=== PATIENT | male | born 1975 | race Caucasian/White ===

== ENCOUNTER → 2019-04-26 08:03 | Outpatient (CLI) | payer BC, SELFPAY ==
--- NOTE | 2019-04-26 08:09 | US_ITS ---
PROCEDURE: US ABDOMEN LIMITED CLINICAL INDICATION: SERUM TOTAL BILLIRUBIN ELEVATED COMPARISON: RUQ US RUQ-(ABD LTD)1ORGAN/QUAD/FU from 12/25/2016 FINDINGS: PANCREAS: Unremarkable. No obvious mass or abnormal fluid collection. No ductal dilatation LIVER: There is diffuse increased echogenicity of the liver with poor through transmission of sound consistent with fatty liver. There is a 16 mm cyst in the mid aspect of the liver. There is appropriate direction of blood flow within the portal vein which is slightly prominent at 15 mm. RIGHT KIDNEY: Unremarkable. Normal size and echogenicity. No hydronephrosis GALLBLADDER: Prior cholecystectomy. Common bile duct is normal at 5 mm IMPRESSION: Fatty liver with mild prominence of the portal vein. Prior cholecystectomy 16 mm hepatic cyst Dictated by: Jase Luciano MD 04/26/2019 18:32 Electronically signed by Jase Luciano MD in [place] 04/26/2019 18:32
== END ==
PROVIDERS: PCP Family Medicine; Visit Provider Family Medicine
DX: R17 Unspecified jaundice (principal)
CPT/HCPCS: 76705

== ENCOUNTER → 2019-10-24 11:44 | Outpatient (CLI) | payer BC, SELFPAY ==
--- NOTE | 2019-10-24 11:51 | XR_ITS ---
PROCEDURE: XR KNEE LT 3V CLINICAL INDICATION: ARTHROPATHY OF KNEE Pain medially COMPARISON: No exams were available for comparison FINDINGS: There are mild osteoarthritic changes of the medial compartment and patellofemoral joint. The joint spaces are well-preserved. No significant degenerative/arthritic changes. No erosive changes evident. Other findings:None. IMPRESSION: Minimal osteoarthritic change Dictated by: Jase Luciano MD 10/24/2019 13:05 Jase Luciano MD in [place] 10/24/2019 13:05
== END ==
PROVIDERS: PCP Family Medicine; Visit Provider Family Medicine
DX: M17.10 Unilateral primary osteoarthritis, unspecified knee (principal)
CPT/HCPCS: 73562

== ENCOUNTER → 2019-11-16 08:03 | Outpatient (CLI) | payer BC, SELFPAY ==
--- NOTE | 2019-11-16 08:12 | XR_ITS ---
PROCEDURE: XR KNEE LT 4V CLINICAL INDICATION: left knee pain; weightbearing COMPARISON: DX XR KNEE LT 3V from 10/24/2019 FINDINGS: There are minimal osteoarthritic changes of the medial compartment and patellofemoral joint. No fracture or dislocation. No lytic or blastic change. Other findings:None. IMPRESSION: Mild osteoarthritis Dictated by: Jase Luciano MD 11/16/2019 16:43 Jase Luciano MD in [place] 11/16/2019 16:43
== END ==
PROVIDERS: PCP Family Medicine; Visit Provider Orthopaedic Surgery
DX: M25.562 Pain in left knee (principal)
CPT/HCPCS: 73564

== ENCOUNTER → 2019-11-23 13:22 | Outpatient (CLI) | payer BC, SELFPAY ==
--- NOTE | 2019-11-23 13:23 | MR_ITS ---
PROCEDURE: MR KNEE LT WO CON CLINICAL INDICATION: left knee pain; evaluate for a meniscal tear PRIOR ARTHROSCOPIC SURGERY IN 97. MEDIAL SIDED KNEE PAIN X4-6MONTHS. KNEE INSTABILITY. PAIN WHEN BENDING AND EXTENDING WORSE WITH EXTENSION. PRIOR X-RAY 11-16-19 COMPARISON: CR XR KNEE LT 4V from 11/16/2019 TECHNIQUE: Routine multiplanar multi echo sequences are performed without gadolinium enhancement. FINDINGS: The cruciate ligaments appear intact. There is slight increased T2 signal with mild thickening of the mid aspect of the medial collateral ligament nonspecific but could be due to mild sprain. No evidence of collateral ligament tear is. The patellar cartilage is well preserved. There is a horizontal tear involving the posterior horn of the medial meniscus. There is mild thickening with increased T2 signal involving the central aspect of the medial meniscus nonspecific. There may also be a radial tear involving the central aspect of the body of the the lateral meniscus has an unremarkable appearance.. There are mild osteoarthritic changes of the medial compartment and patellofemoral joint. There is a small knee joint effusion. IMPRESSION: 1. Horizontal tear of the posterior horn of the medial meniscus with also suspected radial tear of the body of the medial meniscus. 2. Mild osteoarthritic changes of the medial compartment and patellofemoral joint with small knee joint effusion 3. Slight increased T2 signal with mild thickening of the medial collateral ligament which may be due to mild sprain Dictated by: Jase Luciano MD 11/25/2019 13:26 Jase Luciano MD in [place] 11/25/2019 13:26
== END ==
PROVIDERS: PCP Family Medicine; Visit Provider Orthopaedic Surgery
DX: M25.562 Pain in left knee (principal); G89.29 Other chronic pain
CPT/HCPCS: 73721

== ENCOUNTER → 2019-12-11 09:56 | Outpatient (CLI) | payer BC, SELFPAY ==
--- NOTE | 2019-12-11 10:25 | XR_ITS ---
PROCEDURE: XR CHEST 2V Referring Doctor: Maciel Resendez Patient Age:44Y CLINICAL HISTORY: HYPERTENSION, PRE-OP COMPARISON: No exams were available for comparison FINDINGS: PA and lateral chest performed today: Lungs are well expanded and clear with no active disease. The cardiomediastinal silhouette and pulmonary vascularity are within normal limits... The lungs are clear without infiltrates, suspicious nodules, or pleural effusions. No acute bony abnormalities. Anterior fusion lower C-spine incidentally noted. Chest wall and T-spine unremarkable IMPRESSION: Lungs clear. No active disease but . No acute cardiopulmonary findings Dictated by: Jordan Alfred MD 12/11/2019 12:32 Jordan Alfred MD in [place] 12/11/2019 12:32
[2019-12-11 10:42] LABS: Chloride 102 mmol/L (98-107)
[2019-12-11 10:43] LABS: Potassium 4.5 mmoL/L (3.5-5.1); Sodium 141 mmol/L (136-145)
--- NOTE | 2019-12-11 10:43 | ECG_ITS ---
APPROVED REPORT Exam: Resting ECG HR:84 bpm ECG Measurements Heart Rate 84 AXES WY 164 P 23 QRSd 102 QRS 46 QT 366 T 25 QTc 432 Conclusion Normal sinus rhythm Normal ECG Electronically signed by : Lamonte Paez, 12/11/2019 14:14:13
[2019-12-11 10:45] LABS: Alanine Aminotransferase 75 U/L (12-78); Aspartate Amino Transferase 38 U/L (17-59); Blood Urea Nitrogen 12 mg/dl (9-20); Estimated Glomerular Filt Rate 81 ml/min (>60); GFR (African American) 98 ML/MIN (>60)
[2019-12-11 10:46] LABS: Albumin Level 4.8 g/dl (3.5-5.0); Albumin/Globulin Ratio 1.9 (1.1-1.8); Alkaline Phosphatase 63 U/L (38-126); Anion Gap 12.5 mEq/L (5-15); Bilirubin,Total 2.9 mg/dl (0.2-1.3); Calcium 9.8 mg/dl (8.4-10.2); Carbon Dioxide 31 mmol/L (22.0-30.0); Globulin 2.5 g/dL (1.3-3.2); Glucose 150 mg/dl (74-100); Total Protein,Serum 7.3 g/dl (6.3-8.2)
[2019-12-11 10:49] LABS: Basophils # 0.1 K/mm3 (0-0.2); Basophils % 0.8 % (0.1-2.0); Eosinophils # 0.3 K/mm3 (0.0-0.4); Eosinophils % 3.5 % (0.1-12.0); Hematocrit 44.6 % (42.0-52.0); Hemoglobin 14.8 g/dL (14.1-18.0); Lymphocytes # 2.2 K/mm3 (0.7-4.5); Lymphocytes % 28.4 % (10-50); Mean Corpuscular HGB Conc 33.3 g/dL (31.8-35.4); Mean Corpuscular Hemoglobin 30.1 pg (27.0-31.2); Mean Corpuscular Volume 90.5 fl (80-94); Mean Platelet Volume 7.6 fl (7.4-10.4); Monocytes # 0.5 K/mm3 (0.1-1.0); Monocytes % 6.1 % (1.7-9.3); Neutrophils # 4.7 K/mm3 (1.8-7.8); Neutrophils % 61.3 % (37.0-80.0); Platelet Count 224 K/mm3 (142-424); Red Blood Count 4.92 M/mm3 (4.60-6.20); Red Cell Distribution Width 13.5 % (11.5-17.5); White Blood Count 7.6 K/mm3 (4.8-10.8)
[2019-12-11 13:40] LABS: Coronavirus 19 IgG Antibody Negative (Negative); Coronavirus 19 IgM Antibody Negative (Negative)
== END ==
PROVIDERS: PCP Family Medicine; Visit Provider Orthopaedic Surgery
DX: Z01.89 Encounter for other specified special examinations (principal); S83.242D Other tear of medial meniscus, current injury, left knee, subsequent encounter; M25.562 Pain in left knee; M17.12 Unilateral primary osteoarthritis, left knee; G89.29 Other chronic pain
CPT/HCPCS: 36415; 71046; 80053; 85025; 86328; 93005

== ENCOUNTER 2019-12-12 10:07 | Day surgery (SDC) | payer BC, SELFPAY ==
[2019-12-08 12:34] VITALS: BMI 41.8
[2019-12-12] VITALS (16 sets, daily range): BP systolic 121–154; BP diastolic 54–89; PULSE 67–85; RESP 16–18; TEMP 36.4–43; O2SAT 93–100
--- NOTE | 2019-12-12 11:46 | HMH.ANESCL ---
[facility] Anesthesia Checklist - Patient Identification Patient Identification: Arm Band - Structural Data Admitted From: Home Planned Operative Procedure/s: Left Knee Arthroscopy Consent for Planned Operative Procedure(s) Verified: Yes Verified Documents: Surgical Consent, History and Physical - NPO Status Verified Time NPO: 00:00 - Additional verifications Anesthesia Reactions: No Hx Blood Transfusions: No Blood Transfusion Reaction: No - Airway Assessment C-Spine Mobility Assessed: Yes (mp2) TMJ Mobility Assessed: Yes Dentition: Good Dentition - Neurological Assessment Level of Consciousness: Awake, Alert - Anesthesia Plan Anesthesia Risk discussed: Yes Anesthesia Plan: Verified ASA Class: III Anesthesia Type: General [facility] History I have reviewed the patient's past medical history: Yes Medical History: Reports:: Hyperlipidemia, Hypertension Denies:: Cancer, Diabetes Mellitus Type 1, Diabetes Mellitus Type 2, Internal Pacemaker, MRSA, Seizures *Have you ever received a pneumonia vaccine?: No *Have you received a flu vaccine this season?: No Other Medical History: Reports: Arthritis. Denies: Blood Transfusion Reaction Anesthesia experience/problems:: nac Laterality Cases: Left: Arthroscopy Knee, Bilateral: Other Other Surgeries: Yes: Cholecystectomy, Other (acdf). No: Pacemaker Amputation: No Fractures: No - *Social History Last grade of school completed: Some college Smoking Status: Never smoker Alcohol Intake: never Substance Use Type: denies use *Occupational Status:: employed Housing: house Household Members: spouse, family *Travel in the last 8 weeks: None Family Hx:: No significant family history
--- NOTE | 2019-12-12 15:10 | P.PN_ITS ---
[facility] Anesthesia Record Part I Intake, IV Amount: 750 Estimated blood loss (mL): 10 Urine output (mL): 0 Blood Products used (#): none Blood Pressure: 121/71 SaO2: 93 Pulse Rate: 67 Respiratory Rate: 18 Temperature: 97.8 F Patient is:: Drowsy, Nasal O2, Stable Stable to PACU at:: 15:06
--- NOTE | 2019-12-12 15:44 | HMH.OPNOTE ---
Date of procedure: 12/12/19 Pre-op Diagnosis:: 1. Complex tear of medial meniscus, left knee 2. Osteoarthritis, left knee Post-op Diagnosis:: 1. Complex degenerative tear of medial meniscal, left knee 2. Osteoarthritis, left knee 3. Pathological medial plica, left knee Procedure performed:: 1. Examination of left knee under anesthesia 2. Partial medial meniscectomy, left knee 3. Chondroplasty, left knee 4. Resection of medial plica, left knee Surgeon:: Maciel Resendez MD Yard Jockey(s):: Josefina Waite PREVENTIVE MAINTENANCE COORDINATOR:: Kendrick Mart Anesthesia: GETA Estimated blood loss (mL): 2 Clinical Note:: The patient is a 44-year-old male with left knee pain which is unresponsive to conservative management and evidence of a medial meniscal tear and early arthritic changes on imaging. Clinically his symptoms are consistent with the above diagnosis. Resection of the torn medial meniscus, chondroplasty and debridement is indicated to relieve the pain and improve function of the knee. He previously had arthroscopic surgery on his left knee in 1997 for a torn meniscus. Please refer to my office note for full details. Operative findings:: Examination of the left knee under anesthesia, showed a stable knee joint. There is a small amount of knee joint effusion. Knee range of motion is from 0-140? of flexion. Operative findings showed diffuse grade 2 degenerative changes over the patellar articular surface and trochlea. The medial femoral condyle and medial tibial plateau as well as the lateral compartment is well preserved. The medial meniscus had a complex degenerative tear involving the body and posterior horn. The lateral meniscus was noted to be intact. There is debris and small cartilaginous loose bodies in the knee. The anterior cruciate ligament and posterior cruciate ligaments were intact. A thickened and pathological medial plica was noted. Mild synovitis was noted. Operative note:: On the day of the procedure the patient was met in the preoperative area and positively identified. A physical examination was performed and documented. The limb was marked and initialed by me. I have again discussed the diagnosis, management options including both nonsurgical and surgical. I have discussed the proposed surgical procedure, risks and benefits and alternatives in detail. The complications discussed include but are not limited to infection, injury to nerves and blood vessels, injury to the ligaments and tendons, knee stiffness, arthrofibrosis, incomplete relief, incomplete functional recovery, DVT, PE, CRPS, complications related to anesthesia including heart attack, stroke and even . I have also discussed about the likely need for further surgery in future. I told him that there were no guarantees with surgery; he could be no better or even worse. We also discussed the postoperative recovery and rehabilitation that might be needed. I believe the patient to be well informed with regard to the proposed surgery. I told him that it would take few months for full recovery of the knee after surgery. He expressed a full understanding and wished to proceed with the planned surgery. Patient understood the risks, agreed to proceed with surgery, and no guarantees or assurances were given or implied. Patient was brought to the operating room and placed supine on the operating table. All the bony prominences were appropriately padded. A general anesthesia was administered by the machine brush maker. A well-padded tourniquet cuff was placed over the left upper thigh. Examination of the left knee under anesthesia was performed. A small amount of knee effusion was noted. Knee range of motion was 0-140 degrees of flexion. Knee joint is noted to be ligamentously stable. The left knee was then prepped and draped in the usual sterile fashion. A preprocedure timeout was performed as per protocol. Administration of prophylactic IV antibiotics was confirmed with the anesthetic team. The arthroscopic
--- NOTE | 2019-12-12 16:38 | P.PN_ITS ---
[facility] Anesthesia Record Part II Discharge Time: 15:36 Destination: Surgical Day Care (OP Surgery) PACU nurse assessment reviewed?: Yes Patient Condition:: Good Anesthesia Complications:: None Swallowing reflex intact?: Yes Cyanosis?: No Blood Pressure: 127/77 Pulse Rate: 72 Temperature: 98.0 F Mental Status: Alert & Oriented Pain level:: 8 Nausea and/or vomitting:: None Intake, IV Amount: 50
== END 2019-12-12 16:30 | disposition home or self-care (01) ==
LOC: OR 10:08
PROVIDERS: PCP Family Medicine; Visit Provider Orthopaedic Surgery
PROC: (CPT 29870; principal; 2019-12-12 11:45)
DX: M17.12 Unilateral primary osteoarthritis, left knee (principal); M25.562 Pain in left knee; M23.232 Derangement of other medial meniscus due to old tear or injury, left knee; M94.262 Chondromalacia, left knee
CPT/HCPCS: 29881; 96374

== ENCOUNTER → 2020-07-23 08:13 | Outpatient (CLI) | payer BC, SELFPAY ==
[2020-07-23 09:21] LABS: Alanine Aminotransferase 91 U/L (12-78); Albumin Level 5.2 g/dl (3.5-5.0); Albumin/Globulin Ratio 2.3 (1.1-1.8); Alkaline Phosphatase 71 U/L (38-126); Anion Gap 12.9 mEq/L (5-15); Aspartate Amino Transferase 46 U/L (17-59); Bilirubin,Total 4.3 mg/dl (0.2-1.3); Blood Urea Nitrogen 15 mg/dl (9-20); Calcium 9.7 mg/dl (8.4-10.2); Carbon Dioxide 30 mmol/L (22.0-30.0); Chloride 101 mmol/L (98-107); Chol/HDL Ratio 3.8 (1-3.5); Cholesterol 143 mg/dl (140-200); Estimated Glomerular Filt Rate 80 ml/min (>60); GFR (African American) 97 ML/MIN (>60); Globulin 2.3 g/dL (1.3-3.2); Glucose 110 mg/dl (74-100); HDL Cholesterol 38 mg/dl (40-60); Potassium 4.9 mmoL/L (3.5-5.1); Sodium 139 mmol/L (136-145); Total Protein,Serum 7.5 g/dl (6.3-8.2); Triglycerides 263 mg/dl (30-150); VLDL Cholesterol 53 mg/dL (0-40)
[2020-07-23 09:32] LABS: Direct LDL Cholesterol 68.98 mg/dL (100-129)
[2020-07-23 09:52] LABS: Thyroid Stimulating Hormone 1.86 uIU/mL (0.465-4.68)
== END ==
PROVIDERS: Visit Provider Family Medicine
DX: I10 Essential (primary) hypertension (principal); E78.5 Hyperlipidemia, unspecified
CPT/HCPCS: 36415; 80053; 80061; 84443

== ENCOUNTER → 2020-09-03 08:25 | Outpatient (CLI) | payer BC, SELFPAY ==
[2020-09-03 09:49] LABS: Chol/HDL Ratio 3.6 (1-3.5); Cholesterol 121 mg/dl (140-200); HDL Cholesterol 34 mg/dl (40-60); Triglycerides 209 mg/dl (30-150); VLDL Cholesterol 42 mg/dL (0-40)
[2020-09-03 10:02] LABS: Direct LDL Cholesterol 56.55 mg/dL (100-129)
== END ==
PROVIDERS: Visit Provider Family Medicine
DX: E78.2 Mixed hyperlipidemia (principal)
CPT/HCPCS: 36415; 80061

== ENCOUNTER 2020-12-17 08:50 | Inpatient (IN) | payer OTHER, BC, SELFPAY ==
[2020-12-17] VITALS (12 sets, daily range): BP systolic 96–139; BP diastolic 49–74; PULSE 67–80; RESP 16–20; TEMP 36.5–37.2; O2SAT 92–96; BMI 40.4
--- NOTE | 2020-12-17 09:02 | HMH.EDGENADL ---
ED Disposition Clinical Impression: Acute hypoxemic respiratory failure due to COVID-19 Disposition: Admitted As Inpatient Condition on Discharge: Fair Referrals: Logan Garza MD [Primary Care Provider] - - Critical Care Critical Care Time: No Attestation: On 12/17/20, the high probability of a clinically significant, sudden or life threatening deterioration of the following system(s) required my full and direct attention, intervention and personal management. The time I documented below is in addition to time spent performing reported procedures but includes the following listed in this critical care notation. Medical Decision Making - Medical Records Medical records reviewed: Yes: I reviewed the patient's medical records. - Brandon Inquiry Pt receiving controlled substance: No Brandon was queried for this patient: No Vital Signs: 12/17/20 08:51 12/17/20 09:30 12/17/20 10:00 Temperature 98.4 F Temperature Source Oral Pulse Rate 67 68 Pulse Rate [Left Radial] 78 Respiratory Rate 18 Blood Pressure 100/56 L 112/66 Blood Pressure [Right Arm] 107/56 L Blood Pressure Mean [Right Arm] 73 Blood Pressure Source [Right Arm] Automatic Cuff Blood Pressure Position [Right Arm] Sitting 02 Sat by Pulse Oximetry 94 L 94 L 94 L Oxygen Delivery Method Room Air Nasal Cannula Nasal Cannula Oxygen Flow Rate (LPM) 6 6 - Lab Data Lab Results 12/17/20 08:56: SARS-CoV-2 (PCR) Detected A, Influenza A Untype (PCR) Not detected, Influenza Type B (PCR) Not detected 12/17/20 09:10: Sodium 137, Potassium 3.8, Chloride 97 L, Carbon Dioxide 27, Anion Gap 16.8 H, BUN 30 H, Creatinine 1.90 H, Estimated Creat Clear 90, Estimated GFR 38 L, Est GFR ( Amer) 46 L, Glucose 109 H, Calcium 8.3 L, Total Bilirubin 2.9 H, AST 69 H, ALT 44, Alkaline Phosphatase 65, Total Protein 7.1, Albumin 4.0, Globulin 3.1, Albumin/Globulin Ratio 1.3 12/17/20 09:10: WBC 9.1, RBC 4.17 L, Hgb 12.4 L, Hct 37.4 L, MCV 89.7, MCH 29.8, MCHC 33.2, RDW 13.6, Plt Count 286, MPV 7.8, Neut % (Auto) 88.2 H, Lymph % (Auto) 8.8 L, [place] % (Auto) 2.1, Eos % (Auto) 0.5, Baso % (Auto) 0.3, Neut # (Auto) 8.1 H, Lymph # (Auto) 0.8, [place] # (Auto) 0.2, Eos # (Auto) 0.0, Baso # (Auto) 0.0, Total Counted 100, Neutrophils % (Manual) 85 H, Lymphocytes % (Manual) 14, Monocytes % (Manual) 1 L, Platelet Estimate Normal 12/17/20 09:10: Lactate 1.0 12/17/20 09:10: SARS-CoV-2 IgG Ab (Rapid) Positive A, SARS-CoV-2 IgM Ab (Rapid) Negative Result diagrams: 12/17/20 09:10 12/17/20 09:10 Orders (Tests/Meds): ED MEDICATIONS Generic Name Dose Route Start Last Admin Trade Name Freq PRN Reason Stop Dose Admin Acetaminophen 650 mg 12/17/20 09:08 12/17/20 09:15 Acetaminophen 325mg Tab PO 01/16/21 09:07 650 mg Q6HP PRN Administration Mild pain,fever,headache Ascorbic Acid 500 mg 12/17/20 13:00 Ascorbic Acid 500mg Tab PO 01/16/21 12:59 QID KIEL Dexamethasone Sodium Phosphate 6 mg 12/17/20 09:15 12/17/20 10:04 Dexamethasone 4mg/Ml 1ml Vial IV 01/16/21 09:14 6 mg DAILY KIEL Administration Ergocalciferol 50,000 unit 12/17/20 09:15 Ergocalciferol 50,000 Units (1.25mg) Capsule PO 01/16/21 09:14 WEEKLY KIEL Ibuprofen 400 mg 12/17/20 10:11 Ibuprofen 400 Mg Tablet PO 01/16/21 10:10 Q6HP PRN Mild Pain Pantoprazole Sodium 40 mg 12/17/20 10:15 Pantoprazole 40mg Tablet PO 01/16/21 10:14 DAILY KIEL Zinc Sulfate 220 mg 12/17/20 09:15 Zinc Sulfate 220mg Capsule PO 01/16/21 09:14 DAILY KIEL Discontinued Medications Generic Name Dose Route Start Last Admin Trade Name Freq PRN Reason Stop Dose Admin Sodium Chloride 1,000 mls @ 100 mls/hr 12/17/20 09:15 12/17/20 09:16 Sod Chlor 0.9% 1000ml Bag IV 01/16/21 09:14 Not Given .Q10H KIEL Lactated Ringer's 500 mls @ 999 mls/hr 12/17/20 09:15 12/17/20 09:15 Lactated Ringer's 1000 Ml Bag IV 12/17/20 09:45 Not Given .Q31M SC
--- NOTE | 2020-12-17 09:08 | XR_ITS ---
PROCEDURE: XR CHEST PORTABLE CLINICAL HISTORY: concern for covid pneumonia COMPARISON: CR XR CHEST 2V from 12/11/2019 FINDINGS: The cardiomediastinal silhouette and pulmonary vascularity are within normal limits. Multifocal bilateral ground-glass infiltrates are present in the right mid and lower lung zone in the left upper and left lower lobe. No effusions. Bone plate overlies the lower cervical spine. IMPRESSION: Bilateral multifocal pneumonia consistent with Covid19 pneumonia Dictated by: Jase Luciano MD 12/17/2020 10:32 Jase Luciano MD in [place] 12/17/2020 10:32
[2020-12-17 09:21] LABS: Influenza A, PCR Not Detected (NotDetected); Influenza B, PCR Not Detected (NotDetected)
[2020-12-17 09:28] LABS: Basophils % 0.3 % (0.1-2.0); Eosinophils % 0.5 % (0.1-12.0); Hematocrit 37.4 % (42.0-52.0); Hemoglobin 12.4 g/dL (14.1-18.0); Lymphocytes # 0.8 K/mm3 (0.7-4.5); Lymphocytes % 8.8 % (10-50); Mean Corpuscular HGB Conc 33.2 g/dL (31.8-35.4); Mean Corpuscular Hemoglobin 29.8 pg (27.0-31.2); Mean Corpuscular Volume 89.7 fl (80-94); Mean Platelet Volume 7.8 fl (7.4-10.4); Monocytes # 0.2 K/mm3 (0.1-1.0); Monocytes % 2.1 % (1.7-9.3); Neutrophils # 8.1 K/mm3 (1.8-7.8); Neutrophils % 88.2 % (37.0-80.0); Platelet Count 286 K/mm3 (142-424); Red Blood Count 4.17 M/mm3 (4.60-6.20); Red Cell Distribution Width 13.6 % (11.5-17.5); White Blood Count 9.1 K/mm3 (4.8-10.8)
[2020-12-17 09:31] LABS: Chloride 97 mmol/L (98-107); Potassium 3.8 mmoL/L (3.5-5.1); Sodium 137 mmol/L (136-145)
[2020-12-17 09:33] LABS: Alanine Aminotransferase 44 U/L (12-78); Aspartate Amino Transferase 69 U/L (17-59); Bilirubin,Total 2.9 mg/dl (0.2-1.3); Blood Urea Nitrogen 30 mg/dl (9-20); Creatinine Clearance Estimated 90 mL/min (50-200); Estimated Glomerular Filt Rate 38 ml/min (>60); GFR (African American) 46 ML/MIN (>60)
[2020-12-17 09:34] LABS: Albumin/Globulin Ratio 1.3 (1.1-1.8); Alkaline Phosphatase 65 U/L (38-126); Anion Gap 16.8 mEq/L (5-15); Calcium 8.3 mg/dl (8.4-10.2); Carbon Dioxide 27 mmol/L (22.0-30.0); Globulin 3.1 g/dL (1.3-3.2); Glucose 109 mg/dl (74-100); Total Protein,Serum 7.1 g/dl (6.3-8.2)
[2020-12-17 09:43] LABS: MANUAL DIFFERENTIAL MANUAL DIFFERENTIAL (MANUAL DIFF)
[2020-12-17 09:47] LABS: Coronavirus 19, PCR Detected (NotDetected)
[2020-12-17 09:49] LABS: Lymphocytes % 14 % (10-50); Monocytes % 1 % (2-9); Neutrophils % 85 % (42-76); Platelet Estimate Normal; Total Cells Counted 100
--- NOTE | 2020-12-17 09:55 | PC.NURSE ---
speaking with Dr. Smith
--- NOTE | 2020-12-17 09:59 | CT_ITS ---
PROCEDURE: CT ANGIO CHEST PE PROTOCOL CLINCIAL INDICATION: Covid hypoxia COMPARISON: No exams were available for comparison TECHNIQUE: IV Contrast: 70ML Isovue 370 Axial images obtained with sagittal and coronal reformats. All CT scans at the facility use one or more dose reduction, viz: automated exposure control, ma/kV adjustment per patient size (including targeted exams where dose is matched to indication, i.e. head), or iterative reconstruction technique. FINDINGS: HEART AND MEDIASTINAL STRUCTURES: No evidence of pulmonary embolus. No evidence of aortic aneurysm. There are few scattered small mediastinal lymph nodes.. LUNGS AND PLEURAL SPACES: Multifocal ground-glass infiltrates in both upper and lower lobes consistent with Covid19 pneumonia. No effusions. No evidence of pneumothorax. There are 2 hypodense hepatic lesions 1 in the left hepatic lobe segment 4 a. Where imaging for Infinitt and 1 left hepatic lobe segment 4 B. these measure approximately 2 cm and may represent hepatic cysts small Maggie portal lymph nodes are present. BONY STRUCTURES: No acute bony abnormalities apparent. UPPER ABDOMEN: Unremarkable. ADDITIONAL FINDINGS: No other significant abnormalities. IMPRESSION: 1. No evidence of pulmonary embolus. 2. Multifocal diffuse bilateral pneumonia consistent with Covid19 Dictated by: Jase Luciano MD 12/17/2020 11:07 Jase Luciano MD in [place] 12/17/2020 11:07
--- NOTE | 2020-12-17 10:04 | ECG_ITS ---
APPROVED REPORT Exam: Resting ECG HR:73 bpm ECG Measurements Heart Rate 73 AXES NE 156 P 25 QRSd 96 QRS 41 QT 402 T 15 QTc 442 Conclusion Normal sinus rhythm Normal ECG Electronically signed by : Kendrick Machado MD 12/19/2020 17:30:37
--- NOTE | 2020-12-17 10:23 | HMH.HP ---
*Admission Date: 12/17/20 *Chief complaint: Shortness of breath *History of present illness: Mr. Villatoro is a 45yo male with history of hypertension and hyperlipidemia. He presented to the [facility] ED with shortness of breath. He denies any fevers, nausea, vomiting, or diarrhea at home but does state that he has had headache, cough, fatigue, lightheadedness, and generalized body aches. His symptoms began on December 12. He has a pulse ox at home which he has been using to monitor his oxygen and notes it has dropped as low as 83% at home. He denies any history of COPD, asthma, or smoking. He has not received a COVID-19 vaccine. Upon arrival to the ED, patient was found to be hypoxic and placed on oxygen at 6lpm. His COVID screen was positive and bloodwork showed a mild NIMA with creatinine of 1.9. He was given a liter of fluids and acetaminophen and his case was discussed with Dr. Smith. He will be admitted with orders for pulmonary consult as well as IgG and IgM antibodies and Chest CT. At this time, he is resting comfortably on a stretcher. He denies any pain. His O2 sat is 95% on 6lpm. He reports considerable improvement in his shortness of breath with O2 in place although it increased with any movement. CXR and Chest CT have both been completed and reports are pending. [facility] History Medical History: Reports:: Hyperlipidemia, Hypertension Denies:: Cancer, Diabetes Mellitus Type 1, Diabetes Mellitus Type 2, Internal Pacemaker, MRSA, Seizures *Have you ever received a pneumonia vaccine?: No *Have you received a flu vaccine this season?: No Other Medical History: Reports: Arthritis. Denies: Blood Transfusion Reaction Laterality Cases: Left: Arthroscopy Knee, Bilateral: Other Other Surgeries: Yes: Cholecystectomy, Other (acdf). No: Pacemaker Amputation: No Fractures: No - *Social History Smoking Status: Never smoker Alcohol Intake: never Substance Use Type: denies use *Occupational Status:: employed Housing: house Household Members: spouse, family *Travel in the last 8 weeks: None Family Hx:: Cancer, Coronary Artery Disease, Diabetes, Hypertension Review of Systems - Constitutional Reports body ache(s), Reports fatigue, Reports headache(s), Denies chills, Denies fever(s) - Eyes Reports blurry vision, Reports change in vision - ENT Reports dizziness, Reports headache(s), Denies difficulty swallowing, Denies ear pain, Denies nasal congestion, Denies pain with swallowing, Denies post nasal drip, Denies sinus pain, Denies sore throat - *Cardiovascular Reports shortness of breath, Reports shortness of breath with activity, Reports lightheadedness, Denies chest pain, Denies irregular heart rhythm, Denies leg swelling, Denies rapid, pounding, or irregular heartbeat - *Respiratory Reports chest congestion, Reports cough, Reports shortness of breath, Reports shortness of breath with activity, Reports pain with cough - *Gastrointestinal Denies abdominal pain, Denies loose stools, Denies nausea, Denies vomiting - *Genitourinary Denies difficulty urinating - *Musculoskeletal Reports body aches - Integumentary/Breasts Denies rash - *Neurologic Reports headache(s) - Psychiatric Denies abnormal sleep pattern - Endocrine Denies rapid, pounding, or irregular heartbeat - Hematologic/Lymphatic Denies enlarged lymph nodes Meds Home Medications Medication Instructions Recorded Confirmed Type atorvastatin 10 mg tablet 10 mg PO DAILY tab 11/16/19 12/14/19 History Losartan/Hydrochlorothiazide 1 tab PO DAILY 12/17/20 12/17/20 History [Losartan-Hctz 100-12.5 mg Tab] Allergies Allergy/AdvReac Type Severity Reaction Status Date / Time No Known Allergies Allergy Verified 12/27/19 13:24 Exam Vital signs and Labs for Last 24 Hours: Temp Pulse Resp BP Pulse Ox 98.4 F 78 18 107/56 L 94 L 12/17/20 08:51 12/17/20 08:51 12/17/20 08:51 12/17/20 08:51 12/17/20 08:51 Laboratory Results - last 24
[2020-12-17 10:35] LABS: Coronavirus 19 IgG Antibody Positive (Negative); Coronavirus 19 IgM Antibody Negative (Negative)
--- NOTE | 2020-12-17 10:38 | PC.NURSE ---
Pt returned from rad
--- NOTE | 2020-12-17 11:20 | PC.NURSE ---
Report called to Suzy HARRY, waiting for confirmation on room being clean and then pt will be moved
--- NOTE | 2020-12-17 11:39 | HMH.PHAINT ---
MEDICATION RECONCILIATION COMPLETE USING [employer]URESCRIPTS INFO
--- NOTE | 2020-12-17 18:31 | PC.NURSE ---
PT IS RESTING IN BED. NO COMPLAINTS OF DISCOMFORT. ALERT AND ORIENTED X4. O2 SATURATION HAS MAINTAINED 90-94% ON 4 L NC. LUNG SOUNDS DIMINISHED WITH BILATERAL CRACKLES. ABDOMEN SOFT/NON TENDER WITH ACTIVE BOWEL SOUNDS. AMBULATES TO THE BATHROOM. WILL CONTINUE TO MONITOR.
[2020-12-17 19:59] LABS: Alanine Aminotransferase 47 U/L (12-78); Albumin Level 3.7 g/dl (3.5-5.0); Albumin/Globulin Ratio 1.2 (1.1-1.8); Alkaline Phosphatase 58 U/L (38-126); Anion Gap 14.7 mEq/L (5-15); Aspartate Amino Transferase 65 U/L (17-59); Bilirubin,Total 2.5 mg/dl (0.2-1.3); Blood Urea Nitrogen 23 mg/dl (9-20); Carbon Dioxide 28 mmol/L (22.0-30.0); Chloride 99 mmol/L (98-107); Creatinine Clearance Estimated 143 mL/min (50-200); Estimated Glomerular Filt Rate 65 ml/min (>60); GFR (African American) 79 ML/MIN (>60); Globulin 3.1 g/dL (1.3-3.2); Glucose 169 mg/dl (74-100); Potassium 3.7 mmoL/L (3.5-5.1); Sodium 138 mmol/L (136-145); Total Protein,Serum 6.8 g/dl (6.3-8.2)
--- NOTE | 2020-12-17 22:51 | PC.NURSE ---
7855 humidification added to patient's O2
[2020-12-18] VITALS (12 sets, daily range): BP systolic 94–137; BP diastolic 53–74; PULSE 66–86; RESP 18–24; TEMP 36.9–38.9; O2SAT 87–98; BMI 40.6
--- NOTE | 2020-12-18 07:11 | HMH.PHAVTE ---
[facility] Pharmacy VTE Monitoring - Patient Demographics Admission date: 12/17/20 Report Date: 12/18/20 Time: 07:11 Allergies/Adverse Reactions: Patient Allergies No Known Allergies Allergy (Verified 12/27/19 13:24) Height: 1.8 m Weight: 131.542 kg Patient Problems: Current Active Problems Acute hypoxemic respiratory failure due to COVID-19 (Acute) - VTE Risk Labs: VTE Related Lab Results Hgb 12.4 g/dL (14.1-18.0) L 12/17/20 09:10 Hct 37.4 % (42.0-52.0) L 12/17/20 09:10 Plt Count 286 K/mm3 (142-424) 12/17/20 09:10 BUN 23 mg/dl (9-20) H 12/17/20 18:55 Creatinine 1.20 mg/dl (0.66-1.25) D 12/17/20 18:55 Estimated Creat Clear 143 mL/min (50-200) 12/17/20 18:55 Was VTE Risk Assessment Performed: Yes VTE Score: 1 Clinical Trial Participant: No - Prophylaxis VTE Prophylaxis Ordered?: Yes Types of VTE Prophylaxis: TEDS Knee High, Pharmacological Pharmacologic Type: Enoxaparin
--- NOTE | 2020-12-18 08:16 | P.PN_ITS ---
Internal Medicine - PN: Subj *Date: 12/18/20 *Time: 08:16 Interval history: Patient states he feels terrible this morning. He did not sleep last night due to fever, cough, and IV beeping. He is not interested in eating. Feels short of breath. He has some midsternal chest discomfort as well as a sore throat. O2 sat at 92 with O2 at 6 L/min.Temperature was 100.8 and then 99.6 this a.m. Exam Vital signs and Labs for Last 24 Hours: Temp Pulse Resp BP Pulse Ox 99.6 F 81 20 110/62 92 L 12/18/20 04:00 12/18/20 04:00 12/18/20 04:00 12/18/20 04:00 12/18/20 04:00 Laboratory Results - last 24 hr 12/17/20 08:56: SARS-CoV-2 (PCR) Detected A, Influenza A Untype (PCR) Not detected, Influenza Type B (PCR) Not detected 12/17/20 09:10: Sodium 137, Potassium 3.8, Chloride 97 L, Carbon Dioxide 27, Anion Gap 16.8 H, BUN 30 H, Creatinine 1.90 H, Estimated Creat Clear 90, Estimated GFR 38 L, Est GFR ( Amer) 46 L, Glucose 109 H, Calcium 8.3 L, Total Bilirubin 2.9 H, AST 69 H, ALT 44, Alkaline Phosphatase 65, Total Protein 7.1, Albumin 4.0, Globulin 3.1, Albumin/Globulin Ratio 1.3 12/17/20 09:10: WBC 9.1, RBC 4.17 L, Hgb 12.4 L, Hct 37.4 L, MCV 89.7, MCH 29.8, MCHC 33.2, RDW 13.6, Plt Count 286, MPV 7.8, Neut % (Auto) 88.2 H, Lymph % (Auto) 8.8 L, Lane % (Auto) 2.1, Eos % (Auto) 0.5, Baso % (Auto) 0.3, Neut # (Auto) 8.1 H, Lymph # (Auto) 0.8, Lane # (Auto) 0.2, Eos # (Auto) 0.0, Baso # (Auto) 0.0, Total Counted 100, Neutrophils % (Manual) 85 H, Lymphocytes % (Manual) 14, Monocytes % (Manual) 1 L, Platelet Estimate Normal 12/17/20 09:10: Lactate 1.0 12/17/20 09:10: SARS-CoV-2 IgG Ab (Rapid) Positive A, SARS-CoV-2 IgM Ab (Rapid) Negative 12/17/20 18:55: Sodium 138, Potassium 3.7, Chloride 99, Carbon Dioxide 28, Anion Gap 14.7, BUN 23 H, Creatinine 1.20 D, Estimated Creat Clear 143, Estimated GFR 65, Est GFR ( Amer) 79 D, Glucose 169 H D, Calcium 8.0 L, Total Simeon irubin 2.5 H, AST 65 H, ALT 47, Alkaline Phosphatase 58, Total Protein 6.8, Albumin 3.7, Globulin 3.1, Albumin/Globulin Ratio 1.2 I & O for Last 24 hours: Intake & Output 12/15/20 12/16/20 12/17/20 12/18/20 11:59 11:59 11:59 11:59 Intake Total 720 / 720 Output Total 2800 / 2800 Balance -2079 / -2080 Weight 290 lb 290 lb - Constitutional no acute distress Comments: Parents uncomfortable and somewhat anxious. - *Routine HEENT Exam ENT: Present: mucous membranes moist, oropharynx clear - *Routine Respiratory Exam Present: crackles (In all lobes on the left. Right basilar crackles) - *Routine Cardiovascular Exam Present: RRR - *Routine Abdominal Exam Present: soft, normoactive bowel sounds. Absent: tenderness - *Routine Extremities Exam Present: pulses intact. Absent: edema, calf tenderness - *Routine Neurological Exam Present: alert, oriented X3 Assessment and Plan (1) Acute hypoxemic respiratory failure due to COVID-19 Status: Acute Category: Medical Code(s): U07.1 - COVID-19; J96.01 - Acute respiratory failure with hypoxia - Assessment and plan all Dx Assessment and Plan for all problems:: We will repeat chest x-ray and labs this a.m. We will start duo nebs. Continue with Motrin and Tylenol for fever and discomfort. Pulmonary to see patient today
--- NOTE | 2020-12-18 08:21 | XR_ITS ---
PROCEDURE: XR CHEST PORTABLE CLINICAL HISTORY: COVID pneumonia; cough COMPARISON: CR XR CHEST 2V from 12/11/[address] ANGIO CHEST PE PROTOCOL from 12/17/2020 CR XR CHEST PORTABLE from 12/17/2020 FINDINGS: The cardiomediastinal silhouette and pulmonary vascularity are within normal limits. Diffuse bilateral airspace disease is once again noted and appears worse in both upper and lower lobes with some sparing of the right apex. No evidence of pneumothorax. No acute bony abnormalities. IMPRESSION: Worsening bilateral airspace disease consistent with worsening Covid19 pneumonia Dictated by: Jase Luciano MD 12/18/2020 09:26 Jase Luciano MD in [place] 12/18/2020 09:26
[2020-12-18 08:40] LABS: Basophils % 0.3 % (0.1-2.0); Eosinophils % 0.1 % (0.1-12.0); Hematocrit 36.2 % (42.0-52.0); Lymphocytes % 10.2 % (10-50); Mean Corpuscular HGB Conc 33.2 g/dL (31.8-35.4); Mean Corpuscular Volume 90.5 fl (80-94); Mean Platelet Volume 7.7 fl (7.4-10.4); Monocytes # 0.3 K/mm3 (0.1-1.0); Monocytes % 2.6 % (1.7-9.3); Neutrophils # 8.7 K/mm3 (1.8-7.8); Neutrophils % 86.9 % (37.0-80.0); Platelet Count 324 K/mm3 (142-424); Red Blood Count 3.99 M/mm3 (4.60-6.20); Red Cell Distribution Width 13.4 % (11.5-17.5)
[2020-12-18 08:45] LABS: MANUAL DIFFERENTIAL MANUAL DIFFERENTIAL (MANUAL DIFF)
[2020-12-18 09:02] LABS: Lymphocytes % 9 % (10-50); Monocytes % 1 % (2-9); Neutrophils % 90 % (42-76); Platelet Estimate Normal; Total Cells Counted 100
[2020-12-18 09:10] LABS: Chloride 103 mmol/L (98-107)
[2020-12-18 09:11] LABS: Potassium 3.6 mmoL/L (3.5-5.1); Sodium 140 mmol/L (136-145)
[2020-12-18 09:13] LABS: Alanine Aminotransferase 45 U/L (12-78); Albumin Level 3.4 g/dl (3.5-5.0); Albumin/Globulin Ratio 1.3 (1.1-1.8); Alkaline Phosphatase 62 U/L (38-126); Anion Gap 11.6 mEq/L (5-15); Aspartate Amino Transferase 69 U/L (17-59); Bilirubin,Total 2.1 mg/dl (0.2-1.3); Blood Urea Nitrogen 18 mg/dl (9-20); Carbon Dioxide 29 mmol/L (22.0-30.0); Creatinine Clearance Estimated 95 mL/min (50-200); Estimated Glomerular Filt Rate 80 ml/min (>60); GFR (African American) 97 ML/MIN (>60); Globulin 2.7 g/dL (1.3-3.2); Total Protein,Serum 6.1 g/dl (6.3-8.2)
[2020-12-18 09:14] LABS: Glucose 119 mg/dl (74-100)
--- NOTE | 2020-12-18 10:43 | HMH.PULMCON ---
*Admission Date: 12/17/20 *Reason for consult:: Acute hypoxic respiratory failure, COVID-19 pneumonia *History of present illness: Mr. Villatoro is a 45-year-old male yet to be vaccinated works for [employer], high risk for exposure presented to the hospital with worsening shortness of breath and respiratory distress for the last 4 days gradually getting worse eventually and presented to the ED patient was needing 6 to 10 L nasal cannula supplementation to maintain saturations are low and pulmonary was called for further management. [facility] History Medical History: Reports:: Hyperlipidemia, Hypertension Denies:: Cancer, Diabetes Mellitus Type 1, Diabetes Mellitus Type 2, Internal Pacemaker, MRSA, Seizures *Have you ever received a pneumonia vaccine?: No *Have you received a flu vaccine this season?: No Other Medical History: Reports: Arthritis. Denies: Blood Transfusion Reaction Laterality Cases: Left: Arthroscopy Knee, Bilateral: Other Other Surgeries: Yes: Cholecystectomy, Other (acdf). No: Pacemaker Amputation: No Fractures: No - *Social History Last grade of school completed: Some college Smoking Status: Never smoker Alcohol Intake: never Substance Use Type: denies use *Occupational Status:: employed Housing: house Household Members: spouse *Travel in the last 8 weeks: None Family Hx:: Cancer, Coronary Artery Disease, Diabetes, Hypertension ROS - Cons Reports anorexia, Reports fever(s) - Eyes Denies change in vision - ENT Denies bleeding gums - Card Reports shortness of breath, Reports shortness of breath with activity - Resp Respiratory: Reports shortness of breath, Reports chest congestion, Reports cough, Reports dyspnea on exertion, Denies excessive phlegm production - GI Gastrointestingal: Reports: abdominal pain. Denies: change in stool character, coffee ground emesis - Psych Reports abnormal sleep pattern Meds Home Medications Medication Instructions Recorded Confirmed Type atorvastatin 10 mg tablet 10 mg PO HS tab 11/16/19 12/17/20 History Losartan/Hydrochlorothiazide 1 tab PO DAILY 12/17/20 12/17/20 History [Losartan-Hctz 100-12.5 mg Tab] Allergies Allergy/AdvReac Type Severity Reaction Status Date / Time No Known Allergies Allergy Verified 12/27/19 13:24 Exam - Constitutional Constitutional:: Present: no acute distress, comfortable - HENMT Exam HENMT: Present: normocephalic, atraumatic - Eye Exam Eyes:: Present: normal appearance both eyes and related structures - Neck Exam Neck:: Present: normal visual inspection - Respiratory Exam Respiratory:: Present: respiratory distress, crackles, rales. Absent: able to speak in complete sentences - Cardiovascular Exam Cardiac:: Present: S1, S2 - GI Exam GI:: Present: soft - Skin Exam Skin: Present: warm, no rash, dry - Neurological Exam Neurological: Present: alert, awake, normal cognition - Extremities Exam Extremities: Present: no cyanosis, no clubbing, no edema Internal Medicine - CN: Reslt - Labs CBC & Chem 7: 12/18/20 08:29 12/18/20 08:29 Labs: Short CBC 12/18/20 Range/Units 08:29 WBC 10.0 (4.8-10.8) K/mm3 Hgb 12.0 L (14.1-18.0) g/dL Hct 36.2 L (42.0-52.0) % Plt Count 324 (142-424) K/mm3 BMP 12/17/20 12/18/20 18:55 08:29 Sodium 138 140 Potassium 3.7 3.6 Chloride 99 103 Carbon Dioxide 28 29 BUN 23 H 18 Creatinine 1.20 D 1.00 Glucose 169 H D 119 H D Calcium 8.0 L 8.0 L Liver Function 12/17/20 12/18/20 Range/Units 18:55 08:29 Total Bilirubin 2.5 H 2.1 H (0.2-1.3) mg/dl AST 65 H 69 H (17-59) U/L ALT 47 45 (12-78) U/L Alkaline Phosphatase 58 62 (38-126) U/L Albumin 3.7 3.4 L (3.5-5.0) g/dl Assessment and Plan (1) Acute hypoxemic respiratory failure due to COVID-19 Status: Acute Category: Medical Code(s): U07.1 - COVID-19; J96.01 - Acute respiratory failure with hypoxia - Assessment and plan all Dx
--- NOTE | 2020-12-18 10:50 | CA_ITS ---
APPROVED REPORT Bilateral Lower Extremity Venous Study for DVT. Pit Slagman: AUSTIN SzymanskiT Indications Shortness of breath Hypoxia,Covid Vein Imaging CFV (R): compressive, spontaneous, phasic, augmentation FEM (R): compressive, spontaneous, phasic, augmentation POP (R): compressive, spontaneous, phasic, augmentation PTV (R): Compressible GSV (R): Compressible Peroneals (R):Compressible GAS (R): Compressible CFV (L): compressive, spontaneous, phasic, augmentation FEM (L): compressive, spontaneous, phasic, augmentation POP (L): compressive, spontaneous, phasic, augmentation PTV (L): Compressible GSV (L): Compressible Peroneals (L):Compressible GAS (L): Compressible Findings Study suggests no evidence of DVT or SVT of the bilateral lower extremites. Conclusion Study suggests no evidence of DVT or SVT of the bilateral lower extremites. Electronically signed by : Jase Luciano MD 12/19/2020 18:49:39
[2020-12-18 11:54] LABS: D-Dimer 1.41 ug/mL (0.0-0.5)
[2020-12-18 12:37] LABS: C-Reactive Protein 122.3 mg/L (0-4)
[2020-12-18 13:53] LABS: Ferritin 1790 ng/ml (17.9-464)
--- NOTE | 2020-12-18 17:28 | PC.NURSE ---
Pt has been pleasant and cooperative this shift. A&O X4. No complaints of pain or SOA. Pt is currently receiving O2 via Vapotherm @ 35 LPM/70% O2 with sats. >90%. Lung sounds reveal crackles. No edema noted. Skin is C/D/I. Pt ambulates independently. Pt prones as tolerated. Pt uses the urinal to void clear, yellow urine without issue. No BM thus far this shift. Pt has slept intermittently this shift. Pt is tolerating a regular diet and eats the majority of all meals. 20 G peripheral IV in place to the RT forearm is patent and infusing NS @ 100 ML/HR. VSS. Call light within reach. Will continue to monitor.
[2020-12-19] VITALS (9 sets, daily range): BP systolic 101–132; BP diastolic 53–73; PULSE 61–82; RESP 18–21; TEMP 36.8–37.8; O2SAT 90–97; BMI 40.7
--- NOTE | 2020-12-19 06:01 | HMH.PULMPN ---
Internal Medicine - PN: Subj *Date: 12/19/20 *Time: 12:01 Interval history: No acute respiratory events overnight. Patient admits continued improvement in his symptoms. Exam - Constitutional Constitutional:: Present: no acute distress, comfortable - HENMT Exam HENMT: Present: normocephalic, atraumatic - Eye Exam Eyes:: Present: normal appearance both eyes and related structures - Neck Exam Neck:: Present: normal visual inspection - Respiratory Exam Respiratory:: Present: able to speak in complete sentences, respiratory distress, rales. Absent: crackles, wheezing - Cardiovascular Exam Cardiac:: Present: S1, S2 - GI Exam GI:: Present: soft - Skin Exam Skin: Present: warm, no rash - Neurological Exam Neurological: Present: alert, awake, normal cognition - Extremities Exam Extremities: Present: no cyanosis, no clubbing, no edema Assessment and Plan (1) Acute hypoxemic respiratory failure due to COVID-19 Status: Acute Category: Medical Code(s): U07.1 - COVID-19; J96.01 - Acute respiratory failure with hypoxia - Assessment and plan all Dx Assessment and Plan for all problems:: #Acute hypoxic respiratory failure: #COVID-19 pneumonia: Mr. Villatoro is a 45-year-old male never smoker no prior respiratory complaints, yet to be vaccinated worse when he was [employer] high risk occupation exposure denies any prior known exposure or COVID-19 symptoms presented to hospital with worsening respiratory distress for the last 4 days. CTA on admission did not show any evidence of pulmonary them however showed bilateral diffuse groundglass opacities. Renal function stable. Patient on admission was initiated on levofloxacin along with remdesivir dexamethasone for his COVID-19 pneumonia. D-dimer at 1.41, CRP elevated at 122 ferritin at 1790.. Patient respiratory status continued to improve, he was saturating 96% this morning while proned. Plan: -F/U LE venous doppler result -Continue proning protocol -Continue high flow nasal cannula oxygen supplementation with O2 saturation goal of 90% and above, wean aggressively as tolerated with O2 saturation goal of 88 to 92%. -Continue levofloxacin for total of 5 days, will obtain sputum cultures. -Continue remdesivir and dexamethasone x 10 days and Barcitinib x14 days. -Advair HFA 250 twice daily scheduled. -DuoNebs every 6 hours as needed. Thank you involving pulmonary in this patient care. We will continue to follow. .
[2020-12-19 07:45] LABS: Chloride 107 mmol/L (98-107)
[2020-12-19 07:46] LABS: Sodium 142 mmol/L (136-145)
[2020-12-19 07:48] LABS: Alanine Aminotransferase 50 U/L (12-78); Albumin Level 3.5 g/dl (3.5-5.0); Albumin/Globulin Ratio 1.3 (1.1-1.8); Alkaline Phosphatase 64 U/L (38-126); Aspartate Amino Transferase 76 U/L (17-59); Bilirubin,Total 2.1 mg/dl (0.2-1.3); Blood Urea Nitrogen 14 mg/dl (9-20); Carbon Dioxide 26 mmol/L (22.0-30.0); Creatinine Clearance Estimated 136 mL/min (50-200); Estimated Glomerular Filt Rate 121 ml/min (>60); GFR (African American) 147 ML/MIN (>60); Globulin 2.7 g/dL (1.3-3.2); Total Protein,Serum 6.2 g/dl (6.3-8.2)
[2020-12-19 07:49] LABS: Glucose 122 mg/dl (74-100)
--- NOTE | 2020-12-19 08:07 | HMH.ACPN2 ---
Internal Medicine - PN: Subj *Date: 12/19/20 *Time: 08:18 Interval history: Patient states he feels somewhat better today. Feels his breathing is better although he still short of breath with any movement. His cough is less and is sometimes productive. He voids QS and states his urine is dark. He does not feel much like eating but is drinking fluids well. His chest discomfort has much improved. Renal function has normalized. He is afebrile. UA he is now on Vapotherm at 70% with O2 sats ranging around 96%. Chest x-ray from yesterday revealed worsening bilateral airspace disease consistent with worsening COVID-19 pneumonia. Sputum cultures pending. Exam Vital signs and Labs for Last 24 Hours: Temp Pulse Resp BP Pulse Ox 98.8 F 82 20 132/68 96 12/19/20 04:15 12/19/20 06:26 12/19/20 04:15 12/19/20 04:15 12/19/20 06:26 Laboratory Results - last 24 hr 12/18/20 08:29: Sodium 140, Potassium 3.6, Chloride 103, Carbon Dioxide 29, Anion Gap 11.6, BUN 18, Creatinine 1.00, Estimated Creat Clear 95, Estimated GFR 80, Est GFR ( Amer) 97 D, Glucose 119 H D, Calcium 8.0 L, Total Bilirubin 2.1 H, AST 69 H, ALT 45, Alkaline Phosphatase 62, Total Protein 6.1 L, Albumin 3.4 L, Globulin 2.7, Albumin/Globulin Ratio 1.3 12/18/20 08:29: WBC 10.0, RBC 3.99 L, Hgb 12.0 L, Hct 36.2 L, MCV 90.5, MCH 30.0, MCHC 33.2, RDW 13.4, Plt Count 324, MPV 7.7, Neut % (Auto) 86.9 H, Lymph % (Auto) 10.2, Ness % (Auto) 2.6, Eos % (Auto) 0.1, Baso % (Auto) 0.3, Neut # (Auto) 8.7 H, Lymph # (Auto) 1.0, Ness # (Auto) 0.3, Eos # (Auto) 0.0, Baso # (Auto) 0.0, Total Counted 100, Neutrophils % (Manual) 90 H, Lymphocytes % (Manual) 9 L, Monocytes % (Manual) 1 L, Platelet Estimate Normal 12/18/20 11:23: D-Dimer 1.41 H 12/18/20 11:23: Ferritin 1790 H, C-Reactive Protein 122.3 H 12/19/20 06:34: Sodium 142, Potassium 4.0, Chloride 107, Carbon Dioxide 26, Anion Gap 13.0, BUN 14, Creatinine 0.70 D, Estimated Creat Clear 136, Estimated GFR 121, Est GFR ( Amer) 147 D, Glucose 122 H, Calcium 8.0 L, Total Bilirubin 2.1 H, AST 76 H, ALT 50, Alkaline Phosphatase 64, Total Protein 6.2 L, Albumin 3.5, Globulin 2.7, Albumin/Globulin Ratio 1.3 I & O for Last 24 hours: Intake & Output 12/16/20 12/17/20 12/18/20 12/19/20 11:59 11:59 11:59 11:59 Intake Total 840 / 840 3402 / 3402 Output Total 2800 / 2800 3150 / 3150 Balance -1960 / -1960 252 / 252 Weight 290 lb 290 lb Microbiology Reports for the Last 24 Hours: Microbiology 12/17/20 18:20 Sputum - Expectorated Sputum Gram Stain - Final - Constitutional no acute distress (Awakened for assessment. He appears to be improved. He has been lying prone.) - *Routine Respiratory Exam Present: crackles Comments: Few crackles but much improved from yesterday. Some decreased breath sounds on the right. - *Routine Cardiovascular Exam Present: RRR - *Routine Extremities Exam Present: pulses intact. Absent: edema, calf tenderness - *Routine Neurological Exam Present: alert, oriented X3 Assessment and Plan (1) Acute hypoxemic respiratory failure due to COVID-19 Status: Acute Category: Medical Code(s): U07.1 - COVID-19; J96.01 - Acute respiratory failure with hypoxia (2) Pneumonia due to COVID-19 virus Status: Acute Category: Medical Code(s): U07.1 - COVID-19; J12.82 - Pneumonia due to coronavirus disease 2019 - Assessment and plan all Dx Assessment and Plan for all problems:: Continue with current pulmonary care. Patient seen by pulmonary yesterday and is appreciated. He will continue to follow. Will saline lock IV since patient is drinking well and renal function has returned to normal.
--- NOTE | 2020-12-19 11:00 | PC.NURSE ---
Sacral wound cleaned with sterile water. Wound vac dressing changed and window dressing applied to sacral wound. Barrier film placed first, then foam imbedded into site. Wound vac set to 125. No further orders at this time.
[2020-12-20] VITALS (16 sets, daily range): BP systolic 99–130; BP diastolic 44–96; PULSE 54–91; RESP 16–30; TEMP 37–38.8; O2SAT 88–99; BMI 40.7
[2020-12-20 07:03] LABS: Chloride 103 mmol/L (98-107); Potassium 3.7 mmoL/L (3.5-5.1); Sodium 140 mmol/L (136-145)
[2020-12-20 07:06] LABS: Alanine Aminotransferase 43 U/L (12-78); Albumin Level 3.1 g/dl (3.5-5.0); Albumin/Globulin Ratio 1.3 (1.1-1.8); Alkaline Phosphatase 69 U/L (38-126); Anion Gap 12.7 mEq/L (5-15); Aspartate Amino Transferase 69 U/L (17-59); Bilirubin,Total 2.8 mg/dl (0.2-1.3); Blood Urea Nitrogen 15 mg/dl (9-20); Calcium 7.9 mg/dl (8.4-10.2); Carbon Dioxide 28 mmol/L (22.0-30.0); Creatinine Clearance Estimated 106 mL/min (50-200); Estimated Glomerular Filt Rate 91 ml/min (>60); GFR (African American) 110 ML/MIN (>60); Globulin 2.4 g/dL (1.3-3.2); Glucose 94 mg/dl (74-100); Total Protein,Serum 5.5 g/dl (6.3-8.2)
--- NOTE | 2020-12-20 08:51 | HMH.ACPN2 ---
Internal Medicine - PN: Subj *Date: 12/20/20 *Time: 08:51 Interval history: Patient states he is feeling a little bit better today. He still has shortness of breath with any exertion. He has been sleeping prone. He states he does have some back pain. He is drinking but does not feel like eating. Exam Vital signs and Labs for Last 24 Hours: Temp Pulse Resp BP Pulse Ox 100.3 F H 63 20 105/72 L 95 12/20/20 04:00 12/20/20 04:00 12/20/20 04:00 12/20/20 04:00 12/20/20 06:25 Laboratory Results - last 24 hr 12/20/20 06:17: Sodium 140, Potassium 3.7, Chloride 103, Carbon Dioxide 28, Anion Gap 12.7, BUN 15, Creatinine 0.90 D, Estimated Creat Clear 106, Estimated GFR 91, Est GFR ( Amer) 110 D, Glucose 94 D, Calcium 7.9 L, Total Bilirubin 2.8 H, AST 69 H, ALT 43, Alkaline Phosphatase 69, Total Protein 5.5 L, Albumin 3.1 L D, Globulin 2.4, Albumin/Globulin Ratio 1.3 I & O for Last 24 hours: Intake & Output 12/17/20 12/18/20 12/19/20 12/20/20 11:59 11:59 11:59 11:59 Intake Total 840 / 840 3702 / 3702 360 / 360 Output Total 2800 / 2800 3450 / 3450 1650 / 1650 Balance -1960 / -1960 252 / 252 -1290 / -1290 Weight 290 lb 290 lb 291 lb 0.163 oz 291 lb - Constitutional no acute distress - *Routine Respiratory Exam Present: decreased breath sounds - *Routine Cardiovascular Exam Present: RRR - *Routine Abdominal Exam Present: soft, normoactive bowel sounds. Absent: tenderness - *Routine Extremities Exam Absent: cyanosis, clubbing, edema - *Routine Skin Exam Present: warm. Absent: rash - *Routine Neurological Exam Present: alert, oriented X3 Assessment and Plan (1) Acute hypoxemic respiratory failure due to COVID-19 Status: Acute Category: Medical Code(s): U07.1 - COVID-19; J96.01 - Acute respiratory failure with hypoxia - Assessment and plan all Dx Assessment and Plan for all problems:: Pulmonology to continue to follow.
--- NOTE | 2020-12-20 09:15 | P.PN_ITS ---
Internal Medicine - PN: Subj *Date: 12/20/20 *Time: 11:33 Interval history: Patient denies any new respiratory complaints. Denies any improvement in his respiratory symptoms. Exam - Constitutional Constitutional:: Present: no acute distress, comfortable - HENMT Exam HENMT: Present: normocephalic, atraumatic - Eye Exam Eyes:: Present: normal appearance both eyes and related structures - Neck Exam Neck:: Present: normal visual inspection - Respiratory Exam Respiratory:: Present: respiratory distress, rales, wheezing. Absent: able to speak in complete sentences - Cardiovascular Exam Cardiac:: Present: S1, S2 - GI Exam GI:: Present: soft - Skin Exam Skin: Present: warm, no rash - Neurological Exam Neurological: Present: alert, awake, normal cognition - Extremities Exam Extremities: Present: no cyanosis, no clubbing, no edema Assessment and Plan (1) Acute hypoxemic respiratory failure due to COVID-19 Status: Acute Category: Medical Code(s): U07.1 - COVID-19; J96.01 - Acute respiratory failure with hypoxia - Assessment and plan all Dx Assessment and Plan for all problems:: #Acute hypoxic respiratory failure: #COVID-19 pneumonia: Mr. Villatoro is a 45-year-old male never smoker no prior respiratory complaints, yet to be vaccinated worse when he was [employer] high risk occupation exposure denies any prior known exposure or COVID-19 symptoms presented to hospital with worsening respiratory distress for the last 4 days. CTA on admission did not show any evidence of pulmonary them however showed bilateral diffuse groundglass opacities. Renal function stable. Patient on admission was initiated on levofloxacin along with remdesivir dexamethasone for his COVID-19 pneumonia. D-dimer at 1.41, CRP elevated at 122 ferritin at 1790. Lower extremity Doppler negative for DVT. Interval update: Patient respiratory status slightly worsened and critical since yesterday.He remains on 40 L 70% FiO2 with saturations at 90 to 93%. Continue to have low-grade fevers. No evidence of leukocytosis from labs from 12/18/2020. Renal function stable. Plan: -Continue proning protocol -Continue high flow nasal cannula oxygen supplementation with O2 saturation goal of 90% and above, wean aggressively as tolerated with O2 saturation goal of 88 to 92%. -Continue levofloxacin for total of 5 days, sputum from 12/18/2011 showing gram- negative rods. -Continue remdesivir and dexamethasone x 10 days and Barcitinib x14 days. -Discontinue Advair and initiate DuoNebs every 6 hours on a scheduled basis. Thank you involving pulmonary in this patient care. We will continue to follow.
--- NOTE | 2020-12-20 13:21 | PC.NURSE ---
Report called to Paris Cat RN. Pt moved to covid unit @ 1300.
[2020-12-21] VITALS (33 sets, daily range): BP systolic 103–152; BP diastolic 55–96; PULSE 60–119; RESP 12–33; TEMP 37–37.4; O2SAT 89–99
--- NOTE | 2020-12-21 03:10 | PC.NURSE ---
Pt remains on 30L 70% Vapotherm. Has been in prone position most of shift. VS currently stable. O2 sat is currently 96% at this time. Lungs noted to have scattered wheezing. Pt states he feels worse and thinks he is moving backwards. Has been cooperative with care and has remained in prone position most of night. Face has been flushed at times this shift. New IV placed in (R) hand #20. RFA DC due to pt stating it burned. Urine output is cloudy and lisha in color. Has not c/o pain. No other concerns. Will continue to monitor.
[2020-12-21 05:09] LABS: Alanine Aminotransferase 42 U/L (12-78); Albumin/Globulin Ratio 1.2 (1.1-1.8); Alkaline Phosphatase 53 U/L (38-126); Anion Gap 9.5 mEq/L (5-15); Aspartate Amino Transferase 57 U/L (17-59); Bilirubin,Total 2.6 mg/dl (0.2-1.3); Blood Urea Nitrogen 12 mg/dl (9-20); Calcium 8.1 mg/dl (8.4-10.2); Carbon Dioxide 27 mmol/L (22.0-30.0); Chloride 103 mmol/L (98-107); Creatinine Clearance Estimated 136 mL/min (50-200); Estimated Glomerular Filt Rate 121 ml/min (>60); GFR (African American) 147 ML/MIN (>60); Globulin 2.6 g/dL (1.3-3.2); Glucose 105 mg/dl (74-100); Potassium 3.5 mmoL/L (3.5-5.1); Sodium 136 mmol/L (136-145); Total Protein,Serum 5.6 g/dl (6.3-8.2)
--- NOTE | 2020-12-21 09:11 | HMH.ACPN2 ---
Internal Medicine - PN: Subj *Date: 12/21/20 *Time: 09:11 Interval history: Patient states he is feeling rough this morning. His back is hurting. He is trying to use his incentive spirometer. He states he had difficulty sleeping last night. He did actually eat this morning. Exam Vital signs and Labs for Last 24 Hours: Temp Pulse Resp BP Pulse Ox 98.8 F 81 20 137/74 93 L 12/21/20 08:00 12/21/20 08:00 12/21/20 08:00 12/21/20 08:00 12/21/20 08:50 Laboratory Results - last 24 hr 12/21/20 04:43: Sodium 136, Potassium 3.5, Chloride 103, Carbon Dioxide 27, Anion Gap 9.5, BUN 12, Creatinine 0.70 D, Estimated Creat Clear 136, Estimated GFR 121, Est GFR ( Amer) 147 D, Glucose 105 H, Calcium 8.1 L, Total Bilirubin 2.6 H, AST 57, ALT 42, Alkaline Phosphatase 53, Total Protein 5.6 L, Albumin 3.0 L, Globulin 2.6, Albumin/Globulin Ratio 1.2 I & O for Last 24 hours: Intake & Output 12/18/20 12/19/20 12/20/20 12/21/20 11:59 11:59 11:59 11:59 Intake Total 840 / 840 3702 / 3702 840 / 840 1601 / 1601 Output Total 2800 / 2800 3450 / 3450 1950 / 1950 1100 / 1100 Balance -1960 / -1960 252 / 252 -1110 / -1110 501 / 501 Weight 290 lb 291 lb 0.163 oz 291 lb Microbiology Reports for the Last 24 Hours: Microbiology 12/17/20 18:20 Sputum - Expectorated Sputum Gram Stain - Final 12/17/20 18:20 Sputum - Expectorated Sputum Sputum Culture - Preliminary - Constitutional no acute distress - *Routine Respiratory Exam Present: rales, wheezes - *Routine Cardiovascular Exam Present: RRR - *Routine Abdominal Exam Present: soft, normoactive bowel sounds. Absent: tenderness - *Routine Extremities Exam Absent: cyanosis, clubbing, edema - *Routine Skin Exam Present: warm. Absent: rash - *Routine Neurological Exam Present: alert, oriented X3 Assessment and Plan (1) Acute hypoxemic respiratory failure due to COVID-19 Status: Acute Category: Medical Code(s): U07.1 - COVID-19; J96.01 - Acute respiratory failure with hypoxia - Assessment and plan all Dx Assessment and Plan for all problems:: We will discuss further care with Dr. Smith. Pulmonology to follow.
--- NOTE | 2020-12-21 09:20 | XR_ITS ---
PROCEDURE: XR CHEST PORTABLE CLINICAL HISTORY: pneumonia COMPARISON: CR XR CHEST 2V from 12/11/[address] ANGIO CHEST PE PROTOCOL from 12/17/2020 CR XR CHEST PORTABLE from 12/17/2020 CR XR CHEST PORTABLE from 12/18/2020 FINDINGS: There is diffuse bilateral airspace disease consistent with bilateral pneumonia. This is not significantly changed. Mild cardiomegaly without failure. Bone plate is present along the lower cervical spine. No acute bony findings. IMPRESSION: No change diffuse bilateral pneumonia Dictated by: Jase Luciano MD 12/21/2020 11:14 Jase Luciano MD in [place] 12/21/2020 11:14
--- NOTE | 2020-12-21 09:22 | HMH.ACPN2 ---
Internal Medicine - PN: Subj *Date: 12/21/20 *Time: 09:22 Interval history: The patient was moved to ICU last evening. He is frustrated and finds the ICU more disruptive to his ability to rest and sleep. Exam Vital signs and Labs for Last 24 Hours: Temp Pulse Resp BP Pulse Ox 98.8 F 81 20 137/74 93 L 12/21/20 08:00 12/21/20 08:00 12/21/20 08:00 12/21/20 08:00 12/21/20 08:50 Laboratory Results - last 24 hr 12/21/20 04:43: Sodium 136, Potassium 3.5, Chloride 103, Carbon Dioxide 27, Anion Gap 9.5, BUN 12, Creatinine 0.70 D, Estimated Creat Clear 136, Estimated GFR 121, Est GFR ( Amer) 147 D, Glucose 105 H, Calcium 8.1 L, Total Bilirubin 2.6 H, AST 57, ALT 42, Alkaline Phosphatase 53, Total Protein 5.6 L, Albumin 3.0 L, Globulin 2.6, Albumin/Globulin Ratio 1.2 I & O for Last 24 hours: Intake & Output 12/18/20 12/19/20 12/20/20 12/21/20 11:59 11:59 11:59 11:59 Intake Total 840 / 840 3702 / 3702 840 / 840 1601 / 1601 Output Total 2800 / 2800 3450 / 3450 1950 / 1950 1100 / 1100 Balance -1960 / -1960 252 / 252 -1110 / -1110 501 / 501 Weight 290 lb 291 lb 0.163 oz 291 lb Microbiology Reports for the Last 24 Hours: Microbiology 12/17/20 18:20 Sputum - Expectorated Sputum Gram Stain - Final 12/17/20 18:20 Sputum - Expectorated Sputum Sputum Culture - Preliminary - Constitutional no acute distress (Prone and on Vapotherm. Sats 89-91 percent) - *Routine HEENT Exam Head: Present: normocephalic Eye: Present: EOMI, PERRL ENT: Present: mucous membranes moist - *Routine Neck Exam Present: supple. Absent: lymphadenopathy - *Routine Respiratory Exam Present: decreased breath sounds (But moving air) - *Routine Abdominal Exam Present: soft, normoactive bowel sounds. Absent: tenderness - *Routine Extremities Exam Absent: cyanosis, clubbing, edema - *Routine Skin Exam Present: warm. Absent: rash - *Routine Neurological Exam Present: alert, oriented X3 Assessment and Plan (1) Acute hypoxemic respiratory failure due to COVID-19 Status: Acute Category: Medical Code(s): U07.1 - COVID-19; J96.01 - Acute respiratory failure with hypoxia - Assessment and plan all Dx Assessment and Plan for all problems:: Recheck chest x-ray. Continue present regimen.
--- NOTE | 2020-12-21 11:52 | P.PN_ITS ---
Internal Medicine - PN: Subj *Date: 12/21/20 *Time: 11:52 Interval history: No acute respiratory events overnight. Patient complains of significant inconvenience with his new room secondary to the continuous noise coming from the negative pressure apparatus Exam - Constitutional Constitutional:: Present: no acute distress. Absent: comfortable - HENMT Exam HENMT: Present: normocephalic, atraumatic - Eye Exam Eyes:: Present: normal appearance both eyes and related structures - Neck Exam Neck:: Present: normal visual inspection - Respiratory Exam Respiratory:: Present: able to speak in complete sentences, respiratory distress, rales - Cardiovascular Exam Cardiac:: Present: S1, S2 - GI Exam GI:: Present: soft - Skin Exam Skin: Present: warm, no rash - Neurological Exam Neurological: Present: alert, awake, normal cognition - Extremities Exam Extremities: Present: no cyanosis, no clubbing, no edema Assessment and Plan (1) Acute hypoxemic respiratory failure due to COVID-19 Status: Acute Category: Medical Code(s): U07.1 - COVID-19; J96.01 - Acute respiratory failure with hypoxia - Assessment and plan all Dx Assessment and Plan for all problems:: #Acute hypoxic respiratory failure: #COVID-19 pneumonia: Mr. Villatoro is a 45-year-old male never smoker no prior respiratory complaints, yet to be vaccinated worse when he was [employer] high risk occupation exposure denies any prior known exposure or COVID-19 symptoms presented to hospital with worsening respiratory distress for the last 4 days. CTA on admission did not show any evidence of pulmonary them however showed bilateral diffuse groundglass opacities. Renal function stable. D-dimer at 1.41, CRP elevated at 122 ferritin at 1790. Lower extremity Doppler negative for DVT. Interval update: Patient respiratory remained relatively stable from yesterday. He remains on 40 L 70% FiO2. Patient saturating 94% and above while proning however he is having significant desaturations to less than 88% with exertion or moving around. We will closely monitor his respiratory status. Patient also receiving maintenance fluids 100 cc/h. Adequate urine output net negative volume status. We will closely monitor. Plan: -Continue proning protocol -Continue high flow nasal cannula oxygen supplementation with O2 saturation goal of 90% and above -Continue levofloxacin for total of 7 days, sputum from 12/18/2011 showing gram- negative rods. -Continue remdesivir and dexamethasone x 10 days and Barcitinib x14 days. -Discontinue Advair and initiate DuoNebs every 6 hours on a scheduled basis. Thank you involving pulmonary in this patient care. We will continue to follow.
--- NOTE | 2020-12-21 15:51 | DIET.NUTRFU ---
Addendum entered by Roseanne Kidd 12/28/20 16:31: PO intakes 50-75% + BID supplements. Weight stable, loss documented in previous note incorrect. Bowels moving. Addendum entered by Roseanne Kidd 12/26/20 14:55: PO intakes 50-75% + BID supplements. Weight documented to be down 24# past 24h. Addendum entered by Roseanne Kidd 12/24/20 16:27: PO intakes 50% + BID supplements, weight stable, bowels normal. Original Note: PO intakes 25%, nutritional supplements increased to BID. Weight stable.
--- NOTE | 2020-12-21 18:01 | PC.NURSE ---
Pt is alert and oriented x4. Lungs with rhonchi and are diminished throughout. He is on 10L high flow NC w/O2 sats in the mid 90's. He's been NSR on telemetry. He utilizes a urinal at the bedside. Appetite has been been poor with pt eating < 25% of meals. PO fluid intake is adequate. Pt has had no complaints this shift.
[2020-12-22] VITALS (21 sets, daily range): BP systolic 106–143; BP diastolic 48–82; PULSE 50–87; RESP 18–32; TEMP 36.5–37.2; O2SAT 91–99; BMI 36.7
--- NOTE | 2020-12-22 00:51 | PC.NURSE ---
He is a&Ox4. He has ambulated to the bathroom. He dneies pain. He rpeors that he had a BM on 12/21/20. He continues on 10Liters high flow ooxygen. He has laid prone. NSR on telemetry.
[2020-12-22 06:08] LABS: Chloride 104 mmol/L (98-107)
[2020-12-22 06:09] LABS: Potassium 3.6 mmoL/L (3.5-5.1); Sodium 141 mmol/L (136-145)
[2020-12-22 06:11] LABS: Alanine Aminotransferase 64 U/L (12-78); Albumin Level 2.9 g/dl (3.5-5.0); Albumin/Globulin Ratio 1.1 (1.1-1.8); Alkaline Phosphatase 62 U/L (38-126); Anion Gap 11.6 mEq/L (5-15); Aspartate Amino Transferase 70 U/L (17-59); Bilirubin,Total 1.9 mg/dl (0.2-1.3); Blood Urea Nitrogen 10 mg/dl (9-20); Carbon Dioxide 29 mmol/L (22.0-30.0); Creatinine Clearance Estimated 222 mL/min (50-200); Estimated Glomerular Filt Rate 121 ml/min (>60); GFR (African American) 147 ML/MIN (>60); Globulin 2.7 g/dL (1.3-3.2); Total Protein,Serum 5.6 g/dl (6.3-8.2)
[2020-12-22 06:12] LABS: Calcium 8.2 mg/dl (8.4-10.2); Glucose 130 mg/dl (74-100)
--- NOTE | 2020-12-22 08:37 | HMH.ACPN2 ---
Internal Medicine - PN: Subj *Date: 12/22/20 *Time: 08:54 Interval history: Patient feels better today. Nurses report O2 sats are good at rest but decline when patient is up moving around. Exam Vital signs and Labs for Last 24 Hours: Temp Pulse Resp BP Pulse Ox 97.9 F 67 22 119/55 L 95 12/22/20 08:00 12/22/20 08:00 12/22/20 08:00 12/22/20 08:00 12/22/20 08:00 Laboratory Results - last 24 hr 12/22/20 05:06: Sodium 141, Potassium 3.6, Chloride 104, Carbon Dioxide 29, Anion Gap 11.6, BUN 10, Creatinine 0.70, Estimated Creat Clear 222, Estimated GFR 121, Est GFR ( Amer) 147, Glucose 130 H, Calcium 8.2 L, Total Bilirubin 1.9 H, AST 70 H, ALT 64 D, Alkaline Phosphatase 62, Total Protein 5.6 L, Albumin 2.9 L, Globulin 2.7, Albumin/Globulin Ratio 1.1 Vital Signs - 24 hr 12/21/20 08:50 12/21/20 09:00 12/21/20 10:00 Temperature Pulse Rate Pulse Rate [Apical] 69 82 Respiratory Rate Blood Pressure [Right Arm] 137/74 120/71 02 Sat by Pulse Oximetry 93 L 97 89 L 12/21/20 11:00 12/21/20 11:58 12/21/20 12:00 Temperature Pulse Rate 97 H 100 H Pulse Rate [Apical] 73 93 H Respiratory Rate 22 21 Blood Pressure [Right Arm] 124/78 124/65 02 Sat by Pulse Oximetry 94 L 92 L 90 L 12/21/20 13:00 12/21/20 14:00 12/21/20 15:00 Temperature Pulse Rate Pulse Rate [Apical] 85 101 H 66 Respiratory Rate 25 H 23 33 H Blood Pressure [Right Arm] 103/55 L 109/70 L 113/66 02 Sat by Pulse Oximetry 92 L 95 96 12/21/20 16:00 12/21/20 17:00 12/21/20 18:00 Temperature Pulse Rate 70 Pulse Rate [Apical] 70 68 66 Respiratory Rate 24 32 H 30 H Blood Pressure [Right Arm] 106/65 L 122/75 131/68 02 Sat by Pulse Oximetry 92 L 93 L 94 L 12/21/20 18:47 12/21/20 18:50 12/21/20 19:30 Temperature 99.0 F Pulse Rate 111 H Pulse Rate [Apical] 63 70 Respiratory Rate 28 H 24 Blood Pressure [Right Arm] 118/69 123/96 H 02 Sat by Pulse Oximetry 90 L 95 91 L 12/21/20 20:00 12/21/20 20:48 12/21/20 22:00 Temperature 98.6 F 98.9 F Pulse Rate 65 Pulse Rate [Apical] 63 60 Respiratory Rate 24 26 H 12 Blood Pressure [Right Arm] 113/64 126/70 02 Sat by Pulse Oximetry 94 L 93 L 97 12/21/20 22:43 12/21/20 22:54 12/21/20 23:53 Temperature 98.6 F Pulse Rate 60 Pulse Rate [Apical] 65 Respiratory Rate 16 32 H Blood Pressure [Right Arm] 114/69 02 Sat by Pulse Oximetry 94 L 95 12/21/20 23:58 12/22/20 00:00 12/22/20 00:54 Temperature 98.4 F 98.2 F Pulse Rate 61 Pulse Rate [Apical] 60 61 Respiratory Rate 25 H 21 Blood Pressure [Right Arm] 112/65 116/70 02 Sat by Pulse Oximetry 95 96 97 12/22/20 01:56 12/22/20 02:56 12/22/20 03:59 Temperature 98.2 F 98.2 F 97.7 F Pulse Rate 50 L Pulse Rate [Apical] 56 L 55 L 55 L Respiratory Rate 22 20 21 Blood Pressure [Right Arm] 117/74 122/71 122/82 02 Sat by Pulse Oximetry 94 L 95 93 L 12/22/20 04:00 12/22/20 05:00 12/22/20 06:00 Temperature 97.7 F 98.2 F Pulse Rate Pulse Rate [Apical] 60 77 Respiratory Rate 21 22 18 Blood Pressure [Right Arm] 130/60 113/79 02 Sat by Pulse Oximetry 96 97 95 12/22/20 06:37 12/22/20 06:39 12/22/20 08:00 Temperature 98.2 F 97.9 F Pulse Rate 58 L 70 Pulse Rate [Apical] 60 67 Respiratory Rate 21 22 Blood Pressure [Right Arm] 113/79 119/55 L 02 Sat by Pulse Oximetry 97 99 95 I & O for Last 24 hours: Intake & Output 12/19/20 12/20/20 12/21/20 12/22/20 23:59 23:59 23:59 23:59 Intake Total 780 / 780 480 / 1561 3343 / 3343 1018 / 1018 Output Total 2650 / 3600 1250 / 1900 4150 / 4150 2500 / 2500 Balance -1870 / -2820 -770 / -339 -807 / -807 -1482 / -1482 Weight 291 lb 0.163 oz 291 lb 262 lb 4.8 oz Microbiology Reports for the Last 24 Hours: Microbiology 12/17/20 18:20 Sputum - Expectorated Sputum Gram Stain - Final 12/17/20 18:20 Sputum - Expectorated Sputum Sputum Culture - Preliminary Arcanobacterium haemolyti
[2020-12-23] VITALS (19 sets, daily range): BP systolic 121–155; BP diastolic 59–99; PULSE 50–88; RESP 21–28; TEMP 36.8–36.9; O2SAT 91–96; BMI 39.1
--- NOTE | 2020-12-23 04:04 | PC.NURSE ---
patient has rested well most of the night with no adverse events, ambulates up to bathroom on o2 with some soa noted and sats drop to low 80's, attempted to wean o2 down to 4-5L unsuccessfully, pt dropped sats to 82-83 and maintained at this level and was increased back to 6L pnc with 02 sats at 94%. pt with positive BM this shift.
[2020-12-23 06:31] LABS: Chloride 103 mmol/L (98-107); Sodium 140 mmol/L (136-145)
[2020-12-23 06:32] LABS: Potassium 3.6 mmoL/L (3.5-5.1)
[2020-12-23 06:34] LABS: Alanine Aminotransferase 97 U/L (12-78); Albumin/Globulin Ratio 1.2 (1.1-1.8); Alkaline Phosphatase 68 U/L (38-126); Anion Gap 11.6 mEq/L (5-15); Aspartate Amino Transferase 66 U/L (17-59); Bilirubin,Total 1.2 mg/dl (0.2-1.3); Blood Urea Nitrogen 10 mg/dl (9-20); Carbon Dioxide 29 mmol/L (22.0-30.0); Creatinine Clearance Estimated 277 mL/min (50-200); Estimated Glomerular Filt Rate 145 ml/min (>60); GFR (African American) 176 ML/MIN (>60); Globulin 2.6 g/dL (1.3-3.2); Total Protein,Serum 5.6 g/dl (6.3-8.2)
[2020-12-23 06:35] LABS: Basophils # 0.1 K/mm3 (0-0.2); Basophils % 0.5 % (0.1-2.0); Calcium 8.4 mg/dl (8.4-10.2); Eosinophils # 0.1 K/mm3 (0.0-0.4); Eosinophils % 0.5 % (0.1-12.0); Glucose 145 mg/dl (74-100); Hematocrit 35.1 % (42.0-52.0); Hemoglobin 11.2 g/dL (14.1-18.0); Lymphocytes # 1.3 K/mm3 (0.7-4.5); Lymphocytes % 11.6 % (10-50); Mean Corpuscular Hemoglobin 29.5 pg (27.0-31.2); Mean Corpuscular Volume 92.4 fl (80-94); Monocytes # 0.4 K/mm3 (0.1-1.0); Monocytes % 3.3 % (1.7-9.3); Neutrophils # 9.3 K/mm3 (1.8-7.8); Platelet Count 467 K/mm3 (142-424); Red Cell Distribution Width 14.1 % (11.5-17.5); White Blood Count 11.1 K/mm3 (4.8-10.8)
--- NOTE | 2020-12-23 09:51 | P.PN_ITS ---
Internal Medicine - PN: Subj *Date: 12/23/20 *Time: 09:51 Exam Vital signs and Labs for Last 24 Hours: Temp Pulse Resp BP Pulse Ox 98.2 F 68 23 136/76 93 L 12/23/20 08:00 12/23/20 08:00 12/23/20 08:00 12/23/20 08:00 12/23/20 08:00 Laboratory Results - last 24 hr 12/23/20 05:19: Sodium 140, Potassium 3.6, Chloride 103, Carbon Dioxide 29, Anion Gap 11.6, BUN 10, Creatinine 0.60 L, Estimated Creat Clear 277, Estimated GFR 145, Est GFR ( Amer) 176, Glucose 145 H, Calcium 8.4, Total Bilirubin 1.2, AST 66 H, ALT 97 H D, Alkaline Phosphatase 68, Total Protein 5.6 L, Albumin 3.0 L, Globulin 2.6, Albumin/Globulin Ratio 1.2 12/23/20 05:19: WBC 11.1 H, RBC 3.80 L, Hgb 11.2 L, Hct 35.1 L, MCV 92.4, MCH 29.5, MCHC 32.0, RDW 14.1, Plt Count 467 H, MPV 8.0, Neut % (Auto) 84.0 H, Lymph % (Auto) 11.6, [place] % (Auto) 3.3, Eos % (Auto) 0.5, Baso % (Auto) 0.5, Neut # (Auto) 9.3 H, Lymph # (Auto) 1.3, [place] # (Auto) 0.4, Eos # (Auto) 0.1, Baso # (Auto) 0.1 I & O for Last 24 hours: Intake & Output 12/20/20 12/21/20 12/22/20 12/23/20 23:59 23:59 23:59 23:59 Intake Total 480 / 1561 3343 / 3343 3092 / 3092 1321 / 1321 Output Total 1250 / 1900 4150 / 4150 4600 / 5300 2700 / 2700 Balance -770 / -339 -807 / -807 -1508 / -2208 -1379 / -1379 Weight 131.995 kg 118.977 kg 127.139 kg Microbiology Reports for the Last 24 Hours: Microbiology 12/17/20 18:20 Sputum - Expectorated Sputum Gram Stain - Final 12/17/20 18:20 Sputum - Expectorated Sputum Sputum Culture - Final Arcanobacterium haemolyticum Assessment and Plan (1) Pneumonia due to COVID-19 virus Status: Acute Category: Medical Code(s): U07.1 - COVID-19; J12.82 - Pneumonia due to coronavirus disease 2019 (2) Acute hypoxemic respiratory failure due to COVID-19 Status: Acute Category: Medical Code(s): U07.1 - COVID-19; J96.01 - Acute respiratory failure with hypoxia (3) HTN (hypertension) Status: Acute Category: Medical Code(s): I10 - Essential (primary) hypertension The patient's infection will respond to the chosen ABx?: Yes Is the patient receiving the right drug, dose, and route?: Yes Could a more targeted ABx be ordered?: No
--- NOTE | 2020-12-23 13:31 | HMH.ACPN2 ---
Internal Medicine - PN: Subj *Date: 12/23/20 *Time: 13:31 Interval history: He shows significant improvement. Sitting up, eating lunch. Appetite improved, he reports. On nasal O2 but requiring 6 to 8 liters. Hypoxic with any exertion. Bowels, renal function good. Exam Vital signs and Labs for Last 24 Hours: Temp Pulse Resp BP Pulse Ox 98.3 F 84 23 133/95 H 92 L 12/23/20 12:00 12/23/20 12:47 12/23/20 12:00 12/23/20 12:00 12/23/20 12:47 Laboratory Results - last 24 hr 12/23/20 05:19: Sodium 140, Potassium 3.6, Chloride 103, Carbon Dioxide 29, Anion Gap 11.6, BUN 10, Creatinine 0.60 L, Estimated Creat Clear 277, Estimated GFR 145, Est GFR ( Amer) 176, Glucose 145 H, Calcium 8.4, Total Bilirubin 1.2, AST 66 H, ALT 97 H D, Alkaline Phosphatase 68, Total Protein 5.6 L, Albumin 3.0 L, Globulin 2.6, Albumin/Globulin Ratio 1.2 12/23/20 05:19: WBC 11.1 H, RBC 3.80 L, Hgb 11.2 L, Hct 35.1 L, MCV 92.4, MCH 29.5, MCHC 32.0, RDW 14.1, Plt Count 467 H, MPV 8.0, Neut % (Auto) 84.0 H, Lymph % (Auto) 11.6, [place] % (Auto) 3.3, Eos % (Auto) 0.5, Baso % (Auto) 0.5, Neut # (Auto) 9.3 H, Lymph # (Auto) 1.3, [place] # (Auto) 0.4, Eos # (Auto) 0.1, Baso # (Auto) 0.1 I & O for Last 24 hours: Intake & Output 12/21/20 12/22/20 12/23/20 12/24/20 11:59 11:59 11:59 11:59 Intake Total 1800 2680 / 2680 3275 / 3275 Output Total 1400 / 1550 5250 / 5250 5450 / 5450 Balance 401 / 451 -2570 / -2570 -2175 / -2175 Weight 262 lb 4.8 oz 280 lb 4.709 oz Microbiology Reports for the Last 24 Hours: Microbiology 12/17/20 18:20 Sputum - Expectorated Sputum Gram Stain - Final 12/17/20 18:20 Sputum - Expectorated Sputum Sputum Culture - Final Arcanobacterium haemolyticum - *Routine HEENT Exam Head: Present: normocephalic Eye: Present: EOMI, PERRL ENT: Present: mucous membranes moist - *Routine Neck Exam Present: supple. Absent: lymphadenopathy - *Routine Respiratory Exam Present: decreased breath sounds, rales (some bibasilar.) - *Routine Cardiovascular Exam Present: RRR - *Routine Abdominal Exam Present: soft, normoactive bowel sounds. Absent: tenderness - *Routine Extremities Exam Absent: cyanosis, clubbing, edema Assessment and Plan (1) Pneumonia due to COVID-19 virus Status: Acute Category: Medical Code(s): U07.1 - COVID-19; J12.82 - Pneumonia due to coronavirus disease 2019 (2) Acute hypoxemic respiratory failure due to COVID-19 Status: Acute Category: Medical Code(s): U07.1 - COVID-19; J96.01 - Acute respiratory failure with hypoxia (3) HTN (hypertension) Status: Acute Category: Medical Code(s): I10 - Essential (primary) hypertension - Assessment and plan all Dx Assessment and Plan for all problems:: Slow progress. Continue present care. Pulmonary follow-up in AM.
[2020-12-24] VITALS (18 sets, daily range): BP systolic 110–159; BP diastolic 62–98; PULSE 50–95; RESP 16–25; TEMP 36.8–36.9; O2SAT 87–95; BMI 39.2
--- NOTE | 2020-12-24 00:09 | PC.NURSE ---
He is A&Ox4. He denies pain. Reports his last BM was on 12/23/20. He has been voiding per urinal. Urine is yellow, clear. Denies SOA at rest. Reports some SOA with exertion but states it has improved. Intermittent cough. He is afebrile. Has been NSR and sinus perlita on telemetry.
[2020-12-24 07:17] LABS: Chloride 101 mmol/L (98-107); Potassium 4.2 mmoL/L (3.5-5.1); Sodium 141 mmol/L (136-145)
[2020-12-24 07:19] LABS: Alanine Aminotransferase 92 U/L (12-78); Aspartate Amino Transferase 50 U/L (17-59); Blood Urea Nitrogen 10 mg/dl (9-20); Creatinine Clearance Estimated 237 mL/min (50-200); Estimated Glomerular Filt Rate 121 ml/min (>60); GFR (African American) 147 ML/MIN (>60)
[2020-12-24 07:20] LABS: Albumin Level 2.9 g/dl (3.5-5.0); Albumin/Globulin Ratio 1.3 (1.1-1.8); Alkaline Phosphatase 63 U/L (38-126); Anion Gap 10.2 mEq/L (5-15); Bilirubin,Total 1.7 mg/dl (0.2-1.3); Calcium 8.6 mg/dl (8.4-10.2); Carbon Dioxide 34 mmol/L (22.0-30.0); Globulin 2.3 g/dL (1.3-3.2); Glucose 87 mg/dl (74-100); Total Protein,Serum 5.2 g/dl (6.3-8.2)
--- NOTE | 2020-12-24 08:57 | HMH.ACPN2 ---
Internal Medicine - PN: Subj *Date: 12/24/20 *Time: 08:57 Interval history: Pt is resting quietly in bed without complaint. He feels his breathing is better and reports less SOBOE. He is eating well and voiding qshift. His bowels moved yesterday. Still requiring O2 at 6lpm to maintain sats >90%. Exam Vital signs and Labs for Last 24 Hours: Temp Pulse Resp BP Pulse Ox 98.4 F 62 20 157/79 H 95 12/24/20 06:00 12/24/20 08:00 12/24/20 08:00 12/24/20 08:00 12/24/20 08:00 Laboratory Results - last 24 hr 12/24/20 05:40: Sodium 141, Potassium 4.2, Chloride 101, Carbon Dioxide 34 H, Anion Gap 10.2, BUN 10, Creatinine 0.70, Estimated Creat Clear 237, Estimated GFR 121, Est GFR ( Amer) 147, Glucose 87, Calcium 8.6, Total Bilirubin 1.7 H, AST 50, ALT 92 H, Alkaline Phosphatase 63, Total Protein 5.2 L, Albumin 2.9 L, Globulin 2.3, Albumin/Globulin Ratio 1.3 I & O for Last 24 hours: Intake & Output 12/21/20 12/22/20 12/23/20 12/24/20 11:59 11:59 11:59 11:59 Intake Total 1800 / 2000 2680 / 2680 3515 / 3515 3280 / 3280 Output Total 1400 / 1550 5250 / 5250 5450 / 5450 3800 / 3800 Balance 401 / 451 -2570 / -2570 -1935 / -1935 -520 / -520 Weight 262 lb 4.8 oz 280 lb 4.709 oz 280 lb - Constitutional no acute distress - *Routine HEENT Exam Head: Present: normocephalic ENT: Present: mucous membranes moist - *Routine Respiratory Exam Absent: respiratory distress, wheezes Comments: fine rales to RLL and left mid and lower lung gotti - *Routine Cardiovascular Exam Present: RRR - *Routine Abdominal Exam Present: soft, normoactive bowel sounds, obese. Absent: tenderness, distended, guarding, firm, rigid - *Routine Extremities Exam Present: full ROM, pulses intact. Absent: edema, calf tenderness - *Routine Neurological Exam Present: alert, oriented X3, moving all extremities, normal speech Assessment and Plan (1) Pneumonia due to COVID-19 virus Status: Acute Category: Medical Code(s): U07.1 - COVID-19; J12.82 - Pneumonia due to coronavirus disease 2019 (2) Acute hypoxemic respiratory failure due to COVID-19 Status: Acute Category: Medical Code(s): U07.1 - COVID-19; J96.01 - Acute respiratory failure with hypoxia (3) HTN (hypertension) Status: Acute Category: Medical Code(s): I10 - Essential (primary) hypertension - Assessment and plan all Dx Assessment and Plan for all problems:: Continue current care. Pulmonology to see patient today.
--- NOTE | 2020-12-24 09:13 | XR_ITS ---
PROCEDURE: XR CHEST PORTABLE CLINICAL HISTORY: covid 19 COMPARISON: CT CT ANGIO CHEST PE PROTOCOL from 12/17/2020 CR XR CHEST PORTABLE from 12/17/2020 CR XR CHEST PORTABLE from 12/18/2020 CR XR CHEST PORTABLE from 12/21/2020 FINDINGS: The diffuse bilateral ill-defined pneumonic infiltrates are again seen with no improvement and in fact there may be slightly more diffuse involvement of the right upper lobe when compared to the most recent study. The costophrenic angles remain clear with no evidence of pleural fluid. There is stable borderline cardiomegaly. IMPRESSION: Prominent diffuse ill-defined opacities involving both lung gotti showing slight interval progression from the most recent study and nose consistent with Covid19 pneumonia Dictated by: Dr. Jani Bullard MD 12/25/2020 11:19 Dr. Jani Bullard MD in [facility] 12/25/2020 11:19
--- NOTE | 2020-12-24 10:34 | P.PN_ITS ---
Internal Medicine - PN: Subj *Date: 12/24/20 *Time: 10:37 Interval history: No acute respiratory events over the weekend. He denied any new complaints, express his wishes to go home Exam - Constitutional Constitutional:: Present: no acute distress, comfortable - HENMT Exam HENMT: Present: normocephalic, atraumatic - Eye Exam Eyes:: Present: normal appearance both eyes and related structures - Neck Exam Neck:: Present: normal visual inspection - Respiratory Exam Respiratory:: Present: able to speak in complete sentences, no respiratory distress, crackles, rales - Cardiovascular Exam Cardiac:: Present: S1, S2 - GI Exam GI:: Present: soft, no hepatosplenomegaly - Skin Exam Skin: Present: warm, no rash - Neurological Exam Neurological: Present: alert, awake, normal cognition - Extremities Exam Extremities: Present: no cyanosis, no clubbing, no edema Assessment and Plan (1) Pneumonia due to COVID-19 virus Status: Acute Category: Medical Code(s): U07.1 - COVID-19; J12.82 - Pneumonia due to coronavirus disease 2019 (2) Acute hypoxemic respiratory failure due to COVID-19 Status: Acute Category: Medical Code(s): U07.1 - COVID-19; J96.01 - Acute respiratory failure with hypoxia (3) HTN (hypertension) Status: Acute Category: Medical Code(s): I10 - Essential (primary) hypertension - Assessment and plan all Dx Assessment and Plan for all problems:: #Acute hypoxic respiratory failure: #COVID-19 pneumonia: Mr. Villatoro is a 45-year-old male never smoker no prior respiratory complaints, yet to be vaccinated worse when he was [employer] high risk occupation exposure denies any prior known exposure or COVID-19 symptoms presented to hospital with worsening respiratory distress for the last 4 days. CTA on admission did not show any evidence of pulmonary them however showed bilateral diffuse groundglass opacities. Renal function stable. D-dimer at 1.41, CRP elevated at 122 ferritin at 1790. Lower extremity Doppler negative for DVT. Interval update: Resp status significantly improved over the weekend, weaned ot NC today on 6L saturating 88 to 90%. admits desaturations to <88% with exertion. Bibasilar crackles eard. No wheezing heward Plan: - Lasix 40mg IV once -Continue proning protocol -Continue nasal cannula oxygen supplementation with O2 saturation goal of 90% and above, wean sa tolerated -Continue levofloxacin for total of 7 days, sputum from 12/18/2011 showing gram- negative rods - Start date:12/18/2020 -Continue remdesivir and dexamethasone x 10 days and Barcitinib x14 days. -Discontinue Advair on a scheduled basis. -DuoNebs every 6 hours PRN Thank you involving pulmonary in this patient care. We will continue to follow.
--- NOTE | 2020-12-24 17:31 | PC.NURSE ---
Patient has been Sinus perlita to NSR on the monitor. Patient is on 6L NC. Up ad-soren. Patient has been up to the bathroom and uses urinal. Sats drop to low to mid 80's when patient is up, takes about 5 minutes for oxygen levels to recover. Patient had complaints of a headache, see MAR. Plan of care is to continue to wean oxygen. Bed in lowest position and phone and call light in reach.
[2020-12-25] VITALS (19 sets, daily range): BP systolic 102–147; BP diastolic 51–85; PULSE 60–111; RESP 17–24; TEMP 36.4–37.6; O2SAT 86–97; BMI 38.8
--- NOTE | 2020-12-25 03:39 | PC.NURSE ---
No acute changes this shift. Pt has not voiced any complaints. He has remained on 5L O2 NC with O2 sats low 90s with periods of desaturation in upper 80s, especially with exertion. Lungs are diminished in bases. BS active. Last BM 12/24. VSS at this time. Pt NSR on telemetry. He has had 680 ml urine output thus far. Urine is lisha and cloudy. No other concerns. Will continue to monitor.
--- NOTE | 2020-12-25 05:25 | PC.NURSE ---
Pt c/o soa this AM after exertion from using the restroom. Pt O2 sats declined as low as 76% briefly. O2 was titrated to 6 L.
[2020-12-25 06:55] LABS: Chloride 100 mmol/L (98-107); Sodium 141 mmol/L (136-145)
[2020-12-25 06:58] LABS: Alanine Aminotransferase 98 U/L (12-78); Albumin Level 3.4 g/dl (3.5-5.0); Albumin/Globulin Ratio 1.3 (1.1-1.8); Alkaline Phosphatase 70 U/L (38-126); Aspartate Amino Transferase 59 U/L (17-59); Bilirubin,Total 2.1 mg/dl (0.2-1.3); Blood Urea Nitrogen 14 mg/dl (9-20); Carbon Dioxide 33 mmol/L (22.0-30.0); Creatinine Clearance Estimated 182 mL/min (50-200); Estimated Glomerular Filt Rate 91 ml/min (>60); GFR (African American) 110 ML/MIN (>60); Globulin 2.7 g/dL (1.3-3.2); Total Protein,Serum 6.1 g/dl (6.3-8.2)
[2020-12-25 06:59] LABS: Calcium 8.9 mg/dl (8.4-10.2); Glucose 82 mg/dl (74-100)
--- NOTE | 2020-12-25 08:38 | HMH.ACPN2 ---
Internal Medicine - PN: Subj *Date: 12/25/20 *Time: 08:54 Interval history: Patient states he will probably never go home. He is joking but seems very depressed. He still gets short of breath with exertion. He has periodic cough. He is eating better. He is voiding QS. He denies pain. He has been out of bed. Nursing states he desats when up in the 70s. He remains on O2 at 6 L/min. Liver function studies show an ALT of 98 with a bilirubin of 2.1. Renal function is normal. Electrolytes are satisfactory. Exam Vital signs and Labs for Last 24 Hours: Temp Pulse Resp BP Pulse Ox 99.4 F 87 20 107/66 L 86 L 12/25/20 07:29 12/25/20 08:00 12/25/20 07:29 12/25/20 07:29 12/25/20 07:29 Laboratory Results - last 24 hr 12/25/20 06:20: Sodium 141, Potassium 4.0, Chloride 100, Carbon Dioxide 33 H, Anion Gap 12.0, BUN 14 D, Creatinine 0.90 D, Estimated Creat Clear 182, Estimated GFR 91, Est GFR ( Amer) 110 D, Glucose 82, Calcium 8.9, Total Bilirubin 2.1 H, AST 59, ALT 98 H, Alkaline Phosphatase 70, Total Protein 6.1 L, Albumin 3.4 L D, Globulin 2.7, Albumin/Globulin Ratio 1.3 I & O for Last 24 hours: Intake & Output 12/22/20 12/23/20 12/24/20 12/25/20 11:59 11:59 11:59 11:59 Intake Total 2680 / 2680 3515 / 3515 3280 / 3280 480 / 480 Output Total 5250 / 5250 5450 / 5450 3800 / 3800 1880 / 1880 Balance -2570 / -2570 -1935 / -1935 -520 / -520 -1400 / -1400 Weight 262 lb 4.8 oz 280 lb 4.709 oz 280 lb 277 lb 4 oz - Constitutional no acute distress - *Routine Respiratory Exam Present: crackles (Right base) - *Routine Cardiovascular Exam Present: RRR (Monitor showing sinus rhythm) - *Routine Abdominal Exam Present: soft, normoactive bowel sounds. Absent: tenderness, distended - *Routine Extremities Exam Present: pulses intact. Absent: edema, calf tenderness - *Routine Neurological Exam Present: alert, oriented X3 - Routine Psychiatric Exam Present: depressed Assessment and Plan (1) Pneumonia due to COVID-19 virus Status: Acute Category: Medical Code(s): U07.1 - COVID-19; J12.82 - Pneumonia due to coronavirus disease 2019 (2) Acute hypoxemic respiratory failure due to COVID-19 Status: Acute Category: Medical Code(s): U07.1 - COVID-19; J96.01 - Acute respiratory failure with hypoxia (3) HTN (hypertension) Status: Acute Category: Medical Code(s): I10 - Essential (primary) hypertension (4) Depression Status: Acute Category: Medical Code(s): F32.A - Depression, unspecified - Assessment and plan all Dx Assessment and Plan for all problems:: We will move patient out of the corner in ICU to a regular room on the medical floor. Hopefully this will help his depression. Will discuss with Dr. Smith.
--- NOTE | 2020-12-25 11:54 | PC.NURSE ---
RESP CARE NOTE: Pt desats on 12 lpm nc. Pt placed on vapotherm at 40lpm/100% FIO2. SPO2 being continuously monitored per telemetry.
--- NOTE | 2020-12-25 11:57 | CT_ITS ---
PROCEDURE: CT ANGIO CHEST PE PROTOCOL CLINCIAL INDICATION: COVID Shortness of breath diffusely prominent bilateral ill-defined opacities on chest film 12/24/2020 COMPARISON: Portable upright chest 12/24/2020 TECHNIQUE: IV Contrast: 70ML Isovue 370 Axial images obtained with sagittal and coronal reformats. All CT scans at the facility use one or more dose reduction, viz: automated exposure control, ma/kV adjustment per patient size (including targeted exams where dose is matched to indication, i.e. head), or iterative reconstruction technique. FINDINGS: HEART AND MEDIASTINAL STRUCTURES: There is excellent vascular opacification. The main pulmonary artery segmental branches and subsegmental branches are well opacified and I see no definite pulmonary emboli. LUNGS AND PLEURAL SPACES: There are diffuse prominent pneumonic infiltrates primarily in a peripheral distribution involving both lungs with relative sparing of the apical segment right upper lobe. There is no pleural fluid. 2 BONY STRUCTURES: No acute bony abnormalities apparent. UPPER ABDOMEN: 2 small hypodense lesions right lobe of the liver likely hepatic cysts. ADDITIONAL FINDINGS: No other significant abnormalities. IMPRESSION: There is no CT evidence of pulmonary emboli, markedly prominent diffuse bilateral pneumonic infiltrates certainly consistent with Cobvid 19 pneumonia Dictated by: Dr. Jani Bullard MD 12/25/2020 14:56 Dr. Jani Bullard MD in [facility] 12/25/2020 14:56
--- NOTE | 2020-12-25 11:57 | CA_ITS ---
APPROVED REPORT Bilateral Lower Extremity Venous Study for DVT. Atmospheric Scientist: Winnie Lang RVT Indications Shortness of breath Hypoxia,COVID Vein Imaging CFV (R): compressive, spontaneous, phasic, augmentation FEM (R): compressive, spontaneous, phasic, augmentation POP (R): compressive, spontaneous, phasic, augmentation PTV (R): Compressible GSV (R): Compressible Peroneals (R):Compressible GAS (R): Compressible CFV (L): compressive, spontaneous, phasic, augmentation FEM (L): compressive, spontaneous, phasic, augmentation POP (L): compressive, spontaneous, phasic, augmentation PTV (L): Compressible GSV (L): Compressible Peroneals (L):Compressible GAS (L): Compressible Findings Study suggests no evidence of DVT or SVT of the bilateral lower extremites. Conclusion Study suggests no evidence of DVT or SVT of the bilateral lower extremites. Electronically signed by : Fransisca Sierra MD 12/25/2020 16:50:30
[2020-12-25 12:45] LABS: Basophils # 0.1 K/mm3 (0-0.2); Basophils % 0.9 % (0.1-2.0); Eosinophils # 0.2 K/mm3 (0.0-0.4); Eosinophils % 1.7 % (0.1-12.0); Hematocrit 39.8 % (42.0-52.0); Hemoglobin 13.5 g/dL (14.1-18.0); Lymphocytes # 1.2 K/mm3 (0.7-4.5); Mean Corpuscular HGB Conc 33.9 g/dL (31.8-35.4); Mean Corpuscular Hemoglobin 30.7 pg (27.0-31.2); Mean Corpuscular Volume 90.3 fl (80-94); Mean Platelet Volume 8.7 fl (7.4-10.4); Monocytes # 0.5 K/mm3 (0.1-1.0); Monocytes % 3.9 % (1.7-9.3); Neutrophils # 11.7 K/mm3 (1.8-7.8); Neutrophils % 84.5 % (37.0-80.0); Platelet Count 468 K/mm3 (142-424); Red Cell Distribution Width 14.2 % (11.5-17.5); White Blood Count 13.8 K/mm3 (4.8-10.8)
--- NOTE | 2020-12-25 12:52 | P.PN_ITS ---
Internal Medicine - PN: Subj *Date: 12/25/20 *Time: 12:52 Interval history: Patient admit significantly worsening respiratory distress from yesterday. Exam - Constitutional Constitutional:: Present: comfortable - HENMT Exam HENMT: Present: normocephalic, atraumatic - Eye Exam Eyes:: Present: normal appearance both eyes and related structures - Neck Exam Neck:: Present: normal visual inspection - Respiratory Exam Respiratory:: Present: respiratory distress, crackles, rales, wheezing - Cardiovascular Exam Cardiac:: Present: S1, S2 - GI Exam GI:: Present: soft - Skin Exam Skin: Present: warm, no rash - Neurological Exam Neurological: Present: alert, awake, normal cognition - Extremities Exam Extremities: Present: no cyanosis, no clubbing, no edema Assessment and Plan (1) Pneumonia due to COVID-19 virus Status: Acute Category: Medical Code(s): U07.1 - COVID-19; J12.82 - Pneumonia due to coronavirus disease 2019 (2) Acute hypoxemic respiratory failure due to COVID-19 Status: Acute Category: Medical Code(s): U07.1 - COVID-19; J96.01 - Acute respiratory failure with hypoxia (3) HTN (hypertension) Status: Acute Category: Medical Code(s): I10 - Essential (primary) hyper tension (4) Depression Status: Acute Category: Medical Code(s): F32.A - Depression, unspecified - Assessment and plan all Dx Assessment and Plan for all problems:: #Acute hypoxic respiratory failure: #COVID-19 pneumonia: Mr. Villatoro is a 45-year-old male never smoker no prior respiratory complaints, yet to be vaccinated worse when he was [employer] high risk occupation exposure denies any prior known exposure or COVID-19 symptoms presented to hospital with worsening respiratory distress for the last 4 days. CTA on admission did not show any evidence of pulmonary them however showed bilateral diffuse groundglass opacities. Renal function stable. D-dimer at 1.41, CRP elevated at 122 ferritin at 1790. Lower extremity Doppler negative for DVT. Interval update: Patient respiratory status significantly worsened from yesterday but he this morning on 10 L nasal cannula saturating 84%. Admits worsening chest congestion and cough with productive phlegm. He continued to receive levofloxacin, started on ceftriaxone by primary team today. Plan: -Escalate O2 supplementation to high flow nasal cannula to maintain O2 saturation goal of 88% and above. -We'll proceed with CT PE and bilateral lower extremity DVT. -Repeat sputum cultures -Continue proning protocol -Continue remdesivir and dexamethasone x 10 days and Barcitinib x14 days. -Continue Advair on a scheduled basis. -Xopinex every 6 hours PRN Thank you involving pulmonary in this patient care. We will continue to follow.
--- NOTE | 2020-12-25 13:22 | HMH.ITSTN ---
nurse states IV is more in the hand and new access is going to be attempted to support high flow bolus of contrast
[2020-12-25 13:41] LABS: Basophils # 0.1 K/mm3 (0-0.2); Basophils % 0.8 % (0.1-2.0); Eosinophils # 0.2 K/mm3 (0.0-0.4); Eosinophils % 1.5 % (0.1-12.0); Hematocrit 40.4 % (42.0-52.0); Hemoglobin 13.5 g/dL (14.1-18.0); Lymphocytes # 1.4 K/mm3 (0.7-4.5); Lymphocytes % 9.5 % (10-50); Mean Corpuscular HGB Conc 33.4 g/dL (31.8-35.4); Mean Corpuscular Volume 89.9 fl (80-94); Mean Platelet Volume 8.7 fl (7.4-10.4); Monocytes # 0.5 K/mm3 (0.1-1.0); Monocytes % 3.2 % (1.7-9.3); Neutrophils # 12.2 K/mm3 (1.8-7.8); Neutrophils % 85.1 % (37.0-80.0); Platelet Count 502 K/mm3 (142-424); Red Blood Count 4.49 M/mm3 (4.60-6.20); Red Cell Distribution Width 14.2 % (11.5-17.5); White Blood Count 14.3 K/mm3 (4.8-10.8)
[2020-12-25 13:47] LABS: MANUAL DIFFERENTIAL MANUAL DIFFERENTIAL (MANUAL DIFF)
[2020-12-25 14:19] LABS: Eosinophils % 1 % (0-3); Lymphocytes % 6 % (10-50); Monocytes % 3 % (2-9); Neutrophils % 90 % (42-76); Total Cells Counted 100
[2020-12-25 14:20] LABS: Hypochromasia 1+; Platelet Estimate Normal
--- NOTE | 2020-12-25 18:29 | PC.NURSE ---
Patient has had increased SOA this am and oxygen saturations decreased to 82-84% on 10LNC, Patient was placed on vapotherm per MD order, patient reports his SOA is currently improved and O2 saturations 92-94%, chest CTA and venous doppler BLE completed this shift, remains alert and oriented x4, HR reg, NSR on telemetry, no edema noted, denies any CP, abd soft and nontender, active bowel sounds in all quads, appetite fair, voids per urinal at bedside, urine yellow and clear, BM this shift, peripheral pulses 2+, vss, will continue to monitor.
[2020-12-26] VITALS (10 sets, daily range): BP systolic 121–152; BP diastolic 45–91; PULSE 60–100; RESP 16–18; TEMP 36.7–36.9; O2SAT 94–97; BMI 351106.4
--- NOTE | 2020-12-26 04:19 | PC.NURSE ---
no acute changes over night. pt has rested majority of this shift. pt has proned as tolerated. a&ox4.continues on vapotherm 40lpm 80%fio2. O2 has remained in the mid to high 90s this shift. O2 slightly decreases with exacerbation but recovers well. NSR on tele. uses the urinal at bedside independently. good urine output noted. no c/o pain or discomfort voiced. resting prone position at this time. call light within reach.
[2020-12-26 06:17] LABS: Basophils # 0.1 K/mm3 (0-0.2); Basophils % 0.8 % (0.1-2.0); Eosinophils # 0.2 K/mm3 (0.0-0.4); Eosinophils % 1.5 % (0.1-12.0); Hematocrit 38.9 % (42.0-52.0); Hemoglobin 12.8 g/dL (14.1-18.0); Lymphocytes # 0.6 K/mm3 (0.7-4.5); Lymphocytes % 5.2 % (10-50); Mean Corpuscular Hemoglobin 29.8 pg (27.0-31.2); Mean Corpuscular Volume 90.2 fl (80-94); Mean Platelet Volume 8.4 fl (7.4-10.4); Monocytes # 0.6 K/mm3 (0.1-1.0); Monocytes % 4.7 % (1.7-9.3); Neutrophils # 10.2 K/mm3 (1.8-7.8); Neutrophils % 87.8 % (37.0-80.0); Platelet Count 449 K/mm3 (142-424); Red Blood Count 4.31 M/mm3 (4.60-6.20); Red Cell Distribution Width 14.3 % (11.5-17.5); White Blood Count 11.7 K/mm3 (4.8-10.8)
[2020-12-26 06:36] LABS: Chloride 101 mmol/L (98-107)
[2020-12-26 06:37] LABS: Potassium 4.4 mmoL/L (3.5-5.1); Sodium 137 mmol/L (136-145)
[2020-12-26 06:39] LABS: Alanine Aminotransferase 91 U/L (12-78); Aspartate Amino Transferase 59 U/L (17-59); Bilirubin,Total 2.2 mg/dl (0.2-1.3); Blood Urea Nitrogen 16 mg/dl (9-20); Creatinine Clearance Estimated 213 mL/min (50-200); Estimated Glomerular Filt Rate 121 ml/min (>60); GFR (African American) 147 ML/MIN (>60)
[2020-12-26 06:40] LABS: Albumin Level 3.3 g/dl (3.5-5.0); Albumin/Globulin Ratio 1.1 (1.1-1.8); Alkaline Phosphatase 67 U/L (38-126); Anion Gap 11.4 mEq/L (5-15); Calcium 8.9 mg/dl (8.4-10.2); Carbon Dioxide 29 mmol/L (22.0-30.0); Globulin 3.1 g/dL (1.3-3.2); Glucose 105 mg/dl (74-100); Total Protein,Serum 6.4 g/dl (6.3-8.2)
[2020-12-26 07:27] LABS: MANUAL DIFFERENTIAL MANUAL DIFFERENTIAL (MANUAL DIFF)
[2020-12-26 07:42] LABS: Lymphocytes % 6 % (10-50); Macrocytosis 1+; Monocytes % 6 % (2-9); Neutrophils % 88 % (42-76); Platelet Estimate Normal; Total Cells Counted 100
--- NOTE | 2020-12-26 07:59 | HMH.ACPN2 ---
Internal Medicine - PN: Subj *Date: 12/26/20 *Time: 07:59 Interval history: Patient remains very depressed. He states he has been here for 10 days and cannot breathe any better. He states he is going to . States he cannot do anything as stand at the bedside to void or move without being very short of breath. He denies chest pain and he is eating. His bowels did move yesterday and he is voiding QS. Nurses report that after up to the bathroom for a BM yesterday he had an acute exacerbation was unable to recover O2 sats. He was replaced back on Vapotherm after which she did better.. Sats remained stable after this. He remains in a sinus rhythm.He remains on Vapotherm at 80%. Excellent urinary output with?? 16 pound weight loss. Lab work this morning shows a decrease in his white blood cell count to 11,700 with a hemoglobin of 12.8 hematocrit of 38.9. Electrolytes are normal. Liver function studies remain stable. To note Rocephin was added to his antibiotic medication regime. Patient was also started on hydrochlorothiazide. CTA of the chest 12/25/2020 revealed the following: IMPRESSION: There is no CT evidence of pulmonary emboli, markedly prominent diffuse bilateral pneumonic infiltrates certainly consistent with Cobvid 19 pneumonia Venous Doppler studies of bilateral lower extremities on 12/25/2020 with the following results: Conclusion Study suggests no evidence of DVT or SVT of the bilateral lower extremites. Exam Vital signs and Labs for Last 24 Hours: Temp Pulse Resp BP Pulse Ox 98.3 F 73 18 152/91 H 95 12/26/20 04:00 12/26/20 04:00 12/26/20 04:00 12/26/20 04:00 12/26/20 04:00 Laboratory Results - last 24 hr 12/25/20 06:20: C-Reactive Protein 31.0 H 12/25/20 12:34: WBC 13.8 H, RBC 4.40 L, Hgb 13.5 L, Hct 39.8 L, MCV 90.3, MCH 30.7, MCHC 33.9, RDW 14.2, Plt Count 468 H, MPV 8.7, Neut % (Auto) 84.5 H, Lymph % (Auto) 9.0 L, [place] % (Auto) 3.9, Eos % (Auto) 1.7, Baso % (Auto) 0.9, Neut # (Auto) 11.7 H, Lymph # (Auto) 1.2, [place] # (Auto) 0.5, Eos # (Auto) 0.2, Baso # (Auto) 0.1 12/25/20 12:34: WBC 14.3 H, RBC 4.49 L, Hgb 13.5 L, Hct 40.4 L, MCV 89.9, MCH 30.0, MCHC 33.4, RDW 14.2, Plt Count 502 H, MPV 8.7, Neut % (Auto) 85.1 H, Lymph % (Auto) 9.5 L, [place] % (Auto) 3.2, Eos % (Auto) 1.5, Baso % (Auto) 0.8, Neut # (Auto) 12.2 H, Lymph # (Auto) 1.4, [place] # (Auto) 0.5, Eos # (Auto) 0.2, Baso # (Auto) 0.1, Total Counted 100, Neutrophils % (Manual) 90 H, Lymphocytes % (Manual) 6 L, Monocytes % (Manual) 3, Eosinophils % (Manual) 1, Platelet Estimate Normal, Hypochromasia 1+ 12/26/20 06:00: Sodium 137, Potassium 4.4, Chloride 101, Carbon Dioxide 29, Anion Gap 11.4, BUN 16, Creatinine 0.70 D, Estimated Creat Clear 213, Estimated GFR 121, Est GFR ( Amer) 147 D, Glucose 105 H D, Calcium 8.9, Total Bilirubin 2.2 H, AST 59, ALT 91 H, Alkaline Phosphatase 67, Total Protein 6.4, Albumin 3.3 L, Globulin 3.1, Albumin/Globulin Ratio 1.1 12/26/20 06:00: WBC 11.7 H, RBC 4.31 L, Hgb 12.8 L, Hct 38.9 L, MCV 90.2, MCH 29.8, MCHC 33.0, RDW 14.3, Plt Count 449 H, MPV 8.4, Neut % (Auto) 87.8 H, Lymph % (Auto) 5.2 L, [place] % (Auto) 4.7, Eos % (Auto) 1.5, Baso % (Auto) 0.8, Neut # (Auto) 10.2 H, Lymph # (Auto) 0.6 L, [place] # (Auto) 0.6, Eos # (Auto) 0.2, Baso # (Auto) 0.1, Total Counted 100, Neutrophils % (Manual) 88 H, Lymphocytes % (Manual) 6 L, Monocytes % (Manual) 6, Platelet Estimate Normal, Macrocytosis 1+ I & O for Last 24 hours: Intake & Output 12/23/20 12/24/20 12/25/20 12/26/20 11:59 11:59 11:59 11:59 Intake Total 3515 / 3515 3280 / 3280 480 / 480 1180 / 1180 Output Total 5450 / 5450 3800 / 3800 2405 / 2405 2775 / 2775 Balance -1935 / -1935 -520 / -520 -1925 / -1925 -1595 / -1595 Weight 280 lb 4.709 oz 280 lb 277 lb 4 oz 251 lb 12.286 oz - Constitutional no acute distress Comments: Depressed - *Routine Respiratory Exam Present: crackles (Bilateral basilar) - *Routine Cardiovascular Exam Present: RRR (
--- NOTE | 2020-12-26 11:34 | HMH.PULMPN ---
Internal Medicine - PN: Subj *Date: 12/26/20 *Time: 11:34 Interval history: Patient respiratory status declined yesterday and needing high flow nasal oxygen supplementation. Remained stable after that. He admits improvement in his symptoms. No new respiratory complaints. Exam - Constitutional Constitutional:: Present: no acute distress, comfortable - HENMT Exam HENMT: Present: normocephalic, atraumatic - Eye Exam Eyes:: Present: normal appearance both eyes and related structures - Neck Exam Neck:: Present: normal visual inspection - Respiratory Exam Respiratory:: Present: able to speak in complete sentences, respiratory distress, rales - Cardiovascular Exam Cardiac:: Present: S1, S2 - GI Exam GI:: Present: soft, no hepatosplenomegaly - Skin Exam Skin: Present: warm, no rash - Neurological Exam Neurological: Present: alert, awake, normal cognition - Extremities Exam Extremities: Present: no cyanosis, no clubbing, no edema Assessment and Plan (1) Pneumonia due to COVID-19 virus Status: Acute Category: Medical Code(s): U07.1 - COVID-19; J12.82 - Pneumonia due to coronavirus disease 2019 (2) Acute hypoxemic respiratory failure due to COVID-19 Status: Acute Category: Medical Code(s): U07.1 - COVID-19; J96.01 - Acute respiratory failure with hypoxia (3) HTN (hypertension) Status: Acute Category: Medical Code(s): I10 - Essential (primary) hypertension (4) Depression Status: Acute Category: Medical Code(s): F32.A - Depression, unspecified - Assessment and plan all Dx Assessment and Plan for all problems:: #Acute hypoxic respiratory failure: #COVID-19 pneumonia: Mr. Villatoro is a 45-year-old male never smoker no prior respiratory complaints, yet to be vaccinated worse when he was [employer] high risk occupation exposure denies any prior known exposure or COVID-19 symptoms presented to hospital with worsening respiratory distress for the last 4 days. CTA on admission did not show any evidence of pulmonary them however showed bilateral diffuse groundglass opacities. Renal function stable. D-dimer at 1.41, CRP elevated at 122 ferritin at 1790. Lower extremity Doppler negative for DVT. Interval update: Patient respiratory status declined yesterday needing high flow nasal oxygen supplementation, he currently on 30 L 100%. CTA and lower extremity Doppler from yesterday did not show any acute pulmonary embolism/DVT however showed worsening patchy airspace disease with no new areas involved. Afebrile. No significant worsening leukocytosis. Plan: -Continue high flow nasal cannula oxygen supplementation, wean as tolerated -Repeat sputum cultures. Complete levofloxacin for total of 7 days. Follow with nasal MRSA PCR. -Continue proning protocol -Continue remdesivir and dexamethasone x 10 days and Barcitinib x14 days. -Continue Advair on a scheduled basis. -Xopinex every 6 hours PRN Thank you involving pulmonary in this patient care. We will continue to follow.
--- NOTE | 2020-12-26 17:16 | PC.NURSE ---
Patient remains on vapotherm at 40L/100% at this time, O2 saturations 92-97%, reports SOA with exertion, lung sounds diminished t/o, HR reg, NSR on telemetry, abd soft and nontender with active bowel sounds in all quads, appetite fair, voids per urinal, urine yellow and clear, last BM 12/25, no peripheral edema noted, peripheral pulses 2+, denies any CP, vss.
[2020-12-27] VITALS (9 sets, daily range): BP systolic 117–128; BP diastolic 58–73; PULSE 59–97; RESP 14–23; TEMP 36.7–37; O2SAT 89–98; BMI 38.5
--- NOTE | 2020-12-27 05:11 | PC.NURSE ---
pt rested most of the night, complained of feeling anxious at times, o2 sats remain 95-97 percent on vapotherm 40/80, v/s remain stable, NSR and perlita at times.
[2020-12-27 06:17] LABS: Chloride 99 mmol/L (98-107); Potassium 4.6 mmoL/L (3.5-5.1); Sodium 136 mmol/L (136-145)
[2020-12-27 06:19] LABS: Alanine Aminotransferase 96 U/L (12-78); Aspartate Amino Transferase 46 U/L (17-59); Blood Urea Nitrogen 15 mg/dl (9-20); Creatinine Clearance Estimated 204 mL/min (50-200); Estimated Glomerular Filt Rate 104 ml/min (>60); GFR (African American) 126 ML/MIN (>60)
[2020-12-27 06:20] LABS: Albumin Level 3.3 g/dl (3.5-5.0); Albumin/Globulin Ratio 1.3 (1.1-1.8); Alkaline Phosphatase 69 U/L (38-126); Anion Gap 10.6 mEq/L (5-15); Bilirubin,Total 1.6 mg/dl (0.2-1.3); Calcium 8.6 mg/dl (8.4-10.2); Carbon Dioxide 31 mmol/L (22.0-30.0); Globulin 2.6 g/dL (1.3-3.2); Glucose 105 mg/dl (74-100); Total Protein,Serum 5.9 g/dl (6.3-8.2)
--- NOTE | 2020-12-27 06:27 | XR_ITS ---
PROCEDURE: XR CHEST PORTABLE CLINICAL HISTORY: pneumonia COMPARISON: CR XR CHEST PORTABLE from 12/18/2020 CR XR CHEST PORTABLE from 12/21/2020 CR XR CHEST PORTABLE from 12/24/[address] ANGIO CHEST PE PROTOCOL from 12/25/2020 FINDINGS: This is a fairly good inspiration. Again noted are prominent diffuse bilateral ill-defined opacities consistent with Covid19 pneumonia. There does appear to be slight interval improvement in aeration right mid lower lung field. Also there has been slight improvement in the right upper lobe. There is no pleural fluid. IMPRESSION: Prominent bilateral diffuse airspace disease consistent with Coban 19 pneumonia but showing slight interval improvement right lung when compared to the left Dictated by: Dr. Jani Bullard MD 12/28/2020 12:21 Dr. Jani Bullard MD in [facility] 12/28/2020 12:21
--- NOTE | 2020-12-27 06:46 | PC.NURSE ---
RESP CARE NOTE: SPO2 at 98% on 40L/80% FIO2. Vapo therm decreased to 35L/70% will monitor SPO2 to keep SPO2 above 90%.
--- NOTE | 2020-12-27 08:40 | P.PN_ITS ---
Internal Medicine - PN: Subj *Date: 12/27/20 *Time: 08:40 Interval history: Stable. Vapotherm has been decreased to 35L/70% and he maintains Sats above 90% unless he exerts at all. CXR this AM is not worse, perhaps a bit improved. Still has decent air movement. Exam Vital signs and Labs for Last 24 Hours: Temp Pulse Resp BP Pulse Ox 98.1 F 62 16 121/73 98 12/27/20 03:50 12/27/20 06:44 12/27/20 03:50 12/27/20 03:50 12/27/20 06:44 Laboratory Results - last 24 hr 12/27/20 05:33: Sodium 136, Potassium 4.6, Chloride 99, Carbon Dioxide 31 H, Anion Gap 10.6, BUN 15, Creatinine 0.80, Estimated Creat Clear 204, Estimated GFR 104, Est GFR ( Amer) 126, Glucose 105 H, Calcium 8.6, Total Bilirubin 1.6 H, AST 46, ALT 96 H, Alkaline Phosphatase 69, Total Protein 5.9 L, Albumin 3.3 L, Globulin 2.6, Albumin/Globulin Ratio 1.3 I & O for Last 24 hours: Intake & Output 12/24/20 12/25/20 12/26/20 12/27/20 11:59 11:59 11:59 11:59 Intake Total 3280 / 3280 480 / 480 1420 / 1420 3255 / 3255 Output Total 3800 / 3800 2405 / 2405 2775 / 2775 4100 / 4100 Balance -520 / -520 -1925 / -1925 -1355 / -1355 -845 / -845 Weight 280 lb 277 lb 4 oz 251 lb 12.286 oz 275 lb 4.339 oz - Constitutional no acute distress - *Routine HEENT Exam Head: Present: normocephalic Eye: Present: PERRL ENT: Present: mucous membranes moist - *Routine Neck Exam Present: supple. Absent: lymphadenopathy - *Routine Respiratory Exam Present: decreased breath sounds - *Routine Abdominal Exam Present: soft, normoactive bowel sounds. Absent: tenderness - *Routine Extremities Exam Absent: cyanosis, clubbing, edema (no edema appreciated. Note weights.) - Routine Psychiatric Exam Present: depressed (refuses Sertraline.) Assessment and Plan (1) Pneumonia due to COVID-19 virus Status: Acute Category: Medical Code(s): U07.1 - COVID-19; J12.82 - Pneumoni a due to coronavirus disease 2019 (2) Acute hypoxemic respiratory failure due to COVID-19 Status: Acute Category: Medical Code(s): U07.1 - COVID-19; J96.01 - Acute respiratory failure with hypoxia (3) HTN (hypertension) Status: Acute Category: Medical Code(s): I10 - Essential (primary) hypertension (4) Depression Status: Acute Category: Medical Code(s): F32.A - Depression, unspecified - Assessment and plan all Dx Assessment and Plan for all problems:: Continue present care.
--- NOTE | 2020-12-27 09:35 | PC.NURSE ---
RESP CARE NOTE: SPO2 at 96% on 35lpm/70% decreased settings to 30lpm/70% Vapotherm.
--- NOTE | 2020-12-27 10:42 | PC.NURSE ---
RESP CARE NOTE: Pt SPO2 at 93% 25L/50% FIO2. Settings decreased to 25L/40% FIO2, will monitor SPO2 to maintain 88% or greater.
--- NOTE | 2020-12-27 13:01 | HMH.PULMPN ---
Internal Medicine - PN: Subj *Date: 12/27/20 *Time: 13:01 Interval history: No acute respiratory events overnight. Patient admits continued improvement in symptoms. Exam - Constitutional Constitutional:: Present: no acute distress, comfortable - HENMT Exam HENMT: Present: normocephalic, atraumatic - Eye Exam Eyes:: Present: normal appearance both eyes and related structures - Neck Exam Neck:: Present: normal visual inspection - Respiratory Exam Respiratory:: Present: able to speak in complete sentences, respiratory distress, rales - Cardiovascular Exam Cardiac:: Present: S1, S2 - GI Exam GI:: Present: soft - Skin Exam Skin: Present: warm, no rash - Neurological Exam Neurological: Present: alert, awake, normal cognition - Extremities Exam Extremities: Present: no cyanosis, no clubbing Assessment and Plan (1) Pneumonia due to COVID-19 virus Status: Acute Category: Medical Code(s): U07.1 - COVID-19; J12.82 - Pneumonia due to coronavirus disease 2019 (2) Acute hypoxemic respiratory failure due to COVID-19 Status: Acute Category: Medical Code(s): U07.1 - COVID-19; J96.01 - Acute respiratory failure with hypoxia (3) HTN (hypertension) Status: Acute Category: Medical Code(s): I10 - Essential (primary) hypertension (4) Depression Status: Acute Category: Medical Code(s): F32.A - Depression, unspecified - Assessment and plan all Dx Assessment and Plan for all problems:: #Acute hypoxic respiratory failure: #COVID-19 pneumonia: Mr. Villatoro is a 45-year-old male never smoker no prior respiratory complaints, yet to be vaccinated worse when he was [employer] high risk occupation exposure denies any prior known exposure or COVID-19 symptoms presented to hospital with worsening respiratory distress for the last 4 days. CTA on admission did not show any evidence of pulmonary them however showed bilateral diffuse groundglass opacities. Renal function stable. D-dimer at 1.41, CRP elevated at 122 ferritin at 1790. Lower extremity Doppler negative for DVT. Repeat CTA and lower extremity Doppler from 12/25/20 did not show any acute pulmonary embolism/DVT however showed worsening patchy airspace disease with no new areas involved. He completed 7 days of levofloxacin. Interval update: Patient respiratory significantly improved from yesterday. FiO2 decreased to 30 L 50% this morning saturations maintained at 90% and above. We will continue to wean as tolerated. Plan: -Continue high flow nasal cannula oxygen supplementation, wean as tolerated -Repeat sputum cultures. follow with nasal MRSA PCR. -Continue proning protocol -Continue remdesivir and dexamethasone x 10 days (day 9/10) and Barcitinib x14 days. -Continue Advair on a scheduled basis. -Xopinex every 6 hours PRN Thank you involving pulmonary in this patient care. We will continue to follow.
--- NOTE | 2020-12-27 14:11 | PC.NURSE ---
RESP CARE NOTE: Pt placed on 10 lpm high flow nasal cannula. Pt has non rebreather at bedside for exertional maneuvers at bedside. SPO2 remains above 90%.
--- NOTE | 2020-12-27 18:29 | PC.NURSE ---
shift note: pt has done well this shift. Is A&O and pleasant. Has been OOB to bathroom and is able to ambulate around his room. Gave himself a bedbath. O2 has been weaned to 10L HFNC. O2 sat in mid 90s when laying in bed. Will desat to high 80s with any exertion. Has a dry hacky cough. Unable to produce sputum specimen. NSR on tele. Normotensive. Afebrile. No edema. Uses urinal. Great UOP. Had BM today. Appetite is good. Ate more than 50% of all meals.
[2020-12-28] VITALS (16 sets, daily range): BP systolic 110–147; BP diastolic 65–80; PULSE 60–90; RESP 18–22; TEMP 36.5–36.8; O2SAT 88–93; BMI 39.0
--- NOTE | 2020-12-28 05:08 | PC.NURSE ---
pt slept most of the night, refused pm dose of zoloft related to side effects from previous dose, pt tolerates up to bedside without complaints of SOA, however sats noted to drop to 86-88 upon ambulation to bedside. pt remains on 02 at 10L PNC.
--- NOTE | 2020-12-28 08:33 | HMH.ACPN2 ---
Internal Medicine - PN: Subj *Date: 12/28/20 *Time: 08:33 Exam Vital signs and Labs for Last 24 Hours: Temp Pulse Resp BP Pulse Ox 97.7 F 69 18 127/71 92 L 12/28/20 07:42 12/28/20 07:42 12/28/20 07:42 12/28/20 07:42 12/28/20 07:45 I & O for Last 24 hours: Intake & Output 12/25/20 12/26/20 12/27/20 12/28/20 23:59 23:59 23:59 23:59 Intake Total 1080 / 1540 2557 / 2557 3654 / 4254 1389 / 1389 Output Total 3380 / 3880 4300 / 4300 5050 / 5350 1300 / 1300 Balance -2300 / -2340 -1743 / -1743 -1396 / -1096 89 / 89 Weight 125.758 kg 114.2 kg 124.861 kg 126.552 kg Microbiology Reports for the Last 24 Hours: Microbiology 12/25/20 15:55 Nose - Nasal MRSA Culture - Final Negative Assessment and Plan (1) Pneumonia due to COVID-19 virus Status: Acute Category: Medical Code(s): U07.1 - COVID-19; J12.82 - Pneumonia due to coronavirus disease 2019 (2) Acute hypoxemic respiratory failure due to COVID-19 Status: Acute Category: Medical Code(s): U07.1 - COVID-19; J96.01 - Acute respiratory failure with hypoxia (3) HTN (hypertension) Status: Acute Category: Medical Code(s): I10 - Essential (primary) hypertension (4) Depression Status: Acute Category: Medical Code(s): F32.A - Depression, unspecified The patient's infection will respond to the chosen ABx?: Yes Is the patient receiving the right drug, dose, and route?: Yes Could a more targeted ABx be ordered?: No
--- NOTE | 2020-12-28 09:06 | HMH.ACPN2 ---
<Kayla Arciniega - Last Filed: 12/28/20 09:06> Internal Medicine - PN: Subj *Date: 12/28/20 *Time: 09:06 Interval history: Patient is feeling better. He is now off Vapotherm and on nasal oxygen. He desats into the 80s with any movement but is stable when sitting still. He denies any pain. He states he slept better last night. He was able to clean up yesterday and this made him feel much better. Exam Vital signs and Labs for Last 24 Hours: Temp Pulse Resp BP Pulse Ox 97.7 F 69 18 127/71 92 L 12/28/20 07:42 12/28/20 07:42 12/28/20 07:42 12/28/20 07:42 12/28/20 07:45 I & O for Last 24 hours: Intake & Output 12/25/20 12/26/20 12/27/20 12/28/20 11:59 11:59 11:59 11:59 Intake Total 480 / 480 1420 / 1420 3255 / 3255 3525 / 3525 Output Total 2405 / 2405 2775 / 2775 5400 / 5400 4650 / 4650 Balance -1925 / -1925 -1355 / -1355 -2145 / -2145 -1125 / -1125 Weight 277 lb 4 oz 251 lb 12.286 oz 275 lb 4.339 oz 279 lb Microbiology Reports for the Last 24 Hours: Microbiology 12/25/20 15:55 Nose - Nasal MRSA Culture - Final Negative - Constitutional no acute distress - *Routine Respiratory Exam Present: decreased breath sounds. Absent: wheezes - *Routine Cardiovascular Exam Present: RRR - *Routine Abdominal Exam Present: soft, normoactive bowel sounds. Absent: tenderness - *Routine Extremities Exam Absent: cyanosis, clubbing, edema - *Routine Skin Exam Present: warm. Absent: rash - *Routine Neurological Exam Present: alert, oriented X3 Assessment and Plan (1) Pneumonia due to COVID-19 virus Status: Acute Category: Medical Code(s): U07.1 - COVID-19; J12.82 - Pneumonia due to coronavirus disease 2019 (2) Acute hypoxemic respiratory failure due to COVID-19 Status: Acute Category: Medical Code(s): U07.1 - COVID-19; J96.01 - Acute respiratory failure with hypoxia (3) HTN (hypertension) Status: Acute Category: Medical Code(s): I10 - Essential (primary) hypertension (4) Depression Status: Acute Category: Medical Code(s): F32.A - Depression, unspecified - Assessment and plan all Dx Assessment and Plan for all problems:: Patient is improving in mood seems better today. We will continue current care and discuss with Dr. Garza. <Logan Garza - Last Filed: 12/28/20 17:12> Internal Medicine - PN: Subj *Date: 12/28/20 *Time: 17:10 Exam Vital signs and Labs for Last 24 Hours: Temp Pulse Resp BP Pulse Ox 98.3 F 69 18 110/66 92 L 12/28/20 15:37 12/28/20 16:00 12/28/20 15:37 12/28/20 15:37 12/28/20 15:37 I & O for Last 24 hours: Intake & Output 12/26/20 12/27/20 12/28/20 12/29/20 11:59 11:59 11:59 11:59 Intake Total 1420 / 1420 3255 / 3255 3525 / 3525 480 / 480 Output Total 2775 / 2775 5400 / 5400 6050 / 6050 1000 / 1000 Balance -1355 / -1355 -2145 / -2145 -2525 / -2525 -520 / -520 Weight 251 lb 12.286 oz 275 lb 4.339 oz 279 lb Microbiology Reports for the Last 24 Hours: Microbiology 12/25/20 15:55 Nose - Nasal MRSA Culture - Final Negative Assessment and Plan (1) Pneumonia due to COVID-19 virus Status: Acute Category: Medical Code(s): U07.1 - COVID-19; J12.82 - Pneumonia due to coronavirus disease 2019 (2) Acute hypoxemic respiratory failure due to COVID-19 Status: Acute Category: Medical Code(s): U07.1 - COVID-19; J96.01 - Acute respiratory failure with hypoxia (3) HTN (hypertension) Status: Acute Category: Medical Code(s): I10 - Essential (primary) hypertension (4) Depression Status: Acute Category: Medical Code(s): F32.A - Depression, unspecified - Assessment and plan all Dx Assessment and Plan for all problems:: Patient seen and examined. No new complaints. Has been off Vapotherm since 1600 yesterday. Dyspneic with exertion and sats drop to mid 80s but recover quickly. Continue to wean O
--- NOTE | 2020-12-28 11:03 | P.PN_ITS ---
Internal Medicine - PN: Subj *Date: 12/28/20 *Time: 11:03 Interval history: Patient denies any new respiratory complaints. Exam - Constitutional Constitutional:: Present: no acute distress, comfortable - HENMT Exam HENMT: Present: normocephalic, atraumatic - Eye Exam Eyes:: Present: normal appearance both eyes and related structures - Respiratory Exam Respiratory:: Present: able to speak in complete sentences, respiratory distress, rales - Cardiovascular Exam Cardiac:: Present: S1, S2 - GI Exam GI:: Present: soft, no hepatosplenomegaly - Skin Exam Skin: Present: warm, no rash - Neurological Exam Neurological: Present: alert, awake, normal cognition - Extremities Exam Extremities: Present: no cyanosis, no clubbing, no edema Assessment and Plan (1) Pneumonia due to COVID-19 virus Status: Acute Category: Medical Code(s): U07.1 - COVID-19; J12.82 - Pneumonia due to coronavirus disease 2019 (2) Acute hypoxemic respiratory failure due to COVID-19 Status: Acute Category: Medical Code(s): U07.1 - COVID-19; J96.01 - Acute respiratory failure with hypoxia (3) HTN (hypertension) Status: Acute Category: Medical Code(s): I10 - Essential (primary) hypertension (4) Depression Status: Acute Category: Medical Code(s): F32.A - Depression, unspecified - Assessment and plan all Dx Assessment and Plan for all problems:: #Acute hypoxic respiratory failure: #COVID-19 pneumonia: Mr. Villatoro is a 45-year-old male never smoker no prior respiratory complaints, yet to be vaccinated worse when he was [employer] high risk occupation exposure denies any prior known exposure or COVID-19 symptoms presented to hospital with worsening respiratory distress for the last 4 days. CTA on admission did not show any evidence of pulmonary them however showed bilateral diffuse groundglass opacities. Renal function stable. D-dimer at 1.41, CRP elevated at 122 ferritin at 1790. Lower extremity Doppler negative for DVT. Repeat CTA and lower extremity Doppler from 12/25/20 did not show any acute pulmonary embolism/DVT however showed worsening patchy airspace disease with no new areas involved. He completed 7 days of levofloxacin. He also completed 10-day course of remdesivir and dexamethasone. Currently on ceftriaxone, initiated on 12/25/20- recommend completing 5-day course Nasal MRSA PCR negative Interval update: Patient respiratory continued to improve since yesterday. He was weaned to 10 L Saturation maintained 95% number during examination today. Wean to 6 L nasal cannula. We will continue to wean as tolerated with O2 saturation goal of 88% and above. Plan: -Continue nasal cannula oxygen supplementation, wean as tolerated -Repeat sputum cultures. -Continue proning protocol -Continue Barcitinib x14 days. -Continue Advair on a scheduled basis. -Xopinex every 6 hours PRN Thank you involving pulmonary in this patient care. We will continue to follow.
--- NOTE | 2020-12-28 14:25 | PC.NURSE ---
RESP CARE NOTE: Decreased oxygen back to 6 lpm n/c. Will monitor SPO2 to keep SPO2 above 88% per Dr Spence v/o.
[2020-12-29] VITALS (13 sets, daily range): BP systolic 110–129; BP diastolic 57–98; PULSE 60–89; RESP 16–24; TEMP 36.6–37.2; O2SAT 89–96; BMI 38.2
--- NOTE | 2020-12-29 04:14 | PC.NURSE ---
No acute changes this shift. Pt has not c/o any soa or discomfort this shift. He currently remains on 6L O2 NC high flow. Pt has NRB at bedside if needed. VS have remained stable. Pt has remained afebrile. Medications administered per mar. Urine output remarkable, but remains dark and cloudy. No other concerns. Will continue to monitor.
[2020-12-29 05:27] LABS: Basophils # 0.1 K/mm3 (0-0.2); Basophils % 0.6 % (0.1-2.0); Eosinophils # 0.1 K/mm3 (0.0-0.4); Eosinophils % 0.5 % (0.1-12.0); Hematocrit 39.8 % (42.0-52.0); Hemoglobin 13.3 g/dL (14.1-18.0); Lymphocytes # 2.3 K/mm3 (0.7-4.5); Lymphocytes % 17.9 % (10-50); Mean Corpuscular HGB Conc 33.3 g/dL (31.8-35.4); Mean Corpuscular Hemoglobin 30.3 pg (27.0-31.2); Mean Corpuscular Volume 90.9 fl (80-94); Monocytes # 0.9 K/mm3 (0.1-1.0); Monocytes % 6.7 % (1.7-9.3); Neutrophils # 9.4 K/mm3 (1.8-7.8); Neutrophils % 74.2 % (37.0-80.0); Platelet Count 502 K/mm3 (142-424); Red Blood Count 4.38 M/mm3 (4.60-6.20); Red Cell Distribution Width 14.4 % (11.5-17.5); White Blood Count 12.6 K/mm3 (4.8-10.8)
[2020-12-29 05:37] LABS: Anion Gap 13.4 mEq/L (5-15); Blood Urea Nitrogen 14 mg/dl (9-20); Calcium 8.8 mg/dl (8.4-10.2); Carbon Dioxide 27 mmol/L (22.0-30.0); Chloride 100 mmol/L (98-107); Creatinine Clearance Estimated 270 mL/min (50-200); Estimated Glomerular Filt Rate 145 ml/min (>60); GFR (African American) 176 ML/MIN (>60); Glucose 92 mg/dl (74-100); Potassium 4.4 mmoL/L (3.5-5.1); Sodium 136 mmol/L (136-145)
--- NOTE | 2020-12-29 08:20 | PC.NURSE ---
RESP CARE NOTE: Pt on 5 lpm NC SpO2 remains 94% while resting. Pt does de-sat to low 80's with minimal exertion. Will continue to monitor.
--- NOTE | 2020-12-29 12:57 | HMH.ACPN2 ---
Internal Medicine - PN: Subj *Date: 12/29/20 *Time: 12:57 Interval history: He feels better and is doing better. On 5 lites by nasal cannula and maintaining good sats while sedentary. Drops with exertion. Exam Vital signs and Labs for Last 24 Hours: Temp Pulse Resp BP Pulse Ox 97.9 F 89 24 114/57 L 89 L 12/29/20 12:00 12/29/20 12:00 12/29/20 12:00 12/29/20 12:00 12/29/20 12:00 Laboratory Results - last 24 hr 12/29/20 05:15: WBC 12.6 H, RBC 4.38 L, Hgb 13.3 L, Hct 39.8 L, MCV 90.9, MCH 30.3, MCHC 33.3, RDW 14.4, Plt Count 502 H, MPV 8.0, Neut % (Auto) 74.2, Lymph % (Auto) 17.9, [place] % (Auto) 6.7, Eos % (Auto) 0.5, Baso % (Auto) 0.6, Neut # (Auto) 9.4 H, Lymph # (Auto) 2.3, [place] # (Auto) 0.9, Eos # (Auto) 0.1, Baso # (Auto) 0.1 12/29/20 05:15: Sodium 136, Potassium 4.4, Chloride 100, Carbon Dioxide 27, Anion Gap 13.4, BUN 14, Creatinine 0.60 L D, Estimated Creat Clear 270, Estimated GFR 145, Est GFR ( Amer) 176 D, Glucose 92, Calcium 8.8 I & O for Last 24 hours: Intake & Output 12/27/20 12/28/20 12/29/20 12/30/20 11:59 11:59 11:59 11:59 Intake Total 3255 / 3255 3525 / 3525 3704 / 3704 240 / 240 Output Total 5400 / 5400 6050 / 6050 4700 / 4700 Balance -2145 / -2145 -2525 / -2525 -996 / -996 240 / 240 Weight 275 lb 4.339 oz 279 lb 273 lb 2.444 oz - Constitutional no acute distress - *Routine HEENT Exam Head: Present: normocephalic Eye: Present: PERRL ENT: Present: mucous membranes moist - *Routine Neck Exam Present: supple, full ROM - Routine Chest/Breast/Axilla Exam Chest wall: Absent: tenderness - *Routine Respiratory Exam Present: CTA bilaterally (with improved air movement) - *Routine Cardiovascular Exam Present: RRR - *Routine Abdominal Exam Present: soft. Absent: tenderness - *Routine Extremities Exam Present: edema (minimal) - *Routine Skin Exam Present: warm. Absent: rash - *Routine Neurological Exam Present: alert, oriented X3 Assessment and Plan (1) Pneumonia due to COVID-19 virus Status: Acute Category: Medical Code(s): U07.1 - COVID-19; J12.82 - Pneumonia due to coronavirus disease 2019 (2) Acute hypoxemic respiratory failure due to COVID-19 Status: Acute Category: Medical Code(s): U07.1 - COVID-19; J96.01 - Acute respiratory failure with hypoxia (3) HTN (hypertension) Status: Acute Category: Medical Code(s): I10 - Essential (primary) hypertension (4) Depression Status: Acute Category: Medical Code(s): F32.A - Depression, unspecified - Assessment and plan all Dx Assessment and Plan for all problems:: continue present care and weaning. Very anxious to be discharged to home.
[2020-12-30] VITALS (11 sets, daily range): BP systolic 120–141; BP diastolic 68–82; PULSE 60–102; RESP 16–21; TEMP 36.7–36.9; O2SAT 89–95; BMI 38.1
--- NOTE | 2020-12-30 05:26 | PC.NURSE ---
pt has rested majority of this shift. no acute changes. a&ox4. continues on 5L via NC. o2 noted to be in the mid to low 90s throughout the night. will desat with exertion but recovers well. NSR on tele. uses the urinal independently. clear yellow urine noted. exceptional PO intake noted as he requested water pitcher to be filled X2 this shift. no c/o pain or discomfort voiced. resting in bed at this time. call light within reach.
--- NOTE | 2020-12-30 09:41 | PC.NURSE ---
O2 weaned to 4 L @ 0930, tolerating well. Sat currently 91%.
--- NOTE | 2020-12-30 14:07 | HMH.ACPN2 ---
Internal Medicine - PN: Subj *Date: 12/30/20 *Time: 14:07 Interval history: Improving. Nasal O2 at 4 liters and maintains Sats above 90. With exertion will drop below 90%. We are planning for discharge tomorrow. In AM we will repeat CXR and CBC, BMP. Will need home O2 and nebulizers. Will continue on Barcitinib. Pulmonary will review case in AM as well. Exam Vital signs and Labs for Last 24 Hours: Temp Pulse Resp BP Pulse Ox 98.1 F 102 H 17 122/81 89 L 12/30/20 11:34 12/30/20 12:00 12/30/20 11:34 12/30/20 11:34 12/30/20 11:50 I & O for Last 24 hours: Intake & Output 12/28/20 12/29/20 12/30/20 12/31/20 11:59 11:59 11:59 11:59 Intake Total 3525 / 3525 3704 / 3704 6835 / 6835 480 / 480 Output Total 6050 / 6050 4700 / 4700 6250 / 6250 Balance -2525 / -2525 -996 / -996 585 / 585 480 / 480 Weight 279 lb 273 lb 2.444 oz 272 lb 4.334 oz - Constitutional no acute distress - *Routine HEENT Exam Head: Present: normocephalic Eye: Present: EOMI, PERRL ENT: Present: mucous membranes moist - *Routine Neck Exam Present: supple. Absent: lymphadenopathy - *Routine Respiratory Exam Present: decreased breath sounds, CTA bilaterally - *Routine Cardiovascular Exam Present: RRR - *Routine Abdominal Exam Present: soft, normoactive bowel sounds. Absent: tenderness - *Routine Extremities Exam Absent: cyanosis, clubbing, edema - *Routine Skin Exam Present: warm. Absent: rash - *Routine Neurological Exam Present: alert, oriented X3 Assessment and Plan (1) Pneumonia due to COVID-19 virus Status: Acute Category: Medical Code(s): U07.1 - COVID-19; J12.82 - Pneumonia due to coronavirus disease 2019 (2) Acute hypoxemic respiratory failure due to COVID-19 Status: Acute Category: Medical Code(s): U07.1 - COVID-19; J96.01 - Acute respiratory failure with hypoxia (3) HTN (hypertension) Status: Acute Category: Medical Code(s): I10 - Essential (primary) hypertension (4) Depression Status: Acute Category: Medical Code(s): F32.A - Depression, unspecified - Assessment and plan all Dx Assessment and Plan for all problems:: As described above.
[2020-12-31] VITALS (8 sets, daily range): BP systolic 126–136; BP diastolic 72–76; PULSE 57–95; RESP 16–20; TEMP 36.9–37; O2SAT 83–96; BMI 37.8
--- NOTE | 2020-12-31 05:43 | PC.NURSE ---
pt has rested majority of this shift with no acute changes. continues on 4L NC with o2 sats >90%. good urine output noted throughout the shift. no c/o pain or discomfort. pt expresses he is eager to go home today.
[2020-12-31 05:53] LABS: Basophils # 0.2 K/mm3 (0-0.2); Basophils % 1.2 % (0.1-2.0); Eosinophils # 0.1 K/mm3 (0.0-0.4); Eosinophils % 0.7 % (0.1-12.0); Hematocrit 40.5 % (42.0-52.0); Hemoglobin 13.3 g/dL (14.1-18.0); Lymphocytes # 3.1 K/mm3 (0.7-4.5); Lymphocytes % 22.6 % (10-50); Mean Corpuscular HGB Conc 32.8 g/dL (31.8-35.4); Mean Corpuscular Hemoglobin 29.9 pg (27.0-31.2); Mean Corpuscular Volume 91.2 fl (80-94); Mean Platelet Volume 8.7 fl (7.4-10.4); Monocytes % 7.5 % (1.7-9.3); Neutrophils # 9.3 K/mm3 (1.8-7.8); Platelet Count 509 K/mm3 (142-424); Red Blood Count 4.44 M/mm3 (4.60-6.20); Red Cell Distribution Width 14.5 % (11.5-17.5); White Blood Count 13.6 K/mm3 (4.8-10.8)
[2020-12-31 06:09] LABS: Chloride 100 mmol/L (98-107); Potassium 4.5 mmoL/L (3.5-5.1); Sodium 135 mmol/L (136-145)
[2020-12-31 06:12] LABS: Anion Gap 13.5 mEq/L (5-15); Blood Urea Nitrogen 15 mg/dl (9-20); Carbon Dioxide 26 mmol/L (22.0-30.0); Creatinine Clearance Estimated 229 mL/min (50-200); Estimated Glomerular Filt Rate 121 ml/min (>60); GFR (African American) 147 ML/MIN (>60)
[2020-12-31 06:13] LABS: Calcium 8.9 mg/dl (8.4-10.2); Glucose 89 mg/dl (74-100)
--- NOTE | 2020-12-31 07:30 | XR_ITS ---
PROCEDURE INFORMATION: Exam: XR Chest Exam date and time: 12/31/2020 7:30 AM Age: 45 years old Clinical indication: Cough and shortness of breath and other: Covid pneumonia TECHNIQUE: Imaging protocol: XR of the chest. Views: 1 view. COMPARISON: CR XR CHEST PORTABLE 12/27/2020 7:18 AM FINDINGS: Lungs: Similar patchy bilateral airspace opacities. Pleural spaces: Unremarkable. No pleural effusion. No pneumothorax. Heart/Mediastinum: Unremarkable. No cardiomegaly. Bones/joints: ACDF hardware in the cervical spine. IMPRESSION: Similar appearance of multilobar pneumonia.
--- NOTE | 2020-12-31 08:11 | HMH.ACPN2 ---
Internal Medicine - PN: Subj *Date: 12/31/20 *Time: 08:11 Interval history: Patient states he is going home today. He states he has things [place] to do [place] his [place]. He is quite adamant. He states he is breathing fine and he does well when he ambulates. Denies any pain. He is eating well. CBC this a.m. reveals white blood cell count of 13,600 with a hemoglobin of 13.3 hematocrit 40.5. Blood chemistries are satisfactory. Patient remains afebrile. He currently is on O2 per nasal cannula at 4 L/min With O2 sats greater than 90%. Exam Vital signs and Labs for Last 24 Hours: Temp Pulse Resp BP Pulse Ox 98.6 F 75 16 136/76 96 12/31/20 04:00 12/31/20 07:53 12/31/20 07:53 12/31/20 07:53 12/31/20 06:07 Laboratory Results - last 24 hr 12/31/20 05:15: WBC 13.6 H, RBC 4.44 L, Hgb 13.3 L, Hct 40.5 L, MCV 91.2, MCH 29.9, MCHC 32.8, RDW 14.5, Plt Count 509 H, MPV 8.7, Neut % (Auto) 68.0, Lymph % (Auto) 22.6, [place] % (Auto) 7.5, Eos % (Auto) 0.7, Baso % (Auto) 1.2, Neut # (Auto) 9.3 H, Lymph # (Auto) 3.1, [place] # (Auto) 1.0, Eos # (Auto) 0.1, Baso # (Auto) 0.2 12/31/20 05:15: Sodium 135 L, Potassium 4.5, Chloride 100, Carbon Dioxide 26, Anion Gap 13.5, BUN 15, Creatinine 0.70, Estimated Creat Clear 229, Estimated GFR 121, Est GFR ( Amer) 147, Glucose 89, Calcium 8.9 I & O for Last 24 hours: Intake & Output 12/28/20 12/29/20 12/30/20 12/31/20 11:59 11:59 11:59 11:59 Intake Total 3525 / 3525 3704 / 3704 6835 / 6835 6310 / 6310 Output Total 6050 / 6050 4700 / 4700 6250 / 6250 3900 / 3900 Balance -2525 / -2525 -996 / -996 585 / 585 2410 / 2410 Weight 279 lb 273 lb 2.444 oz 272 lb 4.334 oz 270 lb 8.115 oz - Constitutional no acute distress - *Routine Respiratory Exam Present: CTA bilaterally (Anteriorly and posteriorly) - *Routine Cardiovascular Exam Present: RRR - *Routine Abdominal Exam Present: soft, normoactive bowel sounds. Absent: tenderness - *Routine Extremities Exam Absent: edema, calf tenderness - *Routine Neurological Exam Present: alert, oriented X3 Assessment and Plan (1) Pneumonia due to COVID-19 virus Status: Acute Category: Medical Code(s): U07.1 - COVID-19; J12.82 - Pneumonia due to coronavirus disease 2019 (2) Acute hypoxemic respiratory failure due to COVID-19 Status: Acute Category: Medical Code(s): U07.1 - COVID-19; J96.01 - Acute respiratory failure with hypoxia (3) HTN (hypertension) Status: Acute Category: Medical Code(s): I10 - Essential (primary) hypertension (4) Depression Status: Acute Category: Medical Code(s): F32.A - Depression, unspecified - Assessment and plan all Dx Assessment and Plan for all problems:: Patient to be seen by Dr. Amaya after which he most likely will be discharged home.
--- NOTE | 2020-12-31 09:33 | P.PN_ITS ---
Internal Medicine - PN: Subj *Date: 12/31/20 *Time: 11:29 Interval history: No acute respiratory vents overnight. Exam - Constitutional Constitutional:: Present: no acute distress, comfortable - HENMT Exam HENMT: Present: normocephalic, atraumatic - Eye Exam Eyes:: Present: normal appearance both eyes and related structures - Neck Exam Neck:: Present: normal visual inspection - Respiratory Exam Respiratory:: Present: able to speak in complete sentences, respiratory dis tress, rales - Cardiovascular Exam Cardiac:: Present: S1, S2 - GI Exam GI:: Present: soft - Skin Exam Skin: Present: warm, no rash - Neurological Exam Neurological: Present: alert, awake, normal cognition - Extremities Exam Extremities: Present: no cyanosis, no clubbing, no edema Assessment and Plan (1) Pneumonia due to COVID-19 virus Status: Acute Category: Medical Code(s): U07.1 - COVID-19; J12.82 - Pneumonia due to coronavirus disease 2019 (2) Acute hypoxemic respiratory failure due to COVID-19 Status: Acute Category: Medical Code(s): U07.1 - COVID-19; J96.01 - Acute respiratory failure with hypoxia (3) HTN (hypertension) Status: Acute Category: Medical Code(s): I10 - Essential (primary) hypert ension (4) Depression Status: Acute Category: Medical Code(s): F32.A - Depression, unspecified - Assessment and plan all Dx Assessment and Plan for all problems:: #Acute hypoxic respiratory failure: #COVID-19 pneumonia: Mr. Villatoro is a 45-year-old male never smoker no prior respiratory complaints, yet to be vaccinated worse when he was [employer] high risk occupation exposure denies any prior known exposure or COVID-19 symptoms presented to hospital with worsening respiratory distress for the last 4 days. CTA on admission did not show any evidence of pulmonary them however showed bilateral diffuse groundglass opacities. Renal function stable. D-dimer at 1.41, CRP elevated at 122 ferritin at 1790. Lower extremity Doppler negative for DVT. Repeat CTA and lower extremity Doppler from 12/25/20 did not show any acute pulmonary embolism/DVT however showed worsening patchy airspace disease with no new areas involved. He completed 7 days of levofloxacin. He also completed 10-day course of remdesivir and dexamethasone. Currently on ceftriaxone, initiated on 12/25/20- recommend completing 7-day course Nasal MRSA PCR negative Interval update: Respiratory status continued to improve. He this morning on 4 L nasal cannula saturating 88 to 90%. Patient did complain of desaturate with exertion. Patient would like to be discharged home Discussed with the patient regarding the risks and benefits of being used and patient expresses complete understanding and would like to be discharged home. The plan was made to discharge patient home on 5 L nasal cannula at rest and 6 L with exertion with close follow-up both with Dr. Smith and in the pulmonary clinic. Plan: -Continue antibiotics to complete a 7-day course -Continue nasal cannula oxygen supplementation, 5L at rest and 6L with exertion -Continue Barcitinib x14 days. -Continue Advair on a scheduled basis. -Xopinex every 6 hours PRN Thank you involving pulmonary in this patient care. We will follow the patient in pulmonary clinic in 1 to 2 weeks.
--- NOTE | 2020-12-31 09:34 | SW/DCPLANNER ---
Addendum entered by Ayesha Rhodes 12/31/20 10:23: Paula escudero/ Abhinav has stated patient information/order has been reviewed and equipment will be delivered today. Original Note: This patient is expected to discharge home today. Patient information/order will be faxed to [facility] for patient to have: portable O2, home O2 and nebulizer machine. I will follow up with Abhinav once patient information is reviewed.
--- NOTE | 2020-12-31 13:25 | PC.NURSE ---
Patient ready for discharge to home today. Home O2 delivered for transportation to home. Patient will call oxygen company when home to set up oxygen tanks for home use.
--- NOTE | 2021-01-01 15:43 | HMH.DCSUM ---
General - General Admission date:: 12/17/20 Discharge date: 12/31/20 HPI HPI: Mr. Villatoro is a 45yo male with history of hypertension and hyperlipidemia. He presented to the [facility] ED with shortness of breath. He denies any fevers, nausea, vomiting, or diarrhea at home but does state that he has had headache, cough, fatigue, lightheadedness, and generalized body aches. His symptoms began on December 12. He has a pulse ox at home which he has been using to monitor his oxygen and notes it has dropped as low as 83% at home. He denies any history of COPD, asthma, or smoking. He has not received a COVID-19 vaccine. Upon arrival to the ED, patient was found to be hypoxic and placed on oxygen at 6lpm. His COVID screen was positive and bloodwork showed a mild NIMA with creatinine of 1.9. He was given a liter of fluids and acetaminophen and his case was discussed with Dr. Smith. He will be admitted with orders for pulmonary consult as well as IgG and IgM antibodies and Chest CT. At this time, he is resting comfortably on a stretcher. He denies any pain. His O2 sat is 95% on 6lpm. He reports considerable improvement in his shortness of breath with O2 in place although it increased with any movement. CXR and Chest CT have both been completed and reports are pending. Hospital Course Hospital Course: The patient was admitted and started on Covid protocol and pulmonology was consulted. His chest x-ray showed bilateral multifocal pneumonia. His chest CTA showed bilateral pneumonia consistent with COVID-19 but no evidence of PE. The patient generally felt poorly. He was started on duo nebs as well as Tylenol and Motrin for fever and discomfort. Repeat chest x-ray showed worsening bilateral pneumonia. He was seen in consultation by pulmonology who recommended continuous telemetry monitoring as well as a venous Doppler. He also started him on proning protocol and initiated high flow nasal cannula oxygen to keep his oxygen saturation above 90%. He was started on Levaquin for a total of 5 days and continued on remdesivir and dexamethasone. Barcitinib was also initiated for 14 days. The patient was also started on Advair. The patient's venous Doppler showed no evidence of DVT. He was on Vapotherm at 70% with sats around 96%. He did not have much of an appetite and continued with some back and chest discomfort. His progression was very slow. He was short of breath with any movement and his oxygen decreased with any movement. He had a repeat chest x-ray on 12/21/2020 showing no change in his pneumonia. He became very frustrated with his progress and had some issues with depression. His appetite did begin improving slowly. He was finally able to be weaned to nasal oxygen. The patient was given some IV Lasix. He had a repeat chest x-ray which actually appeared worse and had to go back on Vapotherm. 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 Dr. Smith felt it could be opportunistic in his debilitated state on steroids. Rocephin was resumed. A CT angiogram was also ordered and showed no evidence of PE but markedly prominent diffuse bilateral pneumonia. He had a repeat venous Doppler as well which showed no evidence of DVT. He continued to remain depressed and was started on an antidepressant. He was unable to tolerate the medication and stated it made him worse. He continued to desat with any activity. His nebs were switched to Xopenex due to tremulousness. He had another chest x-ray on 12/28/2020 which finally showed slight interval improvement in the right lung. He was able to be weaned back off of the Vapotherm and was placed on nasal oxygen. He began sleeping better and his mood improved. He was able to will be weaned down to 4 L of nasal cannula and his sats were good as long as he was sedentary. They dropped with any exertion. The patient wanted to be discharged home. He had a re
== END 2020-12-31 14:25 | disposition home or self-care (01) | DRG 177 ==
LOC: ER 10:06 → 2ND 14:04 → ICU 12-20 12:42
PROVIDERS: Family Medicine; Internal Medicine Pulmonary Disease; Nurse Practitioner Family; Admitting Provider Family Medicine; Emergency Provider Emergency Medicine; PCP Family Medicine; Visit Provider Family Medicine
DX: U07.1 COVID-19 (principal); J12.82 Pneumonia due to coronavirus disease 2019; J96.01 Acute respiratory failure with hypoxia; N17.9 Acute kidney failure, unspecified; E78.5 Hyperlipidemia, unspecified; I10 Essential (primary) hypertension; M19.90 Unspecified osteoarthritis, unspecified site
CPT/HCPCS: 36415; 71045; 71275; 80048; 80053; 82728; 83605; 85007; 85025; 85378; 86140; 86328; 87070; 87077; 87081; 87205; 93005; 93970; 94640; 94760; 94761; 96365; 96375; 99285; C9803; J1956; Q9967; U0003; U0005

== ENCOUNTER 2021-11-12 10:47 | Emergency (ER) | payer BC, SELFPAY ==
[2021-11-12 11:30] VITALS: BP 131/86; PULSE 71; RESP 20; TEMP 36.7; O2SAT 99; BMI 39.0
--- NOTE | 2021-11-12 12:00 | EXP.UTC ---
Discharge Plan Disposition Patient Disposition: Home, Self-Care Condition: Good Prescriptions Prescriptions: New methocarbamol 500 mg tablet 500 mg PO BID PRN (Reason: muscle spasm) Qty: 10 0RF No Action atorvastatin 10 mg tablet 10 mg PO HS ProAir RespiClick 90 mcg/actuation aerosol powdr breath activated 1 inh INHALATION Q4-6H PRN (Reason: shortness of breath or wheezing) Qty: 1 1RF AirDuo Digihaler 232-14 mcg/actuation aero powdr breath act w/sensor 1 inh INHALATION BID Qty: 1 2RF levalbuterol HCl 1.25 mg/3 mL solution for nebulization 1.25 mg INHALATION TIDP PRN (Reason: Shortness Of Breath) Qty: 75 2RF losartan-hydrochlorothiazide 1 EACH tablet 1 tab PO DAILY ascorbic acid (vitamin C) 500 MG tablet 500 mg PO QID 0RF ergocalciferol (vitamin D2) 50,000 UNIT capsule 50,000 unit PO WEEKLY Qty: 20 0RF zinc sulfate 220 MG capsule 220 mg PO DAILY Qty: 100 1RF aspirin 81 MG tablet,delayed release (DR/EC) 81 mg PO DAILY Qty: 100 0RF Referrals Follow up/Referrals: Mauro Smith MD [Primary Care Provider] - See instructions Activity Restrictions/Add. Instructions Additional Instructions/Restrictions: *Ibuprofen [place] 6 hours with meal as needed for pain/inflammation *Remember you had a Toradol shot in the clinic today, which is similar to Motrin *Not additional anti-inflammatory like motrin, aleve, advil with the above amount of ibuprofen. You can still take Tylenol every 4 hours as needed if you need something else for pain *Ice 20 minutes every 2 hours for the first 48 hours after the initial injury followed by moist heat every 20 minutes 3-4 times a day to affected area *Keep this area active, no movement leads to more stiffness, However take it easy and avoid heavy lifting pushing or pulling *Follow up with you family doctor if no improvement for further treatment Follow up with Pain management if pain continues ? Clinical Impressions Clinical Impression: Low back pain, Patient left without being seen Stand Alone Forms Stand Alone Forms: Work/School Release Instructions Patient Instructions: Sciatica, DI for Back Pain With Sciatica Discharge ED Provider: Jigna Lopez [facility] HPI General Stated complaint: back pain Mode of Arrival: Ambulatory Source of Information: Patient Limitations: No Limitations Time Seen by Provider: 11/12/21 12:00 Description of Symptoms (Recalled from Triage Doc. by RN): PATIENT C/O RIGHT LOWER BACK PAIN THAT RADIATES DOWN TO LEG SINCE YESTERDAY MORNING HEENT Symptoms (Recalled from RN notes): No Resp Symptoms (Recalled from RN notes): No Skin Symptoms (Recalled from RN notes): No MS Symptoms (Recalled from RN notes): Yes Functional Status (Recalled from RN notes): WNL History of Present Illness Provider Complaint: Patient states that he has history of sciatca States that he started having pain yesterday in his right lower back that goes down into his buttock area like he has had before with Sciatica Denies loss of control of bowel or bladder Related Data Home Medications Medication Instructions Recorded Confirmed atorvastatin 10 mg tablet 10 mg PO HS Cholesterol 11/16/19 01/14/21 losartan 100 1 tab PO DAILY BLOOD PRESSURE 12/17/20 01/14/21 mg-hydrochlorothiazide 12.5 mg tablet Previous Rx's Medication Instructions Recorded ascorbic acid (vitamin C) 500 mg 500 mg PO QID 12/31/20 tablet aspirin 81 mg tablet,delayed 81 mg PO DAILY #100 tabs 12/31/20 release ergocalciferol (vitamin D2) 1,250 50,000 unit PO WEEKLY #20 caps 12/31/20 mcg (50,000 unit) capsule zinc sulfate 50 mg zinc (220 mg) 220 mg PO DAILY #100 caps 12/31/20 capsule fluticasone 232mcg-salmeterol 1 inh inhalation BID #1 ea 01/01/21 14mcg/actuation breath act,powder sensor (AirDuo Digihaler) levalbuterol HCl 1.25 mg/3 mL 1.25 mg (3 mL) inhalation TIDP PRN 01/01/21 solution for nebulization Shortness
[2021-11-12 12:17] VITALS: BP 131/86; PULSE 71; RESP 20; TEMP 36.7; O2SAT 99
== END 2021-11-12 12:34 | disposition home or self-care (01) ==
PROVIDERS: Emergency Provider Nurse Practitioner; PCP Family Medicine
DX: M54.41 Lumbago with sciatica, right side (principal)
CPT/HCPCS: 96372; 99212; G0463

== ENCOUNTER → 2022-07-31 08:52 | Outpatient (CLI) | payer OTHER, SELFPAY ==
[2022-07-31 09:47] LABS: Bilirubin,Indirect 4.4 mg/dL (0.0-0.9); Bilirubin,Total 4.4 mg/dl (0.2-1.3); Bilirubin,Unconjugated 4.5 mg/dL (0.0-1.1)
[2022-07-31 09:47] LABS: Alanine Aminotransferase 83 U/L (12-78); Albumin Level 4.8 g/dl (3.5-5.0); Alkaline Phosphatase 69 U/L (38-126); Aspartate Amino Transferase 45 U/L (17-59); Bilirubin,Indirect 4.4 mg/dL (0.0-0.9); Bilirubin,Total 4.4 mg/dl (0.2-1.3); Bilirubin,Unconjugated 4.5 mg/dL (0.0-1.1); Total Protein,Serum 6.8 g/dl (6.3-8.2)
[2022-08-17 22:37] LABS: ALT (SGPT) P5P 72; Alpha 2-Macroglobulins, Qn 86; Apolipoprotein A-1 122; Bilirubin, Total 3.9; GGT 39; Haptoglobin 180
[2022-08-17 22:38] LABS: AST (SGOT) P5P 29; Cholesterol, Total 115; Glucose 116; Triglycerides 209
[2022-09-25 10:13] LABS: Fibrosis Score 0.23
[2022-09-25 10:14] LABS: Fibrosis Stage F0-F1
[2022-09-25 10:16] LABS: Steatosis Score 0.81
[2022-09-25 10:17] LABS: NASH Grade N1
== END ==
PROVIDERS: PCP Physician Assistant; Visit Provider Nurse Practitioner
DX: R17 Unspecified jaundice (principal); R74.8 Abnormal levels of other serum enzymes; E80.4 Gilbert syndrome
CPT/HCPCS: 36415; 80076; 82247; 82248

== ENCOUNTER 2022-09-18 09:34 | Day surgery (SDC) | payer OTHER, SELFPAY ==
[2022-09-12 09:47] VITALS: BMI 40.4
[2022-09-18 10:25] VITALS: BP 145/85; PULSE 78; RESP 18; TEMP 36.1; O2SAT 97
[2022-09-18 11:03] VITALS: O2SAT 98
--- NOTE | 2022-09-18 11:20 | HMH.SCOPE ---
Procedure: Date: 09/18/22 Patient Date of :: 1975 Procedure Performed:: Screening colonoscopy Indications:: Family history of colon cancer Performing Provider:: Gigi Choudhury MD Referring Provider:: Chiqui Choudhury APRN Sedation:: Propofol Procedure:: After placing the patient in the left lateral decubitus position, the colonoscopy was gently inserted into the rectum and under direct visualization advanced to the cecum which was identified by transillumination in the right lower quadrant, identification of the ileocecal valve, appendiceal orifice, and cecal strap. Color, texture, mucosa, and anatomy of the colon were carefully examined with the scope. Findings:: Anal canal: normal Rectum: normal Sigmoid colon: normal without polyps or inflammatory changes Descending colon: normal without polyps or inflammatory changes Splenic flexure: normal Transverse colon: normal without polyps or inflammatory changes Hepatic flexure: normal Ascending colon: normal without polyps or inflammatory changes Cecum: normal Terminal ileum: not visualized Impression: Normal colonoscopy Recommendations:: Follow up examination in about FIVE years or so, sooner if clinically indicated in view of family history risks. Complications:: None Estimated blood obtained (mL): 0 Colonoscopy Component Colonoscopy Component Was a colonoscopy performed during today's procedure?: Yes Recommended follow up colonoscopy of at least 10 years?: No If no, follow up colonoscopy recommended in ___ years?: Five Reason for not recommending >/= 10 yr follow-up interval?: Family history
[2022-09-18 11:26] VITALS: BP 104/48; PULSE 71; RESP 18; TEMP 37.1; O2SAT 92
--- NOTE | 2022-09-18 11:27 | EXP.ANES.CKL ---
[facility] Disclaimer: The information contained in this section may have been updated after the patient was seen, as this information can be updated by other users. Medical History Anxiety Hyperlipidemia Hypertension Surgical History History of cholecystectomy History of tonsillectomy Family History Other Colon cancer Family history of cancer Family history of diabetes mellitus type II Family history of hyperlipidemia Family history of hypertension Family history of myocardial infarction Family history of stroke Social History Smoking Status: Never smoker second hand exposure: No alcohol intake: never substance use type: denies use current occupational status: employed Travel in the last 8 weeks: None household members: spouse and children housing: house lives independently: No marital status: education level: high school service: No current occupational exposures/hazards: No caffeine: Yes do you feel safe at home: Yes victim of physical abuse: No victim of emotional abuse: No victim of sexual abuse: No would you like helpful sources: No [facility] Anesthesia Checklist Patient Identification Patient Identification: Arm Band and Family Structural Data Admitted From: Home Planned Operative Procedure/s: Colonoscopy. Consent for Planned Operative Procedure(s) Verified: Yes Verified Documents: Surgical Consent NPO Status Verified Time NPO: 00:00 Additional verifications Patient : No Anesthesia Reactions: No Hx Blood Transfusions: No Blood Transfusion Reaction: No Cephalosporin Allergy: No Previous Colonoscopy: No Airway Assessment C-Spine Mobility Assessed: Yes TMJ Mobility Assessed: Yes Dentition: Good Dentition Neurological Assessment Level of Consciousness: Awake, Alert, Appropriate and Follows Commands Hx Seizures: No Numbness or tingling in extremities: No Anesthesia Plan Anesthesia Risk discussed: Yes ASA Class: II Anesthesia Type: MAC Preoperative Comments Pre-Operative Comments: Hypertension.
--- NOTE | 2022-09-18 11:29 | EXP.ANES.CKL ---
[facility] Disclaimer: The information contained in this section may have been updated after the patient was seen, as this information can be updated by other users. Medical History Anxiety Hyperlipidemia Hypertension Surgical History History of cholecystectomy History of tonsillectomy Family History Other Colon cancer Family history of cancer Family history of diabetes mellitus type II Family history of hyperlipidemia Family history of hypertension Family history of myocardial infarction Family history of stroke Social History Smoking Status: Never smoker second hand exposure: No alcohol intake: never substance use type: denies use current occupational status: employed Travel in the last 8 weeks: None household members: spouse and children housing: house lives independently: No marital status: education level: high school service: No current occupational exposures/hazards: No caffeine: Yes do you feel safe at home: Yes victim of physical abuse: No victim of emotional abuse: No victim of sexual abuse: No would you like helpful sources: No [facility] Anesthesia Checklist Patient Identification Patient Identification: Arm Band and Family Structural Data Admitted From: Home Planned Operative Procedure/s: Colonoscopy Consent for Planned Operative Procedure(s) Verified: Yes Verified Documents: Surgical Consent NPO Status Verified Time NPO: 00:00 Additional verifications Patient : No Anesthesia Reactions: No Hx Blood Transfusions: No Blood Transfusion Reaction: No Cephalosporin Allergy: No Previous Colonoscopy: No Airway Assessment C-Spine Mobility Assessed: Yes TMJ Mobility Assessed: Yes Dentition: Good Dentition Neurological Assessment Level of Consciousness: Awake, Alert, Appropriate, Follows Commands and Drowsy Hx Seizures: No Numbness or tingling in extremities: No Anesthesia Plan Anesthesia Risk discussed: Yes ASA Class: II Anesthesia Type: MAC Preoperative Comments Pre-Operative Comments: Hypertension
[2022-09-18 11:36] VITALS: BP 109/64; PULSE 72; RESP 18; O2SAT 95
[2022-09-18 11:46] VITALS: BP 121/72; PULSE 69; RESP 18; O2SAT 98
[2022-09-18 11:56] VITALS: BP 123/67; PULSE 69; RESP 18; O2SAT 96
== END 2022-09-18 11:56 | disposition home or self-care (01) ==
PROVIDERS: PCP Physician Assistant; Visit Provider Internal Medicine Gastroenterology
PROC: 0DJD8ZZ Inspection of Lower Intestinal Tract, Via Natural or Artificial Opening Endoscopic (ICD-10-PCS; CPT 45378; principal; 2022-09-18 11:00)
DX: Z12.11 Encounter for screening for malignant neoplasm of colon (principal); Z80.0 Family history of malignant neoplasm of digestive organs
CPT/HCPCS: 45378

== ENCOUNTER 2023-08-19 10:05 | Outpatient (CLI) | payer OTHER, SELFPAY ==
--- NOTE | 2023-08-19 10:15 | US_ITS ---
FINAL REPORT TECHNIQUE: Multiple transverse and longitudinal images CLINICAL HISTORY: ABN LIVER FUNCTION COMPARISON: None FINDINGS: The gallbladder has been surgically resected. No biliary ductal dilatation is appreciated. No fluid collections are seen. Fatty infiltration of the liver is present. There are a few benign-appearing hepatic cysts noted, measuring up to 2.4 cm in size. Limited portions of the right kidney are unremarkable. IMPRESSION: Fatty infiltration of the liver. There are also a few benign-appearing hepatic cysts noted in the liver. The gallbladder has been surgically resected, and no evidence of biliary ductal dilatation is appreciated. Reviewed, Interpreted and Dictated by Mauro Mtz MD Transcribed by Yoly Campbell Authenticated and [facility]
== END 2023-08-19 23:59 | disposition home or self-care (01) ==
LOC: RAD 10:11
PROVIDERS: PCP Physician Assistant; Visit Provider Physician Assistant
DX: R94.5 Abnormal results of liver function studies (principal)
CPT/HCPCS: 76705

== ENCOUNTER 2024-11-10 07:44 | Outpatient (CLI) | payer OTHER, SELFPAY ==
--- OUTSIDE RECORDS SUMMARY | 2023-07-24 05:00 | XMS_ITS ---
Author Organization [facility] Address [address] [place] [id number] Care Team Providers Care Coding Compliance Manager Name Role Phone Madison Smith Primary Care Provider Kayla Arciniega Unavailable [phone] Allergies Allergen (clinical drug ingredient) Drug/Non Drug Allergy documented on EMR Reaction Allergy Type Onset Date Status Maxzide-25 hives, combative Drug Allergy Active Results Component Value Reference Range Notes CBC Venipuncture (in house) Reviewed date:07/24/2023 12:44:20 PM Interpretation: Performing Lab: Notes/Report: wbc 6.8 3.5 - 10 lymph 30.3 15 - 50 mid 7.0 2 - 15 gran 62.7 35 - 80 rbc 4.80 3.5 - 5.5 hgb 14.9 11.5 - 16.5 hct 43.9 35 - 55 mcv 91.4 75 - 100 mch 31.0 25 - 35 mchc 33.9 31 - 38 platlet 216 100 - 400 P-Vitamin B12 Reviewed date:07/30/2023 09:33:25 AM Interpretation:1956 Performing Lab: Notes/Report: Test performed by [facility], [facility] [address] [place] [address] , [address], [place] [address] Wilmar Chang MD, Pipe Stress Engineer CLIA: [id number] Vitamin B12 5384 094-1233 pg/mL P-Comprehensive Metabolic Pa gomez (CMP) Reviewed date:07/30/2023 09:33:25 AM Interpretation:gluc 108, alt 121, ast 58, bili 5.0, a/g 3.0 Performing Lab: Notes/Report: Test performed by [facility] [address] [place] [address] , [address], [place] [address] Wilmar Chang MD, Pipe Stress Engineer CLIA: [id number] Sodium 141 135-145 mEq/L Potassium 4.2 3.5-5.3 mEq/L Chloride 101 97-108 mEq/L CO2 27 22-32 mEq/L Glucose 108 65-99 mg/dL BUN 11 6-20 mg/dL Creatinine 0.97 0.70-1.30 mg/dL Specimen affected by icterus. Results should be interpreted in conjunction with clinical presentation and history. Calcium 9.8 8.6-10.4 mg/dL eGFR by Creatinine 96 >59 mL/min/1.73m2 Protein 6.8 6.0-8.3 g/dL Albumin 5.1 3.5-5.3 g/dL Alkaline Phosphatase 66 40-129 IU/L ALT (SGPT) 121 <5-55 IU/L AST (SGOT) 58 <5-46 IU/L Bilirubin, Total 5.0 <0.2-1.2 mg/dL A/G Ratio 3.0 1.1-2.5 mg/dL P-Lipid Panel Reviewed date:07/30/2023 09:33:25 AM Interpretation:tg 202 Performing Lab: Notes/Report: Test performed by [facility] [address] [place] [address] , [address], [place] [address] Wilmar Chang MD, Pipe Stress Engineer CLIA: [id number] Cholesterol 132 <200 mg/dL Triglycerides 202 <150 mg/dL HDL Cholesterol 42 >39 mg/dL Cholesterol / HDL Ratio 3.14 0.00-4.99 Ratio Non-HDL Cholesterol 90 <130 mg/dL LDL Cholesterol (Calculation) 50 <130 mg/dL LDL Cholesterol Levels* Less than 100 mg/dL Optimal 100 to 129 mg/dL Near Optimal/ Above Optimal 130 to 159 mg/dL Borderline High 160 to 189 mg/dL High 190 mg/dL and above Very High * Categories as recommended by the 2004 ATPIII guidelines LDL/HDL Ratio 1.2 <3.3 Ratio LDL Cholesterol Patient History Test Date: 07/03/2022 LDL Results: 39 Units: mg/dL % Change: - Test Date: 07/24/2023 LDL Results: 50 Units: mg/dL % Change: +28% P-PSA Reviewed date:07/30/2023 09:33:25 AM Interpretation:Normal Performing Lab: Notes/Report: Test performed by [facility] [address] [place] [address] Wilmar Chang MD, Pipe Stress Engineer CLIA: [id number] PSA 1.25 <4.00 ng/mL Please note this is an ultrasensitive PSA assay with a lower limit of detection of 0.014 ng/mL. This test is performed by the Tom ECLIA methodology. Values obtained with different assay methods or kits cannot be directly compared. P-TSH reflex to FT4 Reviewed date:07/30/2023 09:33:25 AM Interpretation:Normal Performing Lab: Notes/Report: Test performed by [facility] [address] [place] [address] Wilmar Chang MD, Pipe Stress Engineer IA: [id number] TSH reflex to FT4 1.15 0.43-5.25 mU/L REASON FOR VISIT follow up Medications Medication SIG (Take, Route, Frequency, Duration) Notes Start Date End Date Status CoQ-10 100 MG 1 cap(s) orally once a day; Duration: 30 day(s) 08/22/2019 Active Tadalafil 10 MG 1 tablet as needed Orally every 36 hours, prn 07/24/2023 Active Zepbound 2.5 MG/0.5ML 2.5 mg Subcutaneou s once a week 02/27/2023 Not-Taking Losartan Potassium-HCTZ 100-25 MG 1 tab(s) orally once a day; Duration: 90 days 03/07/2022 Active amLODIPine Besylate 5 MG 1 tablet Orally Once a day 07/24/2023 Active B-12 1000 MCG 1 tab(s) orally once a day; Duration: 30 day(s) Active Atorvastatin Calcium 10 MG 1 tab(s) orally once a day; Duration: 90 days Active Problems Problem Type SNOMED Code ICD Code Onset Dates Problem Status W/U Status Risk Notes Problem Morbid obesity (483764625) Obesity, Class III, BMI 40-49.9 (morbid obesity) (E66.01) Active confirmed Vital Signs Blood pressure systolic 128 mm Hg 07/24/19 24 Blood pressure diastolic 92 mm Hg 024 Heart Rate 58 /min 07/24/2023 Height 71 in 07/24/2023 Weight 334 lbs 07/24/2023 BMI 46.58 kg/m2 07/24/2023 Encounters Encounter Location Date Provider Diagnosis [facility] [address] [facility] [address], [place] [id number] 07/24/2023 Kayla Arciniega Essential hypertensi on I10 ; Mixed hyperlipidemia E78.2 ; Obesity, Class III, BMI 40-49.9 (morbid obesity) E66.01 ; [place] disease E80.4 ; Vitamin B12 deficiency E53.8 ; Screening PSA (prostate specific antigen) Z12.5 and Erectile dysfunction, unspecified erectile dysfunction type N52.9 Assessments Encounter Date Diagnosis (ICD Code) Assessment Notes Treatment Notes Treatment Clinical Notes Section Notes 07/24/2023 Essential hypertension (ICD-10 - I10) 07/24/2023 Mixed hyperlipidemia (ICD-10 - E78.2) 07/24/2023 Obesity, Class III, BMI 40-49.9 (morbid obesity) (ICD-10 - E66.01) Gave samples of contrave to try. He is going to call his insurance and see if it is approved. 07/24/2023 [place] disease (ICD-10 - E80.4) 07/24/2023 Vitamin B12 deficiency (ICD-10 - E53.8) 07/24/2023 Screening PSA (prostate specific antigen) (ICD-10 - Z12.5) 07/24/2023 Erectile dysfunction, unspecified erectile dysfunction type (ICD-10 - N52.9) Patient would like something that works over a longer period of time. Plan Of Treatment Medication Medication Name Sig Start Date Stop Date Notes Tadalafil 10 MG 1 tablet as needed O rally every 36 hours, prn 07/24/2023 Sildenafil Citrate 50 MG 1 tablet as nee ded 1-4 hours before sexual activity Orally Once a day, prn 02/27/2023 Losartan Potassium-HCTZ 100- 25 MG 1 tab(s) orally once a day; Duration: 90 days 03/07/2022 amLODIPine Besylate 5 MG 1 tablet Orally Once a day 2023 Atorvastatin Calcium 10 MG 1 tab(s) oral ly once a day; Duration: 90 days Treatment Notes Assessment Notes Obesity, Class III, BMI 40-4 9.9 (morbid obesity) Gave samples of contrave to try. He is going to call his insurance and see if it is approved. Erectile dysfunction, unspec ified erectile dysfunction type Patient would like something that works over a longer period of time. Next Appt Details Follow Up: via phone to repo rt test results, Reason: Progress Notes * SHANKAR ENGLISHDOB:1975 (49 yo M)Acc No.[id number]:07/24/2023 Progress Notes Patient: SHANKAR RAND Provider: AIDEN Jade :1975 A ge:48 Y S ex:Male Date:07/24/2023 Address:[address] [place], [place] [id number] Pcp:Madison Smith Subjective: * Chief Complaints: * 1 . Follow up. * HPI: C ardiology: Blood Pressure Elevated P t is here for a check up and labs. Pt is fasting today. Pt sts that his BP has been high at home with his top number in the 150's and bottom number in the 60's. C onstitutional: Weight gain P t sts that he has put some weight back on since not being able to continue taking Zepbound due to insurance. Pt sts that he sometimes has a hard time breathing and feels like his heart is pounding and he feels this is due to him being overweight. * ROS: A LLERGY: no C ough. n o R unny nose. D ERMATOLOGY: no R georges. n o H stevo. U ROLOGY: no D ifficulty urinating. n o B lood in urine. * Medical History: G ilbert's syndrome, HBP, HLP, COVID 19 11/2020. * Surgical History: L eft knee surgery 1993, T5-T6 spinal fusion 2015. * Hospitalization/Major Diagno stic Procedure: c ovid 12/17/2020. * Family History: F ather: alive, diagnosed with Hypertension, Heart Disease. M other: , diagnosed with Diabetes. 1 brother(s) - healthy. 1 son(s) , 2 daughter(s) - healthy. . Older son- cerebral palsy. Younger son with Duchenne MD and heart disease. FHx colon cancer, cousin at a young age. * Social History: C URRENT TOBACCO USE: No . C affeine: yes, frequency: daily. Exercise: no. Home smoke detector use: yes. Marital Status: . Occupation: employed. Past smoking status: never smoked. Recreational drug use: no. Alcohol: No. Sexually active: yes. * Medications: T aking B-12 1000 MCG Tablet 1 tab(s) orally once a day , Taking CoQ-10 100 MG Capsule 1 cap(s) orally once a day , Taking Losartan Potassium-HCTZ 100-25 MG Tablet 1 tab(s) orally once a day , Taking Atorvastatin Calcium 10 MG Tablet 1 tab(s) orally once a day , Taking Sildenafil Citrate 50 MG Tablet 1 tablet as needed 1-4 hours before sexual activity Orally Once a day, prn , Not-Taking Zepbound 2.5 MG/0.5ML Solution Auto-injector 2.5 mg Subcutaneous once a week , Discontinued Paxlovid (300/100) 20 x 150 MG & 10 x 100MG Tablet Therapy Pack as directed Orally , Medication List reviewed and reconciled with the patient * Allergies: M axzide-25: hives, combative. Objective: * Vitals: W t:334, Temp:98.2, BP:128/92, HR:58, Nurse:YULIANA, Ht: 71, Repeat BP:128/88, BMI:46.58. * Examination: G eneral Examination: General Appearance: N AD. H EENT: u nremarkable.?Oral cavity: n o lesions, mucosa moist and WNL, no erythema. N katey: s upple, no lymphadenopathy. C hest: n ormal shape and expansion. H eart: R SR. L ungs: c lear to auscultation. A bdomen: bowel sounds present, soft and nontender, no organomegaly or masses, no guarding or rigidity. N eurologic Exam: I ntact, gait normal. S kin: n ormal, no rash. P eripheral pulses: n ormal (2+) bilaterally. E xtremities: n o leg edema. Assessment: * Assessment: 1. E ssential hypertension - I10 (Primary) 2 . M ixed hyperlipidemia - E78.2 3 . O besity, Class III, BMI 40-49.9 (morbid obesity) - E66.01 ?4. G ilberts disease - E80.4 5 . V itamin B12 deficiency - E53.8 & #160; 6 . S creening PSA (prostate specific antigen) - Z12.5 7 . E rectile dysfunction, unspecified erectile dysfunction type - N52.9 Plan: * Treatment: Value Reference Range A /G Ratio 3.0 H 1.1-2.5 - mg/dL * A lbumin 5.1 3.5-5.3 - g/dL * A lkaline Phosphatase 66 40-129 - IU/L * A LT (SGPT) 121 H <5-55 - IU/L * A ST (SGOT) 58 H <5-46 - IU/L * B ilirubin, Total 5.0 H <0.2-1.2 - mg/dL * B UN 11 6-20 - mg/dL * C alcium 9.8 8.6-10.4 - mg/dL * C hloride 101 97-108 - mEq/L * C O2 27 22-32 - mEq/L * C reatinine 0.97 0.70-1.30 - mg/dL * G lucose 108 H 65-99 - mg/dL * P otassium 4.2 3.5-5.3 - mEq/L * S odium 141 135-145 - mEq/L * P rotein 6.8 6.0-8.3 - g/dL * e GFR by Creatinine 96 >59 - mL/min/1.73m2 * Marlen Gresham 07/30/2023 9:32 :28 AM >See phone encounter ?LAB: P-TSH reflex to FT4 (Collection Date & Time - 07/24/2023 08:40 AM)? Normal* Value Reference Range T SH reflex to FT4 1.15 0.43-5.25 - mU/L * Marlen Gresham 07/30/2023 9:32 :28 AM >See phone encounter ?LAB: CBC Venipuncture (in house) (Collection Date & Time - 07/24/2023)* Value Reference Range w bc 6.8 3.5 - 10 * l ymph 30.3 15 - 50 * m id 7.0 2 - 15 * g ran 62.7 35 - 80 * r bc 4.80 3.5 - 5.5 * h gb 14.9 11.5 - 16.5 * h ct 43.9 35 - 55 * m cv 91.4 75 - 100 * m ch 31.0 25 - 35 * m chc 33.9 31 - 38 * p latlet 216 100 - 400 * Martha Eden 07/24/2023 9:52 :26 AM >Kayla Arciniega 07/24/2023 12:44:17 PM > 2.?Mixed hyperlipidemia? Refill Atorvastatin Calcium Tablet, 10 MG, 1 tab(s), orally, once a day, 90 days, 90 Tablet, Refills 3.?LAB: P-Lipid Panel (Collection Date & Time - 07/24/2023 08:40 AM)?tg 202* Value Reference Range C holesterol / HDL Ratio 3.14 0.00-4.99 - Ratio * C holesterol 132 <200 - mg/dL * H DL Cholesterol 42 >39 - mg/dL * L DL Cholesterol (Calculation) 50 <130 - mg/d L * L DL/HDL Ratio 1.2 <3.3 - Ratio * N on-HDL Cholesterol 90 <130 - mg/dL * T riglycerides 202 H <150 - mg/dL * Marlen Gresham 07/30/2023 9:32 :28 AM >See phone encounter 3.?Obesity, Class III, BMI 40-49.9 (morbid obesity)? Notes: Gave samples of contrave to try. He is going to call his insurance and see if it is approved.??4.?Vitamin B12 deficiency?LAB: P-Vitamin B12 (Collection Date & Time - 07/24/2023 08:40 AM)?1957* Value Reference Range V itamin B12 1956 H 232-1245 - pg/mL * Marlen Gresham 07/30/2023 9:32 :28 AM >See phone encounter 5.?Screening PSA (prostate specific antigen)?LAB: P-PSA (Collection Date & Time - 07/24/2023 08:40 AM)?Normal* Value Reference Range P SA 1.25 <4.00 - ng/mL * Marlen Gresham 07/30/2023 9:32 :28 AM >See phone encounter 6.?Erectile dysfunction, unspecified erectile dysfunction type? Stop Sildenafil Citrate Tablet, 50 MG, 1 tablet as needed 1-4 hours before sexual activity, Orally,Once a day, prn;?Start Tadalafil Tablet, 10 MG, 1 tablet as needed, Orally, every 36 hours, prn, 30, Refills 0.?? Notes: Patient would like something that works over a longer period of time.?? * Procedure Codes: 8 5025 CBC WITH AUTO DIFF, 25203 VENIPUNCT, ROUTINE* * Follow Up: v ia phone to report test results * Images: Billing Information: * Visit Code: 95950 Office Visit, Est Pt., Level 4. * Procedure Codes: 62301 CBC WITH AUTO DIFF. 76088 VENIPUNCT, ROUTINE*. * Electronic signature of AIDEN Blackburn on 11/10/2024 at 07:48 AM EDT Sign off status: Pending * Provider: AIDEN Jade Date: 0 07/24/2023 Generated for Lee christensen/Won/eTrananabelleitting on: 0 11/10/2024 07:48 AM EDT History and Physical Notes * HPI (History of Present Illness) Category Sub-Category Detail Notes Category Not es Cardiology Blood Pressure Elevated Pt is he re for a check up and labs. Pt is fasting today. Pt sts that his BP has been high at home with his top number in the 150's and bottom number in the 60's Constitutional Weight gain Pt sts that he h as put some weight back on since not being able to continue taking Zepbound due to insurance. Pt sts that he sometimes has a hard time breathing and feels like his heart is pounding and he feels this is due to him being overweight Examination Category Sub-Category Detail Notes Category Not es General Examination HEENT: unremarkable Heart: RSR Lungs: clear to auscultatio n Abdomen: bowel sounds present , soft and nontender, no organomegaly or masses, no guarding or rigidity Extremities: no leg edema General Appearance: NAD Skin: normal, no rash Neurologic Exam: Intact, gait normal Neck: supple, no lymphaden opathy Oral cavity: no lesions, mucosa m oist and WNL, no erythema Peripheral pulses: normal (2+) bilatera lly Chest: normal shape and exp ansion
--- OUTSIDE RECORDS SUMMARY | 2024-01-15 05:00 | XMS_ITS ---
Author Organization [facility] Address [address] [facility] [address] [place] [id number] Care Team Providers Care J2Ee Developer Name Role Phone Madison Smith Primary Care Provider Kayla Arciniega Unavailable [phone] Allergies Allergen (clinical drug ingredient) Drug/Non Drug Allergy documented on EMR Reaction Allergy Type Onset Date Status Maxzide-25 hives, combative Drug Allergy Active REASON FOR VISIT 6 months Medications Medication SIG (Take, Route, Frequency, Duration) Notes Start Date End Date Status Semaglutide-Weight Management 0.25 MG/0.5ML 10 mL Subcutaneous once a week Active Tadalafil 10 MG 1 tablet as needed O rally every 36 hours, prn Active CoQ-10 100 MG 1 cap(s) orally once a day; Duration: 30 day(s) 08/22/2019 Active Losartan Potassium-HCTZ 100-25 MG 1 tab(s) orally once a day; Duration: 90 days Active B-12 1000 MCG 1 tab(s) orally once a day; Duration: 30 day(s) Active Atorvastatin Calcium 10 MG 1 tab(s) oral ly once a day; Duration: 90 days Active amLODIPine Besylate 5 MG 1 tablet Orally Once a day; Duration: 90 days Active Vital Signs Blood pressure systolic 126 mm Hg 01/15/20 24 Blood pressure diastolic 84 mm Hg 024 Heart Rate 90 /min 01/15/2024 Height 71 in 01/15/2024 Weight 315.6 lbs 01/15/2024 BMI 44.01 kg/m2 01/15/2024 Encounters Encounter Location Date Provider Diagnosis [facility] [address] [facility] [address] [place] [id number] 01/15/2024 Kayla Arciniega Essential hypertensi on I10 ; Mixed hyperlipidemia E78.2 ; Obesity, Class III, BMI 40-49.9 (morbid obesity) E66.01 ; [place] disease E80.4 ; Vitamin B12 deficiency E53.8 and Erectile dysfunction, unspecified erectile dysfunction type N52.9 Assessments Encounter Date Diagnosis (ICD Code) Assessment Notes Treatment Notes Treatment Clinical Notes Section Notes 01/15/2024 Essential hypertension (ICD-10 - I10) Will need a CMP, CBC, and lipid. Will come back fasting. 01/15/2024 Mixed hyperlipidemia (ICD-10 - E78.2) 01/15/2024 Obesity, Class III, BMI 40-49.9 (morbid obesity) (ICD-10 - E66.01) 01/15/2024 [place] disease (ICD-10 - E80.4) 01/15/2024 Vitamin B12 deficiency (ICD-10 - E53.8) 01/15/2024 Erectile dysfunction, unspecified erectile dysfunction type (ICD-10 - N52.9) Patient would like something that works over a longer period of time. Plan Of Treatment Medication Medication Name Sig Start Date Stop Date Notes Tadalafil 10 MG 1 tablet as needed O rally every 36 hours, prn Losartan Potassium-HCTZ 100- 25 MG 1 tab(s) orally once a day; Duration: 90 days Atorvastatin Calcium 10 MG 1 tab(s) oral ly once a day; Duration: 90 days amLODIPine Besylate 5 MG 1 tablet Orally Once a day; Duration: 90 days Treatment Notes Assessment Notes Essential hypertension Will need a CMP, CBC, and lipid. Will come back fasting. Erectile dysfunction, unspec ified erectile dysfunction type Patient would like something that works over a longer period of time. Next Appt Details Follow Up: via phone to repo rt test results, Reason: Progress Notes * SHANKAR ENGLISHDOB:1975 (49 yo M)Acc No.[id number]:01/15/2024 Progress Notes Patient: SHANKAR RAND Provider: AIDEN Jade :1975 A ge:48 Y S ex:Male Date:01/15/2024 Address:[address] [place] [address] LUCY POSADAS, [id number] Pcp:Madison Smith Subjective: * Chief Complaints: * 1 . 6 months. * HPI: C ardiology: Blood Pressure Elevated P t presents today for a 6 month check up. Pt is not fasting today. Pt sts that he has no new concerns or complaints. Pt sts that he needs refills. Pt sts that he has started a semaglutide and is losing weight.. * ROS: D ERMATOLOGY: no R georges. n o H stevo. G ASTROENTEROLOGY: no N ausea. n o V omiting. n o D iarrhea.? U ROLOGY: no D ifficulty urinating. n [...] Sexually active: yes. * Medications: T aking Semaglutide-Weight Management 0.25 MG/0.5ML Solution Auto-injector 10 mL Subcutaneous once a week , Taking B-12 1000 MCG Tablet 1 tab(s) orally once a day , Taking CoQ-10 100 MG Capsule 1 cap(s) orally once a day , Taking amLODIPine Besylate 5 MG Tablet 1 tablet Orally Once a day , Taking Losartan Potassium-HCTZ 100-25 MG Tablet 1 tab(s) orally once a day , Taking Atorvastatin Calcium 10 MG Tablet 1 tab(s) orally once a day , Taking Tadalafil 10 MG Tablet 1 tablet as needed Orally every 36 hours, prn , Medication List reviewed and reconciled with the patient * Allergies: M axzide-25: hives, combative. Objective: * Vitals: W t:315.6, Temp:98.5, BP:126/84, HR:90, Nurse:YULIANA, Ht: 71, BMI:44.01. * Examination: G eneral Examination: General Appearance: [...] deficiency - E53.8 & #160; 6 . E rectile dysfunction, unspecified erectile dysfunction type - N52.9 Plan: * Treatment: 2. M ixed hyperlipidemia Refill Atorvastatin Calcium Tablet, 10 MG, 1 tab(s), orally, once a day, 90 days, 90 Tablet, Refills 3. 3. E rectile dysfunction, unspecified erectile dysfunction type Start Tadalafil Tablet, 10 MG, 1 tablet as needed, Orally, every 36 hours, prn, 30, Refills 5. Notes: Patient would like something that works over a longer period of time. * Follow Up: v ia phone to report test results * Images: Billing Information: * Visit Code: 46241 Office Visit, Est Pt., Level 4. * Procedure Codes: * Electronic signature of AIDEN Blackburn on 11/10/2024 at 07:47 AM EDT Sign off status: Pending * Provider: AIDEN Jade Date: 1 03/16/2023 Generated for Lee christensen/Won/Edwinitting on: 0 11/10/2024 07:47 AM EDT History and Physical Notes * HPI (History of Present Illness) Category Sub-Category Detail Notes Category Not es Cardiology Blood Pressure Elevated Pt prese nts today for a 6 month check up. Pt is not fasting today. Pt sts that he has no new concerns or complaints. Pt sts that he needs refills. Pt sts that he has started a semaglutide and is losing weight. Examination Category Sub-Category Detail Notes Category Not [...]
--- OUTSIDE RECORDS SUMMARY | 2024-11-04 12:15 | XMS_ITS | Encounter Summary ---
Author Organization [facility] Address [address] [place] [address] Care Team Providers Care Edi Manager Name Role Phone Kimo Smith MD Primary Care Provider [phone] Reason for Referral * Consultation (Routine) - Authorized Specialty Diagnoses / Procedures Referred By Contac t Referred To Contact Diagnoses Gilbert's disease Elisabet Knott APRN, DNP [address] [address] Phone: tel: fax: Referral ID Status Reason Start Date Expiration Date V isits Requested Visits Authorized [id number] Authorized 11/04/2024 05/06/2026 1 1 * Consultation (Routine) - Authorized Specialty Diagnoses / Procedures Referred By Contac t Referred To Contact Diagnoses Rectal bleeding Rectal pain Diarrhea, unspecified type Abdominal cramping Abdominal bloating Elisabet Knott APRN, DNP [address] [address] Phone: tel: fax: Referral ID Status Reason Start Date Expiration Date V isits Requested Visits Authorized [id number] Authorized 11/04/2024 05/06/2026 1 1 * Imaging (Routine) - Pending Review Specialty Diagnoses / Procedures Referred By Contac t Referred To Contact Gastroenterology Diagnoses Rectal bleeding Rectal pain Diarrhea, unspecified type Procedures Colonoscopy Elisabet Knott APRN, DNP [address] [facility] [address] [place] [address] Phone: tel: fax: Referral ID Status Reason Start Date Expiration Date Visits Requested Visits Authorized [id number] Pending Review Specialty Services Required 11/04/2024 05/06/2026 1 1 * Genetic Testing (Routine) - Closed Specialty Diagnoses / Procedures Referred By Darien ba Referred To Contact Lab Diagnoses Rectal bleeding Diarrhea, unspecified type Abdominal cramping Abdominal bloating Procedures IgA, Plasma Elisabet Knott APRN, DNP [id number] [place] [address] Phone: tel: fax: Referral ID Status Reason Start Date Expiration Date Visits Re quested Visits Authorized [id number] Closed 11/04/2024 05/06/2026 1 1 Reason for Visit * Reason Comments Gilbert's disease Rectal Bleeding * Consultation (Routine) - Closed Specialty Diagnoses / Procedures Referred By Darien ba Referred To Contact Gastroenterology Diagnoses Gilbert's disease Kimo Smith MD [address] [facility] [address] [place] [address] Phone: tel: fax: Referral ID Status Reason Start Date Expiration Date V isits Requested Visits Authorized [id number] Closed Specialty Services Required 10/04/2024 04/05/2026 1 1 Encounter Details Date Type Department Care Team (Latest Contact Info) Description 11/04/2024 12:15 PM EDT Office Visit [facility] [address] [place] [address] Elisabet Knott APRN, DNP [address] [facility] [address] [place] [address] Gilbert's disease (Primary Dx); Rectal bleeding; Rectal pain; Diarrhea, unspecified type; Abdominal cramping; Abdominal bloating; Secondary bile acid malabsorption Social History Tobacco Use Types Packs/Day Years Used Date Smoking Tobacco: Never Passive Smoke Exposure: Never Smokeless Tobacco: Never Tobacco Cessation:Counseling Given: Not Answered Alcohol Use Standard Drinks/Week Comments Not Currently 0 (1 standard drink = 0.6 oz pur e alcohol) PHQ-2 Answer Date Recorded Patient Health Questionnaire-2 Score 0 11/04/2024 PHQ-9 Answer Date Recorded Patient Health Questionnaire-9 Score 0 11/04/2024 Sex and Gender Information Value Date Recorded Sex Assigned at Male 11/04/2024 3:13 PM EDT Legal Sex Male 9:19 AM EDT Gender Identity Male 11/04/2024 3:13 PM EDT Sexual Orientation Not on file documented as of this encounter Last Filed Vital Signs Vital Sign Reading Time Taken Comments Blood Pressure 128/87 11/04/2024 12:03 PM EDT Pulse 70 11/04/2024 12:03 PM EDT Temperature 36.6 C (97.8 F) 11/04/2024 12:03 PM EDT Respiratory Rate - - Oxygen Saturation 98% 11/04/2024 12:03 PM EDT Inhaled Oxygen Concentration - - Weight 124 kg (273 lb) 11/04/2024 12:03 PM EDT Height 180.3 cm (5' 11 ) 11/04/2024 12:03 PM EDT Body Mass Index 38.08 11/04/2024 12:03 PM EDT documented in this encounter Functional Status * Over the past 2 weeks, how often have you been bothered by any of the following problems? Question Answer Date of Assessment Author Little interest or pleasure in doing things Not at all 11/04/2024 12:09 PM EDT Mariann Gunter A Feeling down, depressed, or hopeless Not at all 11/04/2024 12:09 PM EDT Mariann Gunter A Patient Health Questionnaire -2 Score 0 11/04/2024 12:09 PM EDT Mariann Gunter A * Question Answer Date of Assessment Author Trouble falling or staying asleep, or sleeping too much Not at all 11/04/2024 12:09 PM EDT Gunter, Tempest A Feeling tired or having katie le energy Not at all 11/04/2024 12:09 PM EDT Lyric Tempest A Poor appetite or overeating Not at all 11/04/2024 12 :09 PM EDT Lyric Temtramt A Feeling bad about yourself - or that you are a failure or have let yourself or your family down Not at all 11/04/2024 12:09 PM EDT Fie Mariann ralph A Trouble concentrating on thi ngs, such as reading the newspaper or watching television Not at all 11/04/2024 12:09 PM EDT Vero Guntert A Moving or speaking so slowly that other people could have noticed? Or the opposite - being so fidgety or restless that you have been moving around a lot more than usual. Not at all 11/04/2024 12:09 PM EDT Vero Guntert A Thoughts that you would be better off or hurting yourself in some way Not at all 11/04/2024 12:09 PM EDT Mariann Gunter A Patient Health Questionnaire -9 Score 0 11/04/2024 12:09 PM EDT Mariann Gunter A * If you checked off any problems on this questionnaire so far, Question Answer Date of Assessment Author How difficult have these problems made it for you to do your work, take care of things at home, or get along with other people? Not difficult at all 11/04/2024 12:09 PM EDT Mariann Gunter A documented as of this encounter Plan of Treatment Upcoming Encounters Date Type Department Care Team (Late st Contact Info) Description 12/08/2024 2:30 PM EDT Office Visit [facility] Medicine Specialties [address] [place] [address] Hira Wiggins PA [address] [place] [address] Pending Results Name Type Priority Associated Diagnoses Date /Time Giardia lamblia Antibody, IgG by JOHN Lab Routine Rectal bleeding Diarrhea, unspecified type Abdominal cramping Abdominal bloating 11/04/2024 1:34 PM EDT Scheduled Orders Name Type Priority Associated Diagnoses Orde r Schedule Giardia lamblia Antibody, IgG by JOHN Lab Routine Rectal bleeding Diarrhea, unspecified type Abdominal cramping Abdominal bloating Expected: 11/04/2024 (Approximate), Expires: 05/04/2026 Calprotectin, Fecal by Immunoassay Lab Routine Rectal bleeding Diarrhea, unspecified type Abdominal cramping Abdominal bloating Expected: 11/04/2024 (Approximate), Expires: 05/04/2026 Comprehensive GI Panel by PCR Microbiology Routine Rectal bleeding Diarrhea, unspecified type Abdominal cramping Abdominal bloating Expected: 11/04/2024 (Approximate), Expires: 05/04/2026 Ova and Parasite Exam, Fecal Microbiology Routine Rectal bleeding Diarrhea, unspecified type Abdominal cramping Abdominal bloating Expected: 11/04/2024 (Approximate), Expires: 05/04/2026 Pancreatic elastase, fecal Lab Routine Diarrhea, unspecified type Abdominal cramping Abdominal bloating Expected: 11/04/2024 (Approximate), Expires: 05/04/2026 Colonoscopy Endoscopy Routine Rectal bleeding Rectal pain Diarrhea, unspecified type Expected: 11/04/2024 (Approximate), Expires: 11/04/2025 Scheduled Referrals Name Type Priority Associated Diagnoses Orde r Schedule Follow Up GI Outpatient Referral Routine Rectal bleeding Rectal pain Diarrhea, unspecified type Abdominal cramping Abdominal bloating Expected: 02/03/2025 (Approximate), Expires: 12/04/2025 Follow Up GI Outpatient Referral Routine Gilbert's disease Expected: 12/02/2024 (Approximate), Expires: 12/04/2025 documented as of this encounter Results * (ABNORMAL) Conjugated Bilirubin, Plasma (11/04/2024 1:34 PM EDT) Conjugated Bilirubin, Plasma 0.6(H) <=0.3 mg/dL 11/04/2024 3:32 PM EDT [facility] Blood Venous blood specimen / Unknown Venipuncture / Unknown 11/04/2024 1:34 PM EDT 11/04/2024 1:34 PM EDT us Elisabet Knott SHOP CLERK, DNP LAB BLOOD ORDERABLES F inal Result [facility] [address] [place] [address] * C-Reactive Protein, Plasma (11/04/2024 1:34 PM EDT) CRP, Plasma <3.0 <=8.0 mg/L 11/04/2024 3:32 PM EDT [facility] Blood Venous blood specimen / Unknown Venipuncture / Unknown 11/04/2024 1:34 PM EDT 11/04/2024 1:34 PM EDT Narrative [facility] - 11/04/2024 3:32 PM EDT This CRP test is appropriate for assessment of infection, systemic inflammation and/or tissue injury. To assess cardiovascular disease risk order high sensitivity CRP (CRPH). Elisabet Knott SHOP CLERK, DNP LAB BLOOD ORDERABLES F inal Result Performing Organization Address [facility] Co de Phone Number [facility] [address] [place] [address] * Tissue Transglutaminase (tTG) Ab, IgA (SO) (11/04/2024 1:34 PM EDT) Tissue Transglutaminase (tTG) Ab, IgA <1.02 0.00 - 4.99 FLU 11/06/2024 10:26 PM EDT [facility] ([facility]) Blood Venous blood specimen / Unknown Venipuncture / Unknown 11/04/2024 1:34 PM EDT 11/04/2024 1:34 PM EDT Narrative [facility] ([facility]) - 11/06/2024 10:26 PM EDT INTERPRETIVE INFORMATION: Tissue Transglutaminase (tTG) Antibody, IgA Presence of the tissue transglutaminase (tTG) IgA antibody is associated with gluten-sensitive enteropathies such as celiac disease and dermatitis herpetiformis. Individuals with positive results should be confirmed with small intestinal biopsy to establish celiac disease diagnosis. tTG IgA antibody concentrations greater than 50 FLU exhibits higher correlation with results of duodenal biopsies consistent with celiac disease. For antibody concentrations greater than or equal to 5 FLU but less than 10 FLU, additional testing for endomysial (KI) IgA concentrations may improve the positive predictive value for disease. A decrease in tTG IgA antibody concentration after initiation of a gluten-free diet may indicate a response to therapy. Performed By: [facility] [address] [place] [id number] Applied Computer Science Professor: Irvin Cohen MD, PhD CLIA Number: [id number] Elisabet Knott APRN, DNP LAB REF LAB BLOOD AND FLUID ORD Final Result Performing Organization Address City/[facility]/ZIP Co de Phone Number [facility] ([facility]) [address] [place] [address] * (ABNORMAL) IgA, Plasma (11/04/2024 1:34 PM EDT) IGA 60(L) 75 - 400 mg/dL 11/04/2024 3:32 PM EDT [facility] Blood Venous blood specimen / Unknown Venipuncture / Unknown 11/04/2024 1:34 PM EDT 11/04/2024 1:34 PM EDT Elisabet Knott APRN, DELIO LAB BLOOD ORDERABLES F inal Result Performing Organization Address City/[facility]/ZIP Co de Phone Number [facility] [address] [place] [address] * Thyroid Stimulating Hormone, Plasma (11/04/2024 1:34 PM EDT) [facility] Thyroid Stimulating Hormone, Plasma 1.33 0.40 - 4.20 uIU/mL 11/04/2024 3:32 PM EDT [facility] Blood Venous blood specimen / Unknown Venipuncture / Unknown 11/04/2024 1:34 PM EDT 11/04/2024 1:34 PM EDT Result [facility] Elisabet Knott APRN, DELIO LAB BLOOD ORDERABLES F inal Result Performing Organization Address City/[facility]/ZIP Co de Phone Number [facility] [address] [place] [address] * Strongyloides Antibody (11/04/2024 1:34 PM EDT) Pathologist [facility] Strongyloides Antibody, IgG By JOHN 0.3 <=0.9 IV 11/07/2024 10:32 PM EDT [facility] ([facility]) Serum Venous blood specimen / Unknown 11/04/2024 1:34 PM EDT 11/04/2024 1:34 PM EDT Narrative [facility] ([facility]) - 11/07/2024 10:32 PM EDT INTERPRETIVE INFORMATION: Strongyloides Ab, IgG by JOHN 0.9 IV or less....... Negative - No significant level of Strongyloides IgG antibody detected. 1.0 IV................Equivocal - The Strongyloides IgG antibody result is borderline and therefore inconclusive. Recommend retesting the patient in 2-4 weeks, if clinically indicated. 1.1 IV or greater ... Positive - IgG antibodies to Strongyloides detected, which may suggest current or past infection. False-positive results may occur with prior exposure to other helminth infections. Testing low-prevalence populations may also result in false-positive results. Performed By: [facility] [address] [place] [address] Applied Computer Science Professor: Irvin Cohen MD, PhD CLIA Number: [id number] Elisabet Knott APRN, DNP LAB BLOOD ORDERABLES F inal Result [facility]) [address] [place] [address] * Allergen, Food, Alpha-Gal ([id number]-5,3-galatose) Panel (SO) (11/04/2024 1:34 PM EDT) Allergen, Food, Beef IgE <0.10 <=0.34 kU/L 11/06/2024 5:53 PM EDT [facility] ([facility]) Allergen, Food, Olson IgE <0.10 <=0.34 kU/L 11/06/2024 5:53 PM EDT [facility] ([facility]) Allergen, Food, Pork IgE <0.10 <=0.34 kU/L 11/06/2024 5:53 PM EDT [facility] ([facility]) Allergen, Food, Alpha-Gal, IgE <0.10 <=0.09 kU/L 11/06/2024 5:53 PM EDT [facility]) Blood Venous blood specimen / Unknown Venipuncture / Unknown 11/04/2024 1:34 PM EDT 11/04/2024 1:34 PM EDT Narrative [facility]) - 11/06/2024 5:53 PM EDT INTERPRETIVE INFORMATION: Allergen, Food, Alpha-Gal, IgE Allergen results of 0.10-0.34 kU/L are intended for specialist use as the clinical relevance is undetermined. Even though increasing ranges are reflective of increasing concentrations of allergen-specific IgE, these concentrations may not correlate with the degree of clinical response or skin testing results when challenged with a specific allergen. The correlation of allergy laboratory results with clinical history and in vivo reactivity to specific allergens is essential. A negative test may not rule out clinical allergy or even anaphylaxis. Performed By: [facility] [address] [place] [id number] Applied Computer Science Professor: Irvin Cohen MD, PhD CLIA Number: [id number] Elisabet Knott APRN, DELIO LAB REF LAB BLOOD AND FLUID ORD Final Result Performing Organization Address City/[facility]/ZIP Co de Phone Number [facility]) [address] [place] [phone] * (ABNORMAL) Lipase, Plasma (11/04/2024 1:34 PM EDT) Lipase, Plasma 73(H) 19 - 63 U/L 11/04/2024 3:32 PM EDT [facility] Blood Venous blood specimen / Unknown Venipuncture / Unknown 11/04/2024 1:34 PM EDT 11/04/2024 1:34 PM EDT Elisabet Knott APRN, DNP LAB BLOOD ORDERABLES F inal Result [facility] [address] [place] [address] * (ABNORMAL) Comprehensive Metabolic Panel, Plasma (11/04/2024 1:34 PM EDT) [facility] Glucose, Plasma 101(H) 74 - 99 mg/dL 11/04/2024 3:32 PM EDT [facility] BUN, Plasma 12 7 - 21 mg/dL 11/04/2024 3:32 PM EDT [facility] Creatinine, Plasma 0.91 0.70 - 1.20 mg/dL 11/04/2024 3:32 PM EDT [facility] BUN/Creatinine Ratio 13 11/04/2024 3:32 PM EDT [facility] Sodium, Plasma 144 136 - 145 mmol/L 11/04/2024 3:32 PM EDT [facility] Potassium, Plasma 3.9 3.6 - 4.9 mmol/L 11/04/2024 3:32 PM EDT [facility] Chloride, Plasma 101 97 - 107 mmol/L 11/04/2024 3:32 PM EDT [facility] CO2, Plasma 29 22 - 29 mmol/L 11/04/2024 3:32 PM EDT [facility] Anion Gap 14 6 - 16 mmol/L 11/04/2024 3:32 PM EDT [facility] Total Calcium, Plasma 10.1 8.9 - 10.2 mg/dL 11/04/2024 3:32 PM EDT [facility] Total Protein 7.2 6.3 - 7.9 g/dL 11/04/2024 3:32 PM EDT [facility] Albumin, Plasma 5.0 3.5 - 5.2 g/dL 11/04/2024 3:32 PM EDT [facility] AST, Plasma 18 10 - 50 U/L 11/04/2024 3:32 PM EDT [facility] ALT, Plasma 27 10 - 50 U/L 11/04/2024 3:32 PM EDT [facility] Alkaline Phosphatase, Plasma 65 40 - 115 U/L 11/04/2024 3:32 PM EDT [facility] Total Bilirubin, Plasma 4.6(H) 0.2 - 1.1 mg/dL 11/04/2024 3:32 PM EDT [facility] eGFRcr 102.7 mL/min/1.7 3m*2 11/04/2024 3:32 PM EDT [facility] Comment:Reported eGFRcr in m L/min/1.73m2 is based the CKD-EPI 2020 equation that does not use a race coefficient. Blood Venous blood specimen / Unknown Venipuncture / Unknown 11/04/2024 1:34 PM EDT 11/04/2024 1:34 PM EDT Elisabet Knott SHOP CLERK, DNP LAB BLOOD ORDERABLES F inal Result [facility] [address] [place] [address] * CBC W/O Differential (11/04/2024 1:34 PM EDT) WBC Count 7.36 3.70 - 10.30 10*3/uL LAB HEMATOLOGY METHOD 11/04/2024 3:33 PM EDT [facility] RBC Count 4.64 4.60 - 6.10 10*6/uL LAB HEMATOLOGY METHOD 11/04/2024 3:33 PM EDT [facility] HGB 14.3 13.7 - 17.5 g/dL LAB HEMATOLOGY METHOD 11/04/2024 3:33 PM EDT [facility] HCT 41.1 40.0 - 51.0 % LAB HEMATOLOGY METHOD 11/04/2024 3:33 PM EDT [facility] Platelet Count 271 155 - 369 10*3/uL LAB HEMATOLOGY METHOD 11/04/2024 3:33 PM EDT [facility] MCV 89 79 - 98 fL LAB HEMATOLOGY METHOD 11/04/2024 3:33 PM EDT [facility] MCH 30.8 26.0 - 32.0 pg LAB HEMATOLOGY METHOD 11/04/2024 3:33 PM EDT [facility] MCHC 34.8 30.7 - 35.5 g/dL LAB HEMATOLOGY METHOD 11/04/2024 3:33 PM EDT [facility] RDW 13.2 11.5 - 14.5 % LAB HEMATOLOGY METHOD 11/04/2024 3:33 PM EDT [facility] MPV 10.6 8.8 - 12.5 fL LAB HEMATOLOGY METHOD 11/04/2024 3:33 PM EDT [facility] nRBC 0.0 <=0.0 per 100 WBCs LAB HEMATOLOGY METHOD 11/04/2024 3:33 PM EDT [facility] Blood Venous blood specimen / Unknown Venipuncture / Unknown 11/04/2024 1:34 PM EDT 11/04/2024 1:34 PM EDT Elisabet Knott SHOP CLERK, DNP LAB BLOOD ORDERABLES F inal Result [facility] [address] [place] [address] documented in this encounter Visit Diagnoses Diagnosis Gilbert's disease- Primary Disorders of bilirubin excretion Rectal bleeding Hemorrhage of rectum and anus Rectal pain Anal or rectal pain Diarrhea, unspecified type Abdominal cramping Abdominal pain, unspecified site Abdominal bloating Flatulence, eructation, and gas pain Secondary bile acid malabsorption documented in this encounter Additional Health Concerns Assessment Noted Time PHQ-9 Depression Total Score: 0 11/05/19 12:09 PM EDT A fall risk assessment has been complete d for the patient 11/04/2024 12:09 PM EDT documented as of this encounter Care Teams Edi Manager Relationship Specialty Start Date End Date Kimo Smith MD [address] [place] [address] PCP - General 11/04/24 documented as of this encounter
--- OUTSIDE RECORDS SUMMARY | 2024-11-10 07:48 | XMS_ITS | Clinical Summary ---
Author Organization [facility] Address [address] [place] [address] Care Team Providers Care Wildlife Veterinarian Name Role Phone Provider, No Known Primary Care Provider Unavail able Social History Tobacco Use Types Packs/Day Years Used Date Smoking Tobacco: Never Assessed Abuse Screen Answer Date Recorded Unsafe at Home or Work/School Not on file Feels Threatened by Someone? Not on file 12/2022 Does Anyone Keep You from Co ntacting Others or Doint Things Outside the Home? Not on file 12/10/2022 Physical Sign of Abuse Present Not on file 1 Housing Stability Answer Date Recorded Current Living Arrangements Not on file 11/30 Potentially Unsafe Housing Conditions Not on lily e 12/10/2022 Family and Community Support Answer Quang e Recorded Help with Day-to-Day Activities Not on file 12/10/2022 Lonely or Isolated Not on file 12/10/2022 Employment Answer Date Recorded Do you want help finding or keeping work or a arcenio b? Not on file 12/10/2022 Disabilities Answer Date Recorded Concentrating, Remembering, or Making Decisions Difficulty Not on file 12/10/2022 Doing Errands Independently Difficulty Not on fi le 12/10/2022 Education Answer Date Recorded Help with school or training? Not on file Preferred Language Not on file 12/10/2022 Sex and Gender Information Value Date Recorded Sex Assigned at Not on file Legal Sex Male 10:23 AM EST Gender Identity Not on file Sexual Orientation Not on file Plan of Treatment Health Maintenance Due Date Last Done Comments ANNUAL PHYSICAL 1974 HEPATITIS C SCREENING 1974 TDAP/TD VACCINES (1 - Tdap) 1993 COLOGUARD 05/13/2019 COLON CANCER SCREENING 5 YEAR SIGMOIDOSCOPY 05/13/2019 COLONOSCOPY 05/13/2019 COLORECTAL CANCER SCREENING 05/13/2019 CT COLONOGRAPHY 05/13/2019 FECAL OCCULT BLOOD TEST 05/13/2019 FIT Testing (1 year) 05/13/2019 Pneumococcal Vaccine 50+ (1 of 1 - PCV) 2024 ZOSTER VACCINE (1 of 2) 2024 COVID-19 Vaccine (1 - 2023- season) 2024 INFLUENZA VACCINE 11/30/2024 Care Teams Wildlife Veterinarian Relationship Specialty Start Date End Date Provider, No Known [facility] [place] [address] PCP - General 03/22/15
--- OUTSIDE RECORDS SUMMARY | 2024-11-10 07:48 | XMS_ITS | Patient Health Record ---
[facility] [address] [place] [id number] Care Team Providers Care Boiler Maker Name Role Phone Madison Smith Primary Care Provider [phone] Kayla Arciniega Unavailable [phone] Allergies Allergen (clinical drug ingredient) Drug/Non Drug Allergy documented on EMR Reaction Allergy Type Onset Date Status Maxzide-25 hives, combative Drug Allergy Active Reason For Referral Reason Patient requests to see Hadley Puga at Diagnosis 1 [place] disease (E8 0.4) [facility] Referring Provider First Name Madison Rawls Referring Provider Last Name Luis Referring Provider Speciality Family Pra ct[facility] Referred Provider Specialty Gastroentero logy General Notes [place] 2024 09:52:23 AM > faxed to [facility] (AIDEN Bardales) Referral Priority Routine Medications Medication SIG (Take, Route, Frequency, Duration) Notes Start Date End Date Status Semaglutide-Weight Management 0.25 MG/0.5ML 10 mL Subcutaneous once a week Active Atorvastatin Calcium 10 MG 1 tab(s) oral ly once a day; Duration: 90 days Active Tadalafil 10 MG 1 tablet as needed O rally every 36 hours, prn Active CoQ-10 100 MG 1 cap(s) orally once a day; Duration: 30 day(s) 08/22/2019 Active Losartan Potassium-HCTZ 100-25 MG 1 tab(s) orally once a day; Duration: 90 days Active B-12 1000 MCG 1 tab(s) orally once a day; Duration: 30 day(s) Active amLODIPine Besylate 5 MG 1 tablet Orally Once a day; Duration: 90 days Active Problems Problem Type SNOMED Code ICD Code Onset Dates Problem Status W/U Status Risk Notes Problem Essential hypertension (32774074) Essential (primary) hypertension (I10) Active confirmed Problem Essential hypertension (85897250) Essential hypertension (I10) Active confirmed Problem Body mass index 40+ - severely obese (529822696) BMI 45.0-49.9, adult (Z68.42) Active confirmed Problem Morbid obesity (disorder) (222657764) Morbid (severe) obesity due to excess calories (E66.01) Active confirmed Problem Mixed hyperlipidemia (132886617) Mixed hyperlipidemia (E78.2) Active confirmed Problem Mixed bipolar affective disorder, moderate (014738913) Bipolar disorder, current episode mixed, moderate (F31.62) Active confirmed Problem Cholelithiasis without obstruction (11121895) Calculus of gallbladder without cholecystitis without obstruction (K80.20) Active confirmed Problem Sciatica (86157086) Sciatica of right side (M54.31) Active confirmed Problem Morbid obesity (744271255) Obesity, Class III, BMI 40-49.9 (morbid obesity) (E66.01) Active confirmed Problem Erectile dysfunction (disorder) (472636253) Erectile dysfunction, unspecified erectile dysfunction type (N52.9) Active confirmed Problem Body mass index 40+ - morbidly obese (403063759) BMI 40.0-44.9, adult (Z68.41) Active confirmed Problem Dyslipidemia (647857487) Dyslipidemia (E78.5) Active confirmed Problem Gilbert's syndrome (64839575) Gilbert's syndrome (E80.4) Active confirmed Problem Osteoarthritis of knee (830805353) Arthropathy of knee (M17.10) Active confirmed Problem 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) Active confirmed Problem COVID-19 (634149776) COVID-19 (U07.1) Active confirmed Problem Body mass index 40+ - severely obese (369774048) Body mass index [BMI] 45.0-49.9, adult (Z68.42) Active confirmed Problem Pneumonia caused by Severe acute respiratory syndrome coronavirus (disorder) (876432719) Pneumonia due to Coronavirus disease 2019 (J12.82) Active confirmed Problem Body mass index 40+ - severely obese (213378017) Body mass index [BMI] 40.0-44.9, adult (Z68.41) Active confirmed Vital Signs Heart Rate 90 /min 01/15/2024 Blood pressure diastolic 84 mm Hg 01/15/2024 Height 71 in 01/15/2024 Blood pressure systolic 126 mm Hg 01/15/2024 Weight 315.6 lbs 01/15/2024 BMI 44.01 kg/m2 01/15/2024 Encounters Encounter Location Date Provider Diagnosis [facility] [address] [place] [id number] 01/15/2024 Kayla Arciniega Essential hypertensi on I10 ; Mixed hyperlipidemia E78.2 ; Obesity, Class III, BMI 40-49.9 (morbid obesity) E66.01 ; [place] disease E80.4 ; Vitamin B12 deficiency E53.8 and Erectile dysfunction, unspecified erectile dysfunction type N52.9 [facility] [address] [place] [id number] 11/24/2023 Madison Smith Erectile dysfunction , unspecified erectile dysfunction type N52.9 [facility] [address] [place] [id number] 09/29/2024 Madison Smith Assessments Encounter Date Diagnosis (ICD Code) Assessment Notes Treatment Notes Treatment Clinical Notes Section Notes 01/15/2024 Essential hypertension (ICD-10 - I10) Will need a CMP, CBC, and lipid. Will come back fasting. 01/15/2024 Mixed hyperlipidemia (ICD-10 - E78.2) 11/24/2023 Erectile dysfunction, unspecified erectile dysfunction type (ICD-10 - N52.9) 01/15/2024 Obesity, Class III, BMI 40-49.9 (morbid obesity) (ICD-10 - E66.01) 01/15/2024 [place] disease (ICD-10 - E80.4) 01/15/2024 Vitamin B12 deficiency (ICD-10 - E53.8) 01/15/2024 Erectile dysfunction, unspecified erectile dysfunction type (ICD-10 - N52.9) Patient would like something that works over a longer period of time. Plan Of Treatment Pending Test Test Name Order Date P-Vitamin B12 03/07/2022 P-Comprehensive Metabolic Panel (CMP) P-PSA 03/07/2022 P-TSH reflex to FT4 03/07/2022 P-Vitamin D 25-Hydroxy 03/07/2022 Insurance Providers Payer Name Payer Address Payer Phone Subscriber Number Group Number Insured Name Patient Relationship to Insured Coverage Start Date Coverage End Date [facility] [address] [address] [place], [place] [id number] SHANKAR ENGLISH Self - patient is the insured Medical (General) History Medical History History ICD Code Gilbert's syndrome HBP HLP COVID 19 11/2020 Surgical History Surgery Date(Month/Year) Left knee surgery 1993 T5-T6 spinal fusion 2015 Hospitalization History Reason Date(Month/Year) covid 12/17/2020
--- OUTSIDE RECORDS SUMMARY | 2024-11-10 07:48 | XMS_ITS | Encounter Summary ---
Author Organization Healthcare Address [address] [place] [address] Care Team Providers Care Tin Pot Operator Name Role Phone Unavailable Primary Care Provider Unavailabl e Encounter Details Date Type Department Care Team (Late st Contact Info) Description 10/10/2024 [facility]phone [facility] [address] [place] [address] Hadley Puga PA [address] [place] [address] Social History Tobacco Use Types Packs/Day Years Used Date Smoking Tobacco: Never Assessed Sex and Gender Information Value Date Recorded Sex Assigned at Male 11/04/2024 3:13 PM EDT Legal Sex Male 9:19 AM EDT Gender Identity Male 11/04/2024 3:13 PM EDT Sexual Orientation Not on file documented as of this encounter Miscellaneous Notes * Telephone Encounter - Shauna Barbosa - 10/21/2024 2:39 PM EDT Status Update Call #1 1st call regarding the status of the initial request. Best contact number: Other: [phone] Optimal time of day to reach caller: ANYTIME Additional comments/information from caller: None Note: Please do not reply to this message. Follow-up communication and further actions as a result of this message need to be communicated with the patient directly, if the patient is not active onMyChart. If the patient is active on MyChart, they will receive notification of the communication/outcome via RegistryLovet. * Telephone Encounter - Holly Rubin - 10/10/2024 9:00 AM EDT Clinical Concern/Question Reason for Call: patient calling patient has a referral for [facility], and also has hemorrhoids and would prefer to see Hadley Puga if possible requesting call back Best contact number: Other: [phone] Optimal time of day to reach caller: ANYTIME Additional comments/information from caller: None Note: Please do not reply to this message. Follow-up communication and further actions as a result of this message need to be communicated with the patient directly, if the patient is not active onMyChart. If the patient is active on MyChart, they will receive notification of the communication/outcome via NextWidgets. documented in this encounter Plan of Treatment Upcoming Encounters Date Type Department Care Team (Late st Contact Info) Description 12/08/2024 2:30 PM EDT Office Visit [facility] Medicine Specialties [address] [place] [address] Hira Wiggins PA [address] [place] [address] documented as of this encounter Visit Diagnoses Not on filedocumented in this encounter
--- OUTSIDE RECORDS SUMMARY | 2024-11-10 07:48 | XMS_ITS | Clinical Summary ---
Author Organization [facility] Address [address] [place] [address] Care Team Providers Care Knife Setter Grinder Machine Name Role Phone Kimo Smith MD Primary Care Provider [phone] Allergies Active Allergy Reactions Criticality Noted Date Comments Triamterene-Hctz Hives Medium 11/04/2024 - makes patient combative Medications Semaglutide-Weigh t Management (Wegovy) 0.25 MG/0.5ML solution auto-injector 10 mL Subcutaneous once a week Active atorvastatin (Lipitor) 10 MG tablet 1 (one) time each day at the same time. Active losartan-hydroCHL OROthiazide (Hyzaar) 100-25 MG tablet 1 (one) time each day at the same time. Active tadalafil (Cialis) 10 MG tablet Take 1 tablet by mouth. Active colestipol (Colestid) 1 g tabletIndications :Diarrhea, unspecified type,Abdominal cramping,Abdomina l bloating,Secondar y bile acid malabsorption Take 1 tablet by mouth 2 times a day after meals. Take at least 1 hour after or 4 hours before other medications. 60 tablet 3 11/05/19 25 Active dicyclomine (Bentyl) 10 MG capsuleIndication s:Diarrhea, unspecified type,Abdominal cramping,Abdomina l bloating Take 1 capsule by mouth 4 times a day as needed (Abdominal Pain). 60 capsule 2 11/05/19 25 Active hydrocortisone (Anusol-HC) 25 MG suppositoryIndica tions:Hemorrhoids Insert 1 suppository into the rectum 2 times a day for 7 days. 14 suppository 11/05/19 25 025 Active lidocaine (Xylocaine) 5 % ointmentIndicatio ns:Rectal bleeding,Rectal pain Apply topically to affected area TID PRN 50 g 11/05/19 25 Active Active Problems No known active problems Encounters Date Type Department Care Team Description 11/04/2024 12:15 PM EDT Office Visit [facility] Medicine Specialties [address] [place] [address] Elisabet Knott APRN, DELIO Gilbert's disease (Primary Dx); Rectal bleeding; Rectal pain; Diarrhea, unspecified type; Abdominal cramping; Abdominal bloating; Secondary bile acid malabsorption 11/04/2024 Travel 10/10/2024 Telephone [facility] Medicine Specialties 0 [facility], [address] [place] [address] Hadley Puga PA from Last 3 Months Social History Tobacco Use Types Packs/Day Years [...] PM EDT Sexual Orientation Not on file Last Filed Vital Signs Vital Sign Reading [...] Mass Index 38.08 11/04/2024 12:03 PM EDT Plan of Treatment Upcoming Encounters Date Type Department Care Team (Late st Contact Info) Description 12/08/2024 2:30 PM EDT Office Visit [facility] Medicine Specialties [address] [place] [address] Hira Wiggins PA [address] [place] [address] Health Maintenance Due Date Last Done Comments [facility]-HIV Screening 1974 [facility]-Hepatitis C Screening 1974 [facility]-/Child/Adol SDOH Screenings 1974 [facility]-Obesity Intervention 1980 [facility]- SDOH Screenings 1992 [facility]-Adult SDOH Screenings 1992 [facility]-DTaP,Tdap,and Td Vaccine s (1 - Tdap) 1993 [facility]-Hepatitis B Vaccines (1 of 3 - 19+ 3-dose series) 1993 CT Colonography 05/13/2019 Colonoscopy 05/13/2019 FIT-DNA 05/13/2019 FIT 05/13/2019 FOBT 05/13/2019 Sigmoidoscopy 05/13/2019 [facility]-Colorectal Cancer Screening 05/13/2019 [facility]-Pneumococcal Vaccine: 50 + Years (1 of 1 - PCV) 2024 [facility]-Zoster Vaccines (1 of 2) 2024 [facility]-81 Vaccine (1 - season) 2024 [facility]-Influenza Vaccine (#1) 2024 [facility]-Depression Screening 11/04/2025 025, 11/04/2024 HPV Vaccines Aged Out No longer eligi ble based on patient's age to complete this topic [facility]-HIB Vaccines Aged Out No longer e ligible based on patient's age to complete this topic [facility]-Hepatitis A Vaccines Aged Out No longer eligible based on patient's age to complete this topic [facility]-IPV Vaccines Aged Out No longer e ligible based on patient's age to complete this topic [facility]-Rotavirus Vaccines Aged Out No lo nger eligible based on patient's age to complete this topic Procedures Procedure Name Priority Date/Time Associated Diagnosis Comments ALLERGEN INTERPETATION Routine 1:34 PM EDT Rectal bleeding Diarrhea, unspecified type Abdominal cramping Abdominal bloating CBC W/O DIFFERENTIAL Routine 11/04/2024 1:34 PM EDT Rectal bleeding Diarrhea, unspecified type COMPREHENSIVE METABOLIC PANEL, PLASMA Routine 11/04/2024 1:34 PM EDT Gilbert's disease Diarrhea, unspecified type LIPASE, PLASMA Routine 11/04/2024 1:34 PM EDT Diarrhea, unspecified type Abdominal cramping Abdominal bloating ALLERGEN, FOOD, ALPHA-GAL (LEBWTDYEH-GRZBP-2,3-GAL ATOSE) PANEL (SO) Routine 11/04/2024 1:34 PM EDT Rectal bleeding Diarrhea, unspecified type Abdominal cramping Abdominal bloating STRONGYLOIDES ANTIBODY, IGG BY JOHN, SERUM (SO) Routine 11/04/2024 1:34 PM EDT Rectal bleeding Diarrhea, unspecified type Abdominal cramping Abdominal bloating TSH Routine 11/04/2024 1:34 PM EDT Diarrhea, unspecified type IGA, PLASMA Routine 11/04/2024 1:34 PM EDT Rectal bleeding Diarrhea, unspecified type Abdominal cramping Abdominal bloating TISSUE TRANSGLUTAMINASE (TTG) AB, IGA (SO) Routine 11/04/2024 1:34 PM EDT Rectal bleeding Diarrhea, unspecified type Abdominal cramping Abdominal bloating C-REACTIVE PROTEIN, PLASMA Routine 11/04/2024 1:34 PM EDT Rectal bleeding Diarrhea, unspecified type Abdominal cramping Abdominal bloating CONJUGATED BILIRUBIN, PLASMA Routine 11/04/2024 1:34 PM EDT Gilbert's disease from Last 3 Months Results * Tissue Transglutaminase (tTG) Ab, IgA (SO) (11/04/2024 1:34 PM EDT) Tissue Transglutaminase (tTG) Ab, IgA <1.02 0.00 - 4.99 FLU 11/06/2024 10:26 PM EDT [facility] ([facility]) Blood Venous blood specimen / Unknown Venipuncture / Unknown 11/04/2024 1:34 PM EDT 11/04/2024 1:34 PM EDT Narrative [facility]) - 11/06/2024 10:26 PM EDT INTERPRETIVE INFORMATION: [...] indicate a response to therapy. Performed By: [facility] [address] [place] [address] Actuary Clerk: Irvin Cohen MD, PhD CLIA Number: [id number] Elisabet Knott APRN, DNP LAB REF LAB BLOOD AND FLUID ORD Final Result [facility] [employer]) [address] [phone] * Allergen, Food, Alpha-Gal (qzpddiwao-axhmp-4,3-galatose) Panel (SO) (11/04/2024 1:34 PM EDT) Allergen, Food, Beef IgE <0.10 <=0.34 kU/L 11/06/2024 5:53 PM EDT [facility] ([facility]) Allergen, Food, Olson IgE <0.10 <=0.34 kU/L 11/06/2024 5:53 PM EDT [facility] ([facility]) Allergen, Food, Pork IgE <0.10 <=0.34 kU/L 11/06/2024 5:53 PM EDT [facility] ([facility]) Allergen, Food, Alpha-Gal, IgE <0.10 <=0.09 kU/L 11/06/2024 5:53 PM EDT [facility] ([facility]) Blood Venous blood specimen / Unknown Venipuncture / Unknown 11/04/2024 1:34 PM EDT 11/04/2024 1:34 PM EDT Narrative [facility] ([facility]) - 11/06/2024 5:53 PM EDT INTERPRETIVE INFORMATION: [...] clinical allergy or even anaphylaxis. Performed By: [facility] [address] [place] [address] Actuary Clerk: Irvin Cohen MD, PhD CLIA Number: [id number] Elisabet Knott APRN, DNP LAB REF LAB BLOOD AND FLUID ORD Final Result [facility] ([facility]) [address] [place] [id number] * Allergen Interpretation (11/04/2024 1:34 PM EDT) Immunocap Score IgE See Note 11/06/2024 5:54 PM EDT [facility] ([facility]) Blood Venous blood specimen / Unknown Venipuncture / Unknown 11/04/2024 1:34 PM EDT 11/04/2024 1:34 PM EDT Narrative [facility] ([facility]) - 11/06/2024 5:54 PM EDT REFERENCE INTERVAL: Allergen, Interpretation Less than 0.10 kU/L......Class 0.....No significant level detected 0.10-0.34 kU/L...........Class 0/1...Clinical relevance undetermined 0.35-0.70 kU/L...........Class 1.....Low 0.71-3.50 kU/L...........Class 2.....Moderate 3.51-17.50 kU/L..........Class 3.....High 17.51-50.00 kU/L.........Class 4.....Very High 50.01-100.00 kU/L........Class 5.....Very High Greater than 100.00kU/L..Class 6.....Very High Allergen results of 0.10-0.34 kU/L are intended [...] clinical allergy or even anaphylaxis. Performed By: [facility] [address] [place] [address] Actuary Clerk: Irvin Cohen MD, PhD CLIA Number: [id number] Elisabet Knott APRN, DNP LAB BLOOD ORDERABLES F inal Result [employer] [facility]) [address] [place] [address] * Strongyloides Antibody (11/04/2024 1:34 PM EDT) Strongyloides Antibody, IgG By JOHN 0.3 <=0.9 IV 11/07/2024 10:32 PM EDT [employer] ([employer]) Serum Venous blood specimen / Unknown 11/04/2024 1:34 PM EDT 11/04/2024 1:34 PM EDT Narrative [facility] ([facility]) - 11/07/2024 10:32 PM EDT INTERPRETIVE INFORMATION: [...] also result in false-positive results. Performed By: [facility] [address] [place] [address] Actuary Clerk: Irvin Cohen MD, PhD CLIA Number: [id number] Elisabet Knott APRN, DNP LAB BLOOD ORDERABLES F inal Result [facility] ([facility]) [address] [phone] * CBC W/O Differential (11/04/2024 1:34 PM EDT) WBC Count 7.36 3.70 - 10.30 10*3/uL LAB HEMATOLOGY METHOD 11/04/2024 3:33 PM EDT [facility] RBC Count 4.64 4.60 - 6.10 10*6/uL LAB HEMATOLOGY METHOD 11/04/2024 3:33 PM EDT [facility] HGB 14.3 13.7 - 17.5 g/dL LAB HEMATOLOGY METHOD 11/04/2024 3:33 PM EDT [facility] HCT 41.1 40.0 - 51.0 % LAB HEMATOLOGY METHOD 11/04/2024 3:33 PM EDT [facility] Platelet Count 271 155 - 369 10*3/uL LAB HEMATOLOGY METHOD 11/04/2024 3:33 PM EDT [facility] MCV 89 79 - 98 fL LAB HEMATOLOGY METHOD 11/04/2024 3:33 PM EDT [facility] MCH 30.8 26.0 - 32.0 pg LAB HEMATOLOGY METHOD 11/04/2024 3:33 PM EDT [facility] MCHC 34.8 30.7 - 35.5 g/dL LAB HEMATOLOGY METHOD 11/04/2024 3:33 PM EDT [facility] RDW 13.2 11.5 - 14.5 % LAB HEMATOLOGY METHOD 11/04/2024 3:33 PM EDT [facility] MPV 10.6 8.8 - 12.5 fL LAB HEMATOLOGY METHOD 11/04/2024 3:33 PM EDT [facility] nRBC 0.0 <=0.0 per 100 WBCs LAB HEMATOLOGY METHOD 11/04/2024 3:33 PM EDT [facility] Blood Venous blood specimen / Unknown Venipuncture / Unknown 11/04/2024 1:34 PM EDT 11/04/2024 1:34 PM EDT Elisabet Knott APRN, DELIO LAB BLOOD ORDERABLES F inal Result Performing Organization Address [facility] Co de Phone Number [facility] [address] [place] [address] * C-Reactive Protein, Plasma (11/04/2024 1:34 PM EDT) [facility] CRP, Plasma <3.0 <=8.0 mg/L 11/04/2024 3:32 PM EDT [facility] Blood Venous blood specimen / Unknown Venipuncture / Unknown 11/04/2024 1:34 PM EDT 11/04/2024 1:34 PM EDT Narrative [facility] - 11/04/2024 3:32 PM EDT This CRP test is appropriate for assessment of infection, systemic inflammation and/or tissue injury. To assess cardiovascular disease risk order high sensitivity CRP (CRPH). us Elisabet Knott APRN, DNP LAB BLOOD ORDERABLES F inal Result Performing Organization Address [facility]/ZIP Co de Phone Number [facility] [address] [place] [address] * Thyroid Stimulating Hormone, Plasma (11/04/2024 1:34 PM EDT) Thyroid Stimulating Hormone, Plasma 1.33 0.40 - 4.20 uIU/mL 11/04/2024 3:32 PM EDT [facility] Blood Venous blood specimen / Unknown Venipuncture / Unknown 11/04/2024 1:34 PM EDT 11/04/2024 1:34 PM EDT Elisabet Knott APRN, DELIO LAB BLOOD ORDERABLES F inal Result Performing Organization Address City/[facility]/[place] [address] * (ABNORMAL) Lipase, Plasma (11/04/2024 1:34 PM EDT) Pathologist [facility] Lipase, Plasma 73(H) 19 - 63 U/L 11/04/2024 3:32 PM EDT [facility] Blood Venous blood specimen / Unknown Venipuncture / Unknown 11/04/2024 1:34 PM EDT 11/04/2024 1:34 PM EDT us Elisabet Knott APRN, DELIO LAB BLOOD ORDERABLES F inal Result Performing Organization Address [facility] [place] [address] * (ABNORMAL) IgA, Plasma (11/04/2024 1:34 PM EDT) Pathologist [facility] IGA 60(L) 75 - 400 mg/dL 11/04/2024 3:32 PM EDT [facility] Blood Venous blood specimen / Unknown Venipuncture / Unknown 11/04/2024 1:34 PM EDT 11/04/2024 1:34 PM EDT us Elisabet Knott APRN, DNP LAB BLOOD ORDERABLES F inal Result Performing Organization Address City/[facility]/[place] [address] * (ABNORMAL) Conjugated Bilirubin, Plasma (11/04/2024 1:34 PM EDT) Conjugated Bilirubin, Plasma 0.6(H) <=0.3 mg/dL 11/04/2024 3:32 PM EDT [facility] Blood Venous blood specimen / Unknown Venipuncture / Unknown 11/04/2024 1:34 PM EDT 11/04/2024 1:34 PM EDT Elisabet Knott APRN, DNP LAB BLOOD ORDERABLES F inal Result [facility] [address] [place] [address] * (ABNORMAL) Comprehensive Metabolic Panel, Plasma (11/04/2024 1:34 PM EDT) Glucose, Plasma 101(H) 74 - 99 mg/dL 11/04/2024 3:32 PM EDT [facility] BUN, Plasma 12 7 - 21 mg/dL 11/04/2024 3:32 PM EDT [facility] Creatinine, Plasma 0.91 0.70 - 1.20 mg/dL 11/04/2024 3:32 PM EDT [facility] BUN/Creatinine Ratio 13 11/04/2024 3:32 PM EDT [facility] Sodium, Plasma 144 136 - 145 mmol/L 11/04/2024 3:32 PM EDT [facility] Potassium, Plasma 3.9 3.6 - 4.9 mmol/L 11/04/2024 3:32 PM EDT [facility] Chloride, Plasma 101 97 - 107 mmol/L 11/04/2024 3:32 PM EDT [facility] CO2, Plasma 29 22 - 29 mmol/L 11/04/2024 3:32 PM EDT [facility] Anion Gap 14 6 - 16 mmol/L 11/04/2024 3:32 PM EDT [facility] Total Calcium, Plasma 10.1 8.9 - 10.2 mg/dL 11/04/2024 3:32 PM EDT [facility] Total Protein 7.2 6.3 - 7.9 g/dL 11/04/2024 3:32 PM EDT [facility] Albumin, Plasma 5.0 3.5 - 5.2 g/dL 11/04/2024 3:32 PM EDT [facility] AST, Plasma 18 10 - 50 U/L 11/04/2024 3:32 PM EDT [facility] ALT, Plasma 27 10 - 50 U/L 11/04/2024 3:32 PM EDT [facility] Alkaline Phosphatase, Plasma 65 40 - 115 U/L 11/04/2024 3:32 PM EDT [facility] Total Bilirubin, Plasma 4.6(H) 0.2 - 1.1 mg/dL 11/04/2024 3:32 PM EDT [facility] eGFRcr 102.7 mL/min/1.7 3m*2 11/04/2024 3:32 PM EDT [facility] Comment:Reported eGFRcr in m L/min/1.73m2 is based the CKD-EPI 2020 equation that does not use a race coefficient. Blood Venous blood specimen / Unknown Venipuncture / Unknown 11/04/2024 1:34 PM EDT 11/04/2024 1:34 PM EDT Elisabet Knott APRN, DNP LAB BLOOD ORDERABLES F inal Result Performing Organization Address City/State/[facility] Co de Phone Number [facility] [address] [place] [address] from Last 3 Months Insurance Care Teams Knife Setter Grinder Machine Relationship Specialty Start Date End Date Kimo Smith MD [address] [place] [address] PCP - General 11/04/24
--- OUTSIDE RECORDS SUMMARY | 2024-11-10 07:48 | XMS_ITS | Encounter Summary ---
Author Organization [facility] Address [address] [place] [address] Care Team Providers Care Film Masker Name Role Phone Kimo Smith MD Primary Care Provider [phone] Encounter Details Date Type Department Care Team (Latest Contact Info) Description 11/04/2024 Travel Social History Tobacco Use Types Packs/Day Years Used Date Smoking Tobacco: Never Passive Smoke Exposure: Never Smokeless Tobacco: Never Alcohol Use Standard Drinks/Week Comments Not Currently [...] on file documented as of this encounter Functional Status * Over the past 2 weeks, how often have you been bothered by any of the following problems? Question Answer Date of Assessment Author Little interest or pleasure in doing things Not at all 11/04/2024 12:09 PM EDT Gunter, Tempest A Feeling down, depressed, or hopeless Not at all 11/04/2024 12:09 PM EDT Gunter, Tempest A Patient Health Questionnaire -2 Score 0 11/04/2024 12:09 PM EDT Gunter, Tempest A * Question Answer Date of Assessment Author Trouble falling or staying asleep, or sleeping too much Not at all 11/04/2024 12:09 PM EDT Gunter, Tempest A Feeling tired or having katie le energy Not at all 11/04/2024 12:09 PM EDT Lyric Tempest A Poor appetite or overeating Not at all 11/04/2024 12 :09 PM EDT Lyric Tempest A Feeling bad about yourself - or that you are a failure or have let yourself or your family down Not at all 11/04/2024 12:09 PM EDT Fizak ralph Tempest A Trouble concentrating on thi ngs, such as reading the newspaper or watching television Not at all 11/04/2024 12:09 PM EDT Lyric Tempest A Moving or speaking so slowly that other people could have noticed? Or the opposite - being so fidgety or restless that you have been moving around a lot more than usual. Not at all 11/04/2024 12:09 PM EDT Lyric Tempest A Thoughts that you would be better off or hurting yourself in some way Not at all 11/04/2024 12:09 PM EDT Rogelio Gunterpest A Patient Health Questionnaire -9 Score 0 11/04/2024 12:09 PM EDT Lyric Tempest A * If you checked off any [...] Description 12/08/2024 2:30 PM EDT Office Visit [facility] Medicine Specialties [address] [place] [address] Hira Wiggins PA [address] [place] [address] documented as of this encounter Visit Diagnoses Not on filedocumented in this encounter Additional Health Concerns Assessment Noted Time PHQ-9 Depression Total Score: 0 11/05/19 25 12:09 PM EDT A fall risk assessment has been complete d for the patient 11/04/2024 12:09 PM EDT documented as of this encounter Care Teams Film Masker Relationship Specialty Start Date End Date Kimo Smith MD [address] [place] [address] PCP - General 11/04/24 documented as of this encounter
[2024-11-10 07:50] LABS: Adenovirus F 40/41, stool Not Detected (NotDetected); Cyclospora Cayetanesis Not Detected (NotDetected); Plesimonas Shigalloides, PCR Not Detected (NotDetected); Salmonella, PCR Not Detected (NotDetected); Shiga-like toxin E coli Not Detected (NotDetected); Shigella Enterovasive E coli Not Detected (NotDetected); Vibrio, PCR Not Detected (NotDetected); Yersinia Entercolitica, PCR Not Detected (NotDetected)
[2024-11-10 12:58] LABS: Clostridium Difficile A/B, PCR Detected (NotDetected)
[2024-11-14 17:27] LABS: Pancreatic Elastase, Fecal >800 (>200)
[2024-11-14 18:23] LABS: Calprotectin, Fecal 47 ug/g (0-120)
== END 2024-11-10 23:59 | disposition home or self-care (01) ==
LOC: LAB.DROPOF 07:46
PROVIDERS: PCP Family Medicine
DX: K62.5 Hemorrhage of anus and rectum (principal); R19.7 Diarrhea, unspecified; R10.9 Unspecified abdominal pain; R14.0 Abdominal distension (gaseous)
CPT/HCPCS: 82653; 83993; 87177; 87507